=== PATIENT | female | born 1940 | race Caucasian/White ===

== ENCOUNTER 2016-09-02 17:59 | Inpatient (IN) | payer MEDICARE ==
[2016-09-02] MEDS ORDERED: NS 0.9% IV ONE (18:12)
[2016-09-02] MEDS ORDERED: cefTRIAXone(*) 1 GM in NS 0.9% 50 ML* 50 ML IVPB ONE (18:13)
[2016-09-02] MEDS ORDERED: Azithromycin IV(*) 500 MG in NS 0.9% 250 ML* 250 ML IVPB ONE (18:14)
[2016-09-02] MEDS ORDERED: Albuterol/Ipratropium NEB.SOL* Albuterol 2.5 MG/Ipratropium 0.5 MG 3 ML INH ONE (18:15)
[2016-09-02 18:45] LABS: Hematocrit 48 % (35-47); Hemoglobin 15.7 g/dl (12.0-16.0); Mean Corpuscular HGB Conc 33 g/dl (31-36); Mean Corpuscular Hemoglobin 31 pg (27-31); Mean Corpuscular Volume 93 fL (80-97); Red Blood Count 5.11 10^6/ul (4.0-5.4); Red Cell Distribution Width 15 % (10.5-15); White Blood Count 18.3 10^3/ul (3.5-10.8)
[2016-09-02 18:50] LABS: Comments Flag Yes
[2016-09-02 18:51] LABS: Add Diff/Slide Review? Slide Review Added
--- NOTE | 2016-09-02 18:52 | RAD ---
INDICATION: COPD. Febrile. COMPARISON: May 17, 2016 TECHNIQUE: An AP portable view obtained at 1820 hours is submitted. FINDINGS: Bones/Soft Tissues: There are no acute bony findings. Cardiomediastinal: The heart is normal in size. There is interval increase in the size of the right hilum which may reflect adenopathy which is likely reactive given the rapid change or this could be related to a perihilar infiltrate. Lungs: Probable right perihilar and right lower lobe infiltrate. There is hyperinflation. Pleura: There are no pleural effusions. Other: None IMPRESSION: RIGHT-SIDED INFILTRATE AND PRESUMED REACTIVE LYMPHADENOPATHY VERSUS PERIHILAR INFILTRATE. SUGGEST FOLLOW-UP IN 2-4 WEEKS TO DOCUMENT STABILITY AND/OR RESOLUTION
[2016-09-02 18:59] LABS: Albumin 3.6 g/dL (3.2-5.2); BUN/Creatinine Ratio 26.4 (8-20); Calcium 10.1 mg/dL (8.6-10.3); EGFR African American 47.1 (>60); EGFR Non-African American 36.7 (>60); Globulin 3.3 g/dL (2-4); Potassium 3.2 mmol/L (3.5-5.0); Total Bilirubin 0.6 mg/dL (0.2-1.0); Total Protein 6.9 g/dL (6.4-8.9)
[2016-09-02 19:03] LABS: Troponin I 0.06 ng/mL (<0.04)
[2016-09-02] MEDS ORDERED: methylPREDNISolone 125 MG* 2 ML VIAL IV ONE (19:20)
--- NOTE | 2016-09-02 19:22 | ED ---
Sulma Montano Michael, scribed for Elissa Olvera MD on 09/02/16 at 1826 . Shortness of Breath - HPI Summary HPI Summary: 75 y/o female was BIBA to the ED presenting with new onset of SOB that started 2 days ago. The pt also presents with a fever of a 101.1 temperature and tachycardia of 143 bpm. 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 The pt is a current smoker who lives at home with her daughter and is on 2 liters of home oxygen. The PMHx is significant for COPD and Dementia. - History of Current Complaint Chief Complaint: EDShortnessOfBreath Time Seen by Provider: 09/02/16 18:11 Hx Obtained From: EMS, Medical Records Hx From Patient Unobtainable Due To: Dementia Onset/Duration: Gradual Onset, Still Present Timing: Constant Current Severity: Moderate Dyspnea At: Rest Associated Signs & Symptoms: Fever - SOB. A-fib. - Allergy/Home Medications Allergies/Adverse Reactions: Allergies Allergy/AdvReac Type Severity Reaction Status Date / Time Sulfa Drugs Allergy Mild Unknown Verified 07/04/15 17:44 Reaction Details Enoxaparin [From Lovenox] Allergy HIT Verified 07/04/15 19:03 Gabapentin [From Neurontin] Allergy CONFUSION Verified 07/04/15 17:44 Heparin Allergy HIT Verified 07/04/15 19:03 ENVIRONMENTAL Allergy Mild SEASONAL Uncoded 07/02/12 23:37 BEES Allergy Unknown Unknown Uncoded 07/02/12 23:37 Reaction Details PMH/Surg Hx/FS Hx/Imm Hx Endocrine/Hematology History: Reports: Hx Anticoagulant Therapy - Currently on coumadin, Heparin causes thrombocytopenia, Hx Anemia - HX OF Denies: Hx Diabetes, Hx Systemic Lupus Erythematosus Cardiovascular History: Reports: Hx Aneurysm - AAA, Hx Congestive Heart Failure , Hx Deep Vein Thrombosis, Hx Hypercholesterolemia, Hx Hypertension, Other Cardiovascular Problems/Disorders - paroxysmal afib, HLD, Hx DVt Respiratory History: Reports: Hx Asthma, Hx Chronic Obstructive Pulmonary Disease (COPD), Other Respiratory Problems/Disorders - TROUBLE BREATHING ON HUMID DAYS GI History: Reports: Hx Gall Bladder Disease - Cholecystectomy, Hx Gastroesophageal Reflux Disease, Hx Gastrointestinal Bleed, Other GI Disorders - AAA History: Reports: Hx Kidney Infection - 50+ YEARS AGO, Other Problems/ Disorders - Urgency Denies: Hx Dialysis, Hx Renal Disease Musculoskeletal History: Reports: Hx Arthritis - GENERALIZED, Hx Back Problems - Chronic back pain Sensory History: Reports: Hx Cataracts - Removed, Hx Contacts or Glasses - at home Denies: Hx Hearing Aid Opthamlomology History: Reports: Hx Cataracts - Removed, Hx Contacts or Glasses - at home Neurological History: Reports: Hx Dementia, Hx Migraine - HX Psychiatric History: Reports: Hx Depression - ON MEDICATION FOR - Surgical History Surgery Procedure, Year, and Place: TUBAL,TMJ,CATARACTS BILAT,KNEE RIGHT REPLACEMENT,AAA, SANDEEP/APPY Hx Anesthesia Reactions: No - Immunization History Date of Tetanus Vaccine: Unk Date of Influenza Vaccine: Fall 2014 Infectious Disease History: No Infectious Disease History: Reports: Hx of Known/Suspected MRSA Denies: Traveled Outside the [place] in Last 30 Days - Family History Known Family History: Positive: Other - Alzheimer's (mother) - Social History Occupation: Retired Lives: With Family Alcohol Use: Rare Substance Use Type: Reports: None Smoking Status (MU): Heavy Every Day Tobacco Smoker Type: Cigarettes Amount Used/How Often: 1 pack a day Length of Time of Smoking/Using Tobacco: 50 years Have You Smoked in the Last Year: Yes Review of Systems Positive: Fever Positive: Other - a-fib Positive: Shortness Of Breath All Other Systems Reviewed And Are Negative: Yes Physical Exam Triage Information Reviewed: Yes Vital Signs On Initial Exam: Initial Vitals Temp Pulse Resp BP Pulse Ox 101.1 F 143 28 171/110 93 09/02/16 18:01 09/02/16 18:01 09/02/16 18:01 09/02/16 18:01 09/02/16 18:01 Vital Signs Reviewed: Yes Appearance: Positive: Well-Appearing, No Pain Distress Skin: Positive: Warm, Skin Color Reflects Adequate Perfusion, Dry Eyes: Positive: EOMI, AGUSTINA ENT: Positive: Pharynx normal, TMs normal Neck: Positive: Supple, Nontender Respiratory/Lung Sounds: Positive: Breath Sounds Present, Rhonchi - left base. Negative: Rales, Wheezes Cardiovascular: Positive: Tachycardia, Other. Negative: Murmur, Rub - no gallops Abdomen Description: Positive: Nontender, Soft, Other: - no rebound. Negative: Distended, Guarding Bowel Sounds: Positive: Present Musculoskeletal: Positive: Strength/ROM Intact. Negative: Edema Left, Edema Right Neurological: Positive: Sensory/Motor Intact, Alert, Oriented to Person Place, Time, CN Intact II-III Psychiatric: Positive: Affect/Mood Appropriate - Bong Coma Scale Coma Scale Total: 14 Diagnostics - Vital Signs Vital Signs Temp Pulse Resp BP Pulse Ox 09/02/16 18:11 152/105 09/02/16 18:10 112 31 92 09/02/16 18:05 101.1 F 135 29 171/110 93 09/02/16 18:01 101.1 F 143 28 171/110 93 - Laboratory Lab Results: Lab Results 09/02/16 09/02/16 09/02/16 Range/Units 18:30 18:30 18:30 WBC 18.3 H (3.5-10.8) 10^3/ul RBC 5.11 (4.0-5.4) 10^6/ul Hgb 15.7 (12.0-16.0) g/dl Hct 48 H (35-47) % MCV 93 (80-97) fL MCH 31 (27-31) pg MCHC 33 (31-36) g/dl RDW 15 (10.5-15) % Plt Count Pending MPV Pending Neut % (Auto) 94.8 H (38-83) % Lymph % (Auto) 1.9 L (25-47) % [place] % (Auto) 1.9 (1-9) % Eos % (Auto) 0 (0-6) % Baso % (Auto) 1.4 (0-2) % Absolute Neuts (auto) 17.4 H (1.5-7.7) 10^3/ul Absolute Lymphs (auto) 0.3 L (1.0-4.8) 10^3/ul Absolute Monos (auto) 0.4 (0-0.8) 10^3/ul Absolute Eos (auto) 0 (0-0.6) 10^3/ul Absolute Basos (auto) 0.3 H (0-0.2) 10^3/ul Absolute Nucleated RBC 0 10^3/ul Nucleated RBC % 0 INR (Anticoag Therapy) 1.09 (0.89-1.11) APTT 35.6 (26.0-36.3) seconds Sodium 136 (133-145) mmol/L Potassium 3.2 L (3.5-5.0) mmol/L Chloride 96 L (101-111) mmol/L Carbon Dioxide 28 (22-32) mmol/L Anion Gap 12 H (2-11) mmol/L BUN 37 H (6-24) mg/dL Creatinine 1.40 H (0.51-0.95) mg/dL Est GFR ( Amer) 47.1 (>60) Est GFR (Non-Af Amer) 36.7 (>60) BUN/Creatinine Ratio 26.4 H (8-20) Glucose 163 H (70-100) mg/dL Lactic Acid (0.5-2.0) mmol/L Calcium 10.1 (8.6-10.3) mg/dL Total Bilirubin 0.60 (0.2-1.0) mg/dL AST 33 (13-39) U/L ALT 31 (7-52) U/L Alkaline Phosphatase 66 (34-104) U/L Troponin I 0.06 H* (<0.04) ng/mL Total Protein 6.9 (6.4-8.9) g/dL Albumin 3.6 (3.2-5.2) g/dL Globulin 3.3 (2-4) g/dL Albumin/Globulin Ratio 1.1 (1-3) Influenza A (Rapid) (Negative) Influenza B (Rapid) (Negative) 09/02/16 09/02/16 Range/Units 18:30 18:56 WBC (3.5-10.8) 10^3/ul RBC (4.0-5.4) 10^6/ul Hgb (12.0-16.0) g/dl Hct (35-47) % MCV (80-97) fL MCH (27-31) pg MCHC (31-36) g/dl RDW (10.5-15) % Plt Count MPV Neut % (Auto) (38-83) % Lymph % (Auto) (25-47) % [place] % (Auto) (1-9) % Eos % (Auto) (0-6) % Baso % (Auto) (0-2) % Absolute Neuts (auto) (1.5-7.7) 10^3/ul Absolute Lymphs (auto) (1.0-4.8) 10^3/ul Absolute Monos (auto) (0-0.8) 10^3/ul Absolute Eos (auto) (0-0.6) 10^3/ul Absolute Basos (auto) (0-0.2) 10^3/ul Absolute Nucleated RBC 10^3/ul Nucleated RBC % INR (Anticoag Therapy) (0.89-1.11) APTT (26.0-36.3) seconds Sodium (133-145) mmol/L Potassium (3.5-5.0) mmol/L Chloride (101-111) mmol/L Carbon Dioxide (22-32) mmol/L Anion Gap (2-11) mmol/L BUN (6-24) mg/dL Creatinine (0.51-0.95) mg/dL Est GFR ( Amer) (>60) Est GFR (Non-Af Amer) (>60) BUN/Creatinine Ratio (8-20) Glucose (70-100) mg/dL Lactic Acid 4.4 H* (0.5-2.0) mmol/L Calcium (8.6-10.3) mg/dL Total Bilirubin (0.2-1.0) mg/dL AST (13-39) U/L ALT (7-52) U/L Alkaline Phosphatase (34-104) U/L Troponin I (<0.04) ng/mL Total Protein (6.4-8.9) g/dL Albumin (3.2-5.2) g/dL Globulin (2-4) g/dL Albumin/Globulin Ratio (1-3) Influenza A (Rapid) Negative (Negative) Influenza B (Rapid) Negative (Negative) Result Diagrams: 09/02/16 18:30 09/02/16 18:30 Lab Statement: Any lab studies that have been ordered have been reviewed, and results considered in the medical decision making process. - Radiology CXR Xray Interpretation: Positive (See Comments) - RIGHT-SIDED INFILTRATE AND PRESUMED REACTIVE LYMPHADENOPATHY VERSUS PERIHILAR INFILTRATE. SUGGEST FOLLOW- UP IN 2-4 WEEKS TO DOCUMENT STABILITY AND/OR RESOLUTION Radiology Interpretation Completed By: Radiologist - EKG EK EKG Rhythm: Atrial Fibrillation - 140 bpm EKG Interpretation: non specific T wave changes. poor R wave progression. LVH. EKG Comparison: Other - Compared to EKG on 05/17-EKG is similar except for increase in t wave changes and increased heart rate on todays EKG Course/Dx - Course Course Of Treatment: Suspected sepsis-sepsis protocol started. Consulted with Dr. Wang at 1850-pt will be admitted to the hospital - Diagnoses Provider Diagnoses: COPD exacerbation, Pneumonia Discharge - Discharge Plan Condition: Guarded Disposition: ADMITTED TO [facility] The documentation as recorded by the Sulma franz Michael accurately reflects the service I personally performed and the decisions made by me, Elissa Olvera MD.
[2016-09-02 19:24] LABS: Immature Granulocytes 34 % (0-9); Metamyelocytes % 11 % (0-2); Neutrophil % 63 % (38-83); RBC Morphology Normal (Normal)
[2016-09-02 19:25] LABS: Mean Platelet Volume 13 um3 (7.4-10.4)
[2016-09-02] MEDS ORDERED: Albuterol 2.5 MG/3 ML NEB.SOL* (0.083%) INH PRN (19:40)
[2016-09-02] MEDS ORDERED: Ipratropium 0.5MG/2.5ML NEB* 0.5 MG/2.5 ML NEB.SOLN INH PRN (19:42)
[2016-09-02] MEDS ORDERED: methylPREDNISolone 125 MG* 2 ML VIAL IV SCH ×2 (20:00)
[2016-09-02] MEDS ORDERED: LORazepam INJ* 2 MG/ML 1 ML VIAL IV ONE (20:50)
[2016-09-02] MEDS ORDERED: LORazepam INJ* 2 MG/ML 1 ML VIAL ONE (20:54)
[2016-09-02] MEDS ORDERED: HYDROmorphone INJ* 1 MG/ML CARPUJECT SYRINGE ONE (20:55)
[2016-09-02 20:56] LABS: Urine Bacteria 1+ (Absent); Urine Bilirubin Negative (Negative); Urine Glucose Negative (Negative); Urine Nitrite Negative (Negative)
[2016-09-02] MEDS ORDERED: Amiodarone TAB* 200 MG PO SCH (21:00)
[2016-09-02] MEDS: HYDROmorphone INJ* 1 MG/ML CARPUJECT SYRINGE IV PRN ×2 (21:09→23:51)
--- NOTE | 2016-09-02 22:23 | HP ---
CC: Dr. Mcdonald ADMISSION HISTORY AND PHYSICAL: DATE OF ADMISSION: 09/02/16 CHIEF COMPLAINT: Shortness of breath. HISTORY OF PRESENT ILLNESS: Ms. Tovar is a 75-year-old woman with history of severe COPD, who continues to smoke, who was found to be disoriented this afternoon by her daughter. She appeared acutely short of breath. Her daughter reports she talked to her on the phone yesterday and she sounded fine and she saw her on and she was at her baseline. At baseline, she uses her oxygen p.r.n. and smokes 1 to 2 packs per day. The patient lives alone. The patient cannot give me her history due to the respiratory distress. Review of the chart shows that she was last admitted to this hospital on through 07/12/15 with abdominal pain, rectus sheath hematoma, anemia, at that time her anticoagulation for atrial fibrillation was stopped. PAST MEDICAL HISTORY: Includes paroxysmal atrial fibrillation, hypertension, hyperlipidemia, COPD, history of DVT, history of HIT, depression, GERD, and Alzheimer's. PAST SURGICAL HISTORY: AAA repair, cholecystectomy complicated by abdominal abscess, right total knee replacement, and appendectomy. MEDICATIONS: On admission are: 1. Tylenol as needed. 2. Albuterol inhaler 2 puffs q.4 hours p.r.n. 3. Amiodarone 100 mg p.o. q.h.s. 4. Calcium 1 tab p.o. q. day. 5. EpiPen as needed. 6. Iron 325 mg p.o. q. day. 7. Furosemide 40 mg p.o. q. day. 8. Melatonin 9 mg p.o. q.h.s. 9. Toprol-XL 50 mg p.o. q. day. 10. Mometasone/formoterol 200/5 two inhalations inhaled b.i.d. 11. Singulair 10 mg p.o. q.a.m. 12. Omeprazole 20 mg p.o. b.i.d. 13. Potassium chloride 20 mEq p.o. q.a.m. 14. Seroquel 25 mg p.o. q.h.s. 15. Simvastatin 20 mg p.o. q.h.s. 16. Spiriva 1 inhalation q. day. 17. Venlafaxine SR 150 mg p.o. q.h.s. 18. Oxycodone SR 15 mg p.o. b.i.d. 19. Oxycodone 5 mg 1 to 2 tabs p.o. q.6 hours p.r.n. pain. ALLERGIES: SULFA DRUGS, ENOXAPARIN and ALL OTHER HEPARINS, GABAPENTIN, BEE STINGS, and ENVIRONMENTAL ALLERGIES. FAMILY HISTORY: Notable for mother of Alzheimer's disease in . She is retired. She is . She has 4 children. Her daughter, Thomas, is present. Her daughter, Radha, is her healthcare proxy who is also present. SOCIAL HISTORY: She still smokes 1 to 2 packs per day. No alcohol or drug use. REVIEW OF SYSTEMS: The patient could not complete a review of systems due to respiratory distress. PHYSICAL EXAMINATION GENERAL: She is an elderly woman, somnolent, arousable to voice, in severe respiratory distress. VITAL SIGNS: Temperature is 38.4; pulse is 124 to 128; respirations are 24 to 32; blood pressure is 167/127; O2 sat is 92% on Vapotherm, down to 80% on Vapotherm. HEENT: Head is normocephalic, atraumatic, somewhat cachetic. Oropharynx: No lesions. NECK: No JVD. No carotid bruit. No thyromegaly. LUNGS: Diminished throughout. No rales or wheezes. HEART: Tachycardiac, irregular. No murmurs. ABDOMEN: Soft, nontender, nondistended, positive bowel sounds. No hepatosplenomegaly. EXTREMITIES: No peripheral edema. Dorsalis pedis pulses 1+ bilaterally. NEUROLOGIC: Cranial nerves II through XII are grossly intact. She is moving all 4 extremities. She is somnolent, knows her name when stimulated and answers questions, though she is quite inaudible due to her respiratory distress. DIAGNOSTIC STUDIES/LAB DATA: Sodium 136, potassium 3.2, chloride 96, bicarb 28 , BUN 37, creatinine 1.4, glucose 163, calcium 10.1, lactic acid 4.4. AST 33, ALT 31. White count 18.3, hemoglobin 15.7, hematocrit 48%, platelets are 143. INR 1.09 , PTT 35.6. EKG shows atrial fibrillation with rapid ventricular response at 130. Chest x-ray shows right perihilar infiltrate versus mass as well as a right lower lobe infiltrate. ASSESSMENT AND PLAN: A 75-year-old woman with sepsis defined by having systemic inflammatory response syndrome criteria and pneumonia as well as elevated lactate. She is not hypertensive at this time. Fluid infusion started in the emergency department will be continued in the ICU. Due to her hypokalemia, we have chosen to use normal saline with potassium supplement. To address source control, she will have azithromycin and ceftriaxone for community -acquired pneumonia. For her chronic obstructive pulmonary disease exacerbation, she will be on IV Solu- Medrol and nebulizers. This patient is high risk of decomposition and from this acute respiratory failure. She has been started on BiPAP and no higher level respiratory intervention is planned. Tachycardia and atrial fibrillation will be initially addressed by treatment of respiratory distress and volume resuscitation. I discussed code status with the patient's daughters. The daughter, Radha, is healthcare proxy, signed a do not resuscitate, do not intubate on the MOLST form and this was agreed upon by one and all present. For DVT prophylaxis, she is very high risk but she can only have sequential compression devices due to her known history of heparin-induced thrombocytopenia. I am holding most of her oral meds because she probably cannot swallow given her respiratory distress. We will continue her on amiodarone and Toprol if possible to give her some rate control, but mainly rate control accomplished by giving Tylenol and IV fluids to control sepsis and hypovolemia. [id number]/[facility] #: [id number] MTDD
[2016-09-02] MEDS: NS 0.9% w/ 20 Meq KCL 1000 ML* 1,000 ML IV SCH (22:51)
[2016-09-02] MEDS ORDERED: AMIODARONE IV ONE (23:30)
[2016-09-02] MEDS ORDERED: AMIODARONE IV SCH (23:30)
[2016-09-02] MEDS: Omeprazole CAP* 20 MG PO SCH (23:47)
[2016-09-03] MEDS ORDERED: Diltiazem IV* 5 MG/ML 5 ML VIAL (for loading dose/IV Push) (25 MG) ONE (00:54)
[2016-09-03] MEDS: NS 0.9% w/ 20 Meq KCL 1000 ML* 1,000 ML IV SCH ×3 (01:00→16:51)
[2016-09-03] MEDS: Diltiazem IV* 5 MG/ML 5 ML VIAL (for loading dose/IV Push) (25 MG) IV PUSH ONE ×2 (03:41→05:15)
[2016-09-03] MEDS: methylPREDNISolone 125 MG* 2 ML VIAL IV SCH ×3 (03:50→21:06)
[2016-09-03] MEDS ORDERED: Diltiazem IV* 5 MG/ML 5 ML VIAL (for loading dose/IV Push) (25 MG) IV PUSH ONE (04:45)
[2016-09-03] MEDS ORDERED: Diltiazem DRIP* 100 MG/100 ML ADDV.BAG IVPB ONE (05:08)
[2016-09-03] MEDS: HYDROmorphone INJ* 1 MG/ML CARPUJECT SYRINGE IV PRN ×2 (05:10→16:50)
[2016-09-03 05:51] LABS: Hematocrit 45 % (35-47); Hemoglobin 14.9 g/dl (12.0-16.0); Mean Corpuscular HGB Conc 33 g/dl (31-36); Mean Corpuscular Hemoglobin 31 pg (27-31); Mean Corpuscular Volume 93 fL (80-97); Mean Platelet Volume 13 um3 (7.4-10.4); Red Blood Count 4.85 10^6/ul (4.0-5.4); Red Cell Distribution Width 15 % (10.5-15); White Blood Count 16.8 10^3/ul (3.5-10.8)
[2016-09-03 05:59] LABS: Comments Flag Yes
[2016-09-03 06:03] LABS: BUN/Creatinine Ratio 31.9 (8-20); Calcium 9.5 mg/dL (8.6-10.3); EGFR African American 60.4 (>60); EGFR Non-African American 46.9 (>60); Magnesium 1.8 mg/dL (1.9-2.7); Potassium 3.7 mmol/L (3.5-5.0)
[2016-09-03 06:15] LABS: Troponin I 0.06 ng/mL (<0.04)
[2016-09-03] MEDS ORDERED: Metoprolol Tartrate IV* 1 MG/ML 5 ML VIAL ONE (08:18)
[2016-09-03] MEDS ORDERED: Metoprolol Tartrate IV* 1 MG/ML 5 ML VIAL IV ONE (08:20)
[2016-09-03] MEDS: Metoprolol Succinate XL TAB* 50 MG PO SCH (08:22)
[2016-09-03] MEDS: Omeprazole CAP* 20 MG PO SCH ×2 (08:22→21:07)
[2016-09-03] MEDS ORDERED: Enalaprilat IV* 1.25 MG/ML 1 ML VIAL (1.25 MG) IV PRN (09:24)
[2016-09-03] MEDS ORDERED: Enalaprilat IV* 1.25 MG/ML 1 ML VIAL (1.25 MG) ONE (09:30)
--- NOTE | 2016-09-03 10:36 | PN ---
Subjective Date of Service: 09/03/16 Interval History: Patient has been on BiPAP since admission, just came off this AM. She is feeling alright, states breathing is OK. Denies chest pain. Willing to quit smoking, has used patch in past. Overnight started on diltiazem drip. Also received IV amiodarone due to inability to take PO amio. Family History: Unchanged from Admission Social History: Unchanged from Admission Past Medical History: Unchanged from Admission Objective Active Medications: Acetaminophen (Tylenol Tab*) 650 mg PO Q4H PRN PRN Reason: PAIN OR TEMPERATURE Albuterol (Ventolin 2.5 Mg/3 Ml Neb.Gianna*) 2.5 mg INH Q2H PRN PRN Reason: SOB/WHEEZING Amiodarone HCl (Cordarone Tab*) 100 mg PO 1800 YONY Hydromorphone HCl (Dilaudid Iv*) 0.5 mg IV Q2H PRN PRN Reason: PAIN Last Admin: 09/03/16 05:10 Dose: 0.5 mg Potassium Chloride/Sodium Chloride (Ns 0.9% W/ 20 Meq Kcl 1000 Ml*) 1,000 mls @ 100 mls/hr IV PER RATE [facility] Last Admin: 09/03/16 07:12 Dose: 100 mls/hr Ceftriaxone Sodium 1,000 mg/ (Sodium Chloride) 50 mls @ 200 mls/hr IVPB Q24H YONY Azithromycin 500 mg/ Sodium (Chloride) 250 mls @ 250 mls/hr IVPB Q24H YONY Diltiazem HCl (Cardizem Iv Advan*) 100 mg in 100 mls @ 5 mls/hr IVPB .PER RATE [facility] PRN Reason: 5 MG/HR Ipratropium Benoit (Atrovent 0.5 Mg Neb.Gianna*) 0.5 mg INH Q6H PRN PRN Reason: SOB/WHEEZING Methylprednisolone Sodium Succinate (Solu-Medrol*) 60 mg IV Q8H [facility] Last Admin: 09/03/16 03:50 Dose: 60 mg Metoprolol Succinate (Toprol Xl Tab*) 50 mg PO QAM [facility] Last Admin: 09/03/16 08:22 Dose: Not Given Omeprazole (Prilosec Cap*) 20 mg PO BID [facility] Last Admin: 09/03/16 08:22 Dose: Not Given Vital Signs 09/03/16 09/03/16 09/03/16 02:30 03:00 03:30 Temperature Pulse Rate 106 95 Respiratory 18 16 17 Rate Blood Pressure 151/82 147/111 179/124 (mmHg) O2 Sat by Pulse 100 100 Oximetry 09/03/16 09/03/16 09/03/16 04:30 04:35 05:00 Temperature Pulse Rate 103 100 103 Respiratory 25 23 23 Rate Blood Pressure 187/137 197/130 206/111 (mmHg) O2 Sat by Pulse 93 92 97 Oximetry 09/03/16 09/03/16 09/03/16 05:10 05:30 06:00 Temperature Pulse Rate 113 99 Respiratory 24 19 22 Rate Blood Pressure 179/134 169/130 (mmHg) O2 Sat by Pulse 92 98 Oximetry Oxygen Devices in Use Now: Nasal Cannula Eyes: No Scleral Icterus Ears/Nose/Mouth/Throat: Clear Oropharnyx Neck: NL Appearance and Movements; NL JVP Respiratory: Symmetrical Chest Expansion and Respiratory Effort, - - diminished throughout Cardiovascular: - - tachy, irregular, no murmur Abdominal: NL Sounds; No Tenderness; No Distention Extremities: No Edema Neurological: - - alert, oriented to self, hospital (unknown hospital) Lines/Tubes/Other Access: Clean, Dry and Intact Peripheral IV Result Diagrams: 09/03/16 05:35 09/03/16 05:35 Additional Lab and Data: Laboratory Tests 09/02/16 09/03/16 09/03/16 18:30 05:35 05:35 Lactic Acid 4.4 H* 2.0 Troponin I 0.06 H* Microbiology and Other Data: Microbiology 09/03/16 04:20 Nasal Screen MRSA (PCR)([facility]EX[facility]ER) - Final Nasal Mrsa Positive Assess/Plan/Problems-Billing Assessment: 75 yo woman w/ severe COPD, presented w/ acute hypoxic respiratory failure, required NIPPV. - Patient Problems (1) Acute respiratory failure with hypoxia Current Visit: Yes Status: Acute Priority: High Code(s): J96.01 - ACUTE RESPIRATORY FAILURE WITH HYPOXIA SNOMED Code(s): 56595589 Comment: -Patient appears to be doing well after 12 hrs on BiPAP. -Will tolerate O2sat in 88-92 range -consider restart BiPAP in evening, sooner if needed. (2) COPD exacerbation Current Visit: No Status: Acute Priority: High Code(s): J44.1 - CHRONIC OBSTRUCTIVE PULMONARY DISEASE W (ACUTE) EXACERBATION SNOMED Code(s): 646865818 Comment: -Continue treatment w/ IV solu-medrol, nebulizers -Discussed smoking cessation, will use nicotine patch (3) Pneumonia Current Visit: No Status: Acute Priority: High Code(s): J18.9 - PNEUMONIA , UNSPECIFIED ORGANISM SNOMED Code(s): 955618166 Comment: -Continue ceftriaxone and azithro, day 2. -Will need repeat CXR or CT chest to assess hilar lymphadenopathy (4) Hypertension Current Visit: No Status: Chronic Priority: Medium Code(s): I10 - ESSENTIAL (PRIMARY) HYPERTENSION SNOMED Code(s): 17092532 Comment: -BP significantly out of control. Stress/anxiety may play role. -Will start oral diltiazem and RADHA -Continue PO Toprol XL (5) Atrial fibrillation with RVR Current Visit: Yes Status: Acute Priority: Medium Code(s): I48.91 - UNSPECIFIED ATRIAL FIBRILLATION SNOMED Code(s): 181196447176176 Comment: -rate control improved on diltiazem drip. Will attempt to convert to PO -continue amiodarone PO, but unclear indication if a-fib is chronic, generally would be used for rhythm control. (6) DVT prophylaxis Current Visit: No Status: Acute Priority: Low Code(s): ZIS9880 - SNOMED Code(s): 494424288 Comment: SCDs, no heparins due to HIT
[2016-09-03] MEDS: Diltiazem TAB* 30 MG PO SCH ×3 (11:49→23:41)
[2016-09-03] MEDS: Diltiazem DRIP* 100 MG/100 ML ADDV.BAG IVPB SCH ×2 (12:23→18:12)
[2016-09-03] MEDS ORDERED: Enalapril TAB* 5 MG PO SCH (14:00)
[2016-09-03] MEDS ORDERED: Morphine INJ* 2 MG/ML 1 ML CARPUJECT ONE (14:14)
[2016-09-03] MEDS: Morphine INJ* 2 MG/ML 1 ML CARPUJECT IV PRN (14:17)
[2016-09-03] MEDS: Magnesium Oxide TAB* 400 MG PO SCH (14:27)
[2016-09-03] MEDS ORDERED: Captopril TAB* 12.5 MG ONE (16:45)
[2016-09-03] MEDS: Captopril TAB* 12.5 MG PO SCH ×2 (16:50→21:07)
[2016-09-03] MEDS: Donepezil TAB* 5 MG PO SCH (16:50)
[2016-09-03] MEDS ORDERED: Amiodarone TAB* 200 MG PO SCH (18:00)
[2016-09-03] MEDS: cefTRIAXone VIAL(*) 1,000 MG in NS 0.9% 50 ML* 50 ML IVPB SCH (18:07)
[2016-09-03] MEDS: Azithromycin IV(*) 500 MG in NS 0.9% 250 ML* 250 ML IVPB SCH (18:43)
[2016-09-03] MEDS ORDERED: Nicotine Patch Removal NOTE FOLLOW UP SCH (21:00)
[2016-09-03] MEDS: Venlafaxine EXT RELEASE CAP* 75 MG PO SCH (21:07)
[2016-09-03] MEDS: Atorvastatin* 10 MG TAB PO SCH (21:08)
[2016-09-03] MEDS: QUEtiapine TAB* 25 MG PO SCH (21:26)
[2016-09-03] MEDS: hydrALAZINE IV* 20 MG/ML VIAL IV PRN (23:41)
[2016-09-04] MEDS ORDERED: diPHENhydraMINE IV* 50 MG/ML 1 ml VIAL (BENADRYL) IV PRN (00:15)
[2016-09-04] MEDS ORDERED: diPHENhydraMINE IV* 50 MG/ML 1 ml VIAL (BENADRYL) ONE (00:22)
[2016-09-04] MEDS: Morphine INJ* 2 MG/ML 1 ML CARPUJECT IV PRN ×3 (00:39→16:21)
[2016-09-04] MEDS: Diltiazem DRIP* 100 MG/100 ML ADDV.BAG IVPB SCH ×3 (00:56→14:12)
--- NOTE | 2016-09-04 02:12 | PN ---
Progress Note - Progress Note Note: Nursing called re: patient reporting chest discomfort, relieved via 2mg morphine. ECG stable, unchanged from admission excepting better rate control. Troponin increased from 0.06 to 0.12, suspect 2nd her primary issues of pneumonia, COPD, & hypoxic respiratory failure. Doubt primary coronary occlusive etiology. Continue to monitor, trend troponin.
[2016-09-04] MEDS ORDERED: Morphine INJ* 10 MG/ML 1 ML CARPUJECT IV ONE (02:46)
[2016-09-04] MEDS ORDERED: Morphine INJ* 10 MG/ML 1 ML CARPUJECT ONE (02:48)
[2016-09-04] MEDS: methylPREDNISolone 125 MG* 2 ML VIAL IV SCH ×3 (04:28→20:24)
[2016-09-04] MEDS: hydrALAZINE IV* 20 MG/ML VIAL IV PRN (04:35)
[2016-09-04] MEDS: NS 0.9% w/ 20 Meq KCL 1000 ML* 1,000 ML IV SCH (05:31)
[2016-09-04] MEDS: Diltiazem TAB* 30 MG PO SCH ×2 (06:02→12:05)
[2016-09-04 06:20] LABS: Troponin I 0.1 ng/mL (<0.04)
[2016-09-04] MEDS ORDERED: Nicotine PATCH 21 MG/24 HR* PATCH TRANSDERM SCH (08:00)
--- NOTE | 2016-09-04 09:39 | PN ---
Subjective Date of Service: 09/04/16 Interval History: Patient seen and examined at bedside. She is restless and picking at wires and tubes. When asked if she has any chest pain, trouble breathing, or discomfort, she states "No." Sister is at bedside. Concern was expressed for patient's agitation, as well as her living condition at home, as she lives home alone and falls frequently; family also expressed concern for her nutritional intake at home. Telemetry: Atrial fibrillation 120s-140s Family History: Unchanged from Admission Social History: Unchanged from Admission Past Medical History: Unchanged from Admission Objective Active Medications: Acetaminophen (Tylenol Tab*) 650 mg PO Q4H PRN PRN Reason: PAIN OR TEMPERATURE Albuterol (Ventolin 2.5 Mg/3 Ml Neb.Gianna*) 2.5 mg INH Q2H PRN PRN Reason: SOB/WHEEZING Atorvastatin Calcium (Lipitor*) 10 mg PO BEDTIME [facility] Last Admin: 09/03/16 21:08 Dose: 10 mg Captopril (Capoten Tab*) 12.5 mg PO TID [facility] Last Admin: 09/03/16 21:07 Dose: 12.5 mg Diltiazem HCl (Cardizem Tab*) 30 mg PO Q6HR [facility] Last Admin: 09/04/16 06:02 Dose: 30 mg Diphenhydramine HCl (Benadryl Iv*) 25 mg IV ONCE PRN PRN Reason: RESTLESSNESS Donepezil HCl (Aricept Tab*) 5 mg PO QPM [facility] Last Admin: 09/03/16 16:50 Dose: 5 mg Hydralazine HCl (Apresoline Iv*) 10 mg IV Q4H PRN PRN Reason: Systolic >170 Last Admin: 09/04/16 04:35 Dose: 10 mg Hydromorphone HCl (Dilaudid Iv*) 0.5 mg IV Q2H PRN PRN Reason: PAIN Last Admin: 09/03/16 16:50 Dose: 0.5 mg Potassium Chloride/Sodium Chloride (Ns 0.9% W/ 20 Meq Kcl 1000 Ml*) 1,000 mls @ 100 mls/hr IV PER RATE [facility] Last Admin: 09/04/16 05:31 Dose: 100 mls/hr Ceftriaxone Sodium 1,000 mg/ (Sodium Chloride) 50 mls @ 200 mls/hr IVPB Q24H [facility] Last Admin: 09/03/16 18:07 Dose: 200 mls/hr Azithromycin 500 mg/ Sodium (Chloride) 250 mls @ 250 mls/hr IVPB Q24H [facility] Last Admin: 09/03/16 18:43 Dose: 250 mls/hr Diltiazem HCl (Cardizem Iv Advan*) 100 mg in 100 mls @ 5 mls/hr IVPB .PER RATE [facility] PRN Reason: 5 MG/HR Last Admin: 09/04/16 07:50 Dose: 15 mls/hr Ipratropium [place] (Atrovent 0.5 Mg Neb.Gianna*) 0.5 mg INH Q6H PRN PRN Reason: SOB/WHEEZING Magnesium Oxide (Magox 400 Tab*) 400 mg PO DAILY [facility] Last Admin: 09/03/16 14:27 Dose: 400 mg Methylprednisolone Sodium Succinate (Solu-Medrol*) 60 mg IV Q8H [facility] Last Admin: 09/04/16 04:28 Dose: 60 mg Metoprolol Succinate (Toprol Xl Tab*) 50 mg PO QAM [facility] Last Admin: 09/03/16 08:22 Dose: Not Given Morphine Sulfate (Morphine Inj (Syringe)*) 2 mg IV Q3H PRN PRN Reason: PAIN - MODERATE Last Admin: 09/04/16 00:39 Dose: 2 mg Nicotine (Nicotine Patch 21 Mg/24 Hr*) 1 patch TRANSDERM DAILY@0800 [facility] Omeprazole (Prilosec Cap*) 20 mg PO BID [facility] Last Admin: 09/03/16 21:07 Dose: 20 mg Pharmacy Profile Note (Nicotine Patch Removal Note*) 1 note FOLLOW UP 2100 [facility] Last Admin: 09/03/16 21:41 Dose: Not Given Quetiapine Fumarate (Seroquel Tab*) 25 mg PO BEDTIME [facility] Last Admin: 09/03/16 21:26 Dose: 25 mg Venlafaxine HCl (Effexor Xr Cap*) 150 mg PO BEDTIME [facility] Last Admin: 09/03/16 21:07 Dose: 150 mg Vital Signs 09/03/16 09/03/16 09/03/16 09:45 10:00 10:15 Temperature Pulse Rate 94 96 71 Respiratory 23 22 25 Rate Blood Pressure 177/107 181/99 179/102 (mmHg) O2 Sat by Pulse 99 99 95 Oximetry 02/09/03/16 09/03/16 10:30 10:45 11:00 Temperature Pulse Rate 85 92 93 Respiratory 24 23 28 Rate Blood Pressure 186/97 177/125 188/97 (mmHg) O2 Sat by Pulse 100 99 90 Oximetry 09/03/16 09/03/16 09/03/16 11:15 11:30 11:40 Temperature Pulse Rate 84 84 88 Respiratory 25 27 27 Rate Blood Pressure 143/80 107/60 156/111 (mmHg) O2 Sat by Pulse 99 99 86 Oximetry 09/03/16 09/03/16 09/03/16 11:45 12:00 12:16 Temperature 99.3 F Pulse Rate 91 39 81 Respiratory 24 21 28 Rate Blood Pressure 181/102 184/168 148/93 (mmHg) O2 Sat by Pulse 100 88 96 Oximetry 09/03/16 09/03/16 09/03/16 12:30 12:40 12:45 Temperature Pulse Rate 96 74 86 Respiratory 24 26 27 Rate Blood Pressure 109/74 164/100 179/116 (mmHg) O2 Sat by Pulse 100 95 100 Oximetry 09/03/16 09/03/16 09/03/16 13:00 13:16 13:30 Temperature Pulse Rate 78 94 93 Respiratory 23 27 27 Rate Blood Pressure 193/95 168/105 (mmHg) O2 Sat by Pulse 96 71 98 Oximetry 09/03/16 09/03/16 09/03/16 13:45 13:49 14:00 Temperature Pulse Rate 88 84 Respiratory 30 18 24 Rate Blood Pressure 190/92 188/87 (mmHg) O2 Sat by Pulse 80 100 Oximetry 09/03/16 09/03/16 09/03/16 14:17 14:30 14:31 Temperature Pulse Rate 68 84 Respiratory 33 28 24 Rate Blood Pressure 189/169 211/187 (mmHg) O2 Sat by Pulse 100 100 Oximetry 09/03/16 09/03/16 09/03/16 14:33 14:45 15:00 Temperature Pulse Rate 79 92 33 Respiratory 23 25 26 Rate Blood Pressure 197/103 178/106 180/98 (mmHg) O2 Sat by Pulse 96 100 89 Oximetry 09/03/16 09/03/16 09/03/16 15:15 15:30 15:42 Temperature Pulse Rate 90 81 Respiratory 30 21 22 Rate Blood Pressure 178/93 182/97 (mmHg) O2 Sat by Pulse 100 100 Oximetry 09/03/16 09/03/16 09/03/16 15:45 16:00 16:11 Temperature 99.3 F Pulse Rate 87 100 Respiratory 23 24 27 Rate Blood Pressure 185/102 181/123 185/94 (mmHg) O2 Sat by Pulse 100 99 Oximetry 09/03/16 09/03/16 09/03/16 16:15 16:30 16:45 Temperature Pulse Rate 82 51 45 Respiratory 27 21 25 Rate Blood Pressure 184/103 199/84 183/104 (mmHg) O2 Sat by Pulse 94 93 90 Oximetry 09/03/16 09/03/16 09/03/16 16:50 17:00 17:15 Temperature Pulse Rate 82 83 Respiratory 25 24 24 Rate Blood Pressure 188/92 184/93 (mmHg) O2 Sat by Pulse 100 97 Oximetry 09/03/16 09/03/16 09/03/16 17:30 17:45 18:00 Temperature Pulse Rate 98 82 94 Respiratory 23 20 21 Rate Blood Pressure 185/116 164/147 (mmHg) O2 Sat by Pulse 99 97 100 Oximetry 09/03/16 09/03/16 09/03/16 18:01 18:15 18:30 Temperature Pulse Rate 99 118 95 Respiratory 22 24 22 Rate Blood Pressure 180/123 180/119 185/91 (mmHg) O2 Sat by Pulse 99 93 100 Oximetry 09/03/16 09/03/16 09/03/16 18:45 18:57 19:00 Temperature Pulse Rate 93 62 Respiratory 24 26 Rate Blood Pressure 194/86 (mmHg) O2 Sat by Pulse 92 90 Oximetry 09/03/16 09/03/16 09/03/16 19:01 19:03 19:15 Temperature Pulse Rate 116 Respiratory 14 24 Rate Blood Pressure 187/165 162/100 (mmHg) O2 Sat by Pulse 94 Oximetry 09/03/16 09/03/16 09/03/16 19:30 19:34 19:45 Temperature Pulse Rate 94 100 55 Respiratory 27 24 24 Rate Blood Pressure 130/88 176/87 (mmHg) O2 Sat by Pulse 100 99 97 Oximetry 09/03/16 09/03/16 09/03/16 20:00 20:15 20:30 Temperature Pulse Rate 94 88 107 Respiratory 23 25 25 Rate Blood Pressure 177/88 177/108 182/97 (mmHg) O2 Sat by Pulse 100 97 96 Oximetry 09/03/16 09/03/16 09/03/16 20:45 21:00 21:15 Temperature Pulse Rate 99 95 97 Respiratory 27 22 25 Rate Blood Pressure 189/87 190/125 186/85 (mmHg) O2 Sat by Pulse 98 100 100 Oximetry 09/03/16 09/03/16 09/03/16 21:30 21:45 22:00 Temperature 98.1 F Pulse Rate 95 91 98 Respiratory 18 25 23 Rate Blood Pressure 178/120 190/67 192/98 (mmHg) O2 Sat by Pulse 99 98 100 Oximetry 09/03/16 09/03/16 09/03/16 22:30 22:58 23:00 Temperature Pulse Rate 33 101 Respiratory 28 19 21 Rate Blood Pressure 197/98 186/89 (mmHg) O2 Sat by Pulse 89 98 Oximetry 09/03/16 09/03/16 09/03/16 23:30 23:41 23:50 Temperature 99.1 F Pulse Rate 98 Respiratory 25 26 Rate Blood Pressure 188/87 (mmHg) O2 Sat by Pulse 97 Oximetry 09/04/16 09/04/16 09/04/16 00:00 00:01 00:05 Temperature Pulse Rate 96 98 108 Respiratory 22 29 30 Rate Blood Pressure 189/108 (mmHg) O2 Sat by Pulse 96 97 98 Oximetry 09/04/16 09/04/16 09/04/16 00:30 00:39 00:57 Temperature Pulse Rate Respiratory 26 18 Rate Blood Pressure 169/93 (mmHg) O2 Sat by Pulse Oximetry 09/04/16 09/04/16 09/04/16 01:00 01:30 01:52 Temperature Pulse Rate 122 110 Respiratory 26 27 22 Rate Blood Pressure 199/88 198/117 (mmHg) O2 Sat by Pulse 98 95 Oximetry 09/04/16 09/04/16 09/04/16 02:00 02:30 02:59 Temperature Pulse Rate 95 87 Respiratory 29 32 27 Rate Blood Pressure 178/95 187/115 (mmHg) O2 Sat by Pulse 97 94 Oximetry 09/04/16 09/04/16 09/04/16 03:00 03:30 03:32 Temperature Pulse Rate 115 117 139 Respiratory 23 28 25 Rate Blood Pressure 160/96 126/92 183/96 (mmHg) O2 Sat by Pulse 96 96 94 Oximetry 09/04/16 09/04/16 09/04/16 03:40 04:00 04:02 Temperature 99 F Pulse Rate 106 106 Respiratory 28 26 29 Rate Blood Pressure 131/104 172/117 (mmHg) O2 Sat by Pulse 93 94 Oximetry 09/04/16 09/04/16 09/04/16 04:54 05:00 05:30 Temperature Pulse Rate 84 79 Respiratory 23 28 30 Rate Blood Pressure 161/86 186/84 (mmHg) O2 Sat by Pulse 95 94 Oximetry 09/04/16 09/04/16 09/04/16 05:57 06:00 06:30 Temperature Pulse Rate 139 91 Respiratory 25 27 28 Rate Blood Pressure 179/89 175/95 (mmHg) O2 Sat by Pulse 94 95 Oximetry 09/04/16 09/04/16 09/04/16 07:00 07:30 08:00 Temperature 100.1 F Pulse Rate 110 106 88 Respiratory 29 23 26 Rate Blood Pressure 178/71 181/71 188/162 (mmHg) O2 Sat by Pulse 94 94 94 Oximetry 09/04/16 09/04/16 09/04/16 08:30 08:40 09:00 Temperature Pulse Rate 111 116 97 Respiratory 27 29 24 Rate Blood Pressure 180/97 163/92 (mmHg) O2 Sat by Pulse 93 93 94 Oximetry 09/04/16 09:30 Temperature Pulse Rate 81 Respiratory 23 Rate Blood Pressure 182/77 (mmHg) O2 Sat by Pulse 94 Oximetry Oxygen Devices in Use Now: High Flow Nasal Cannula - Vapotherm Appearance: Older female patient, restless behavior, in NAD Eyes: PERRLA Ears/Nose/Mouth/Throat: Clear Oropharnyx Neck: NL Appearance and Movements; NL JVP Respiratory: Symmetrical Chest Expansion and Respiratory Effort, Clear to Auscultation - diminished Cardiovascular: NL Sounds; No Murmurs; No JVD - irregular rate/rhythm Abdominal: NL Sounds; No Tenderness; No Distention Extremities: No Edema Skin: No Rash or Ulcers Neurological: - - alert, oriented to self Lines/Tubes/Other Access: Clean, Dry and Intact [place], Clean, Dry and Intact Peripheral IV Result Diagrams: 09/03/16 05:35 09/04/16 05:55 Additional Lab and Data: Laboratory Tests 09/02/16 09/03/16 09/03/16 18:30 05:35 05:35 Lactic Acid 4.4 H* 2.0 Troponin I 0.06 H* Microbiology and Other Data: Microbiology 09/03/16 04:20 Nasal Screen MRSA (PCR)([facility]) - Final Nasal Mrsa Positive Assess/Plan/Problems-Billing Assessment: Ms. Tovar is a 75 yo woman w/ severe COPD who presented w/ acute hypoxic respiratory failure and required NIPPV. - Patient Problems (1) Acute respiratory failure with hypoxia Code(s): J96.01 - ACUTE RESPIRATORY FAILURE WITH HYPOXIA Comment: Patient required reinitiation of BiPAP, which she did not tolerate. Switched overnight to Vapotherm, which she is tolerating much better. O2 sat trending 87-95% (2) Atrial fibrillation with RVR Code(s): I48.91 - UNSPECIFIED ATRIAL FIBRILLATION Comment: Continue rate control, will attempt to convert diltiazem gtt to PO today. Continue amiodarone PO, but unclear indication if a-fib is chronic (generally would be used for rhythm control). (3) COPD exacerbation Code(s): J44.1 - CHRONIC OBSTRUCTIVE PULMONARY DISEASE W (ACUTE) EXACERBATION Comment: Continue treatment w/ IV solu-medrol, nebulizers Discussed smoking cessation, continue PRN nicotine replacement therapies (4) Pneumonia Code(s): J18.9 - PNEUMONIA, UNSPECIFIED ORGANISM Comment: Continue ceftriaxone and azithromycin, day 2. Repeat portable CXR in AM. (5) Hypertension Code(s): I10 - ESSENTIAL (PRIMARY) HYPERTENSION Comment: BP significantly out of control. Stress/anxiety may play role. Continue oral diltiazem and captopril. Continue PO Toprol XL. 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 Anticipate LOS > 2 days.
[2016-09-04 09:58] LABS: BUN/Creatinine Ratio 29.2 (8-20); Calcium 9.2 mg/dL (8.6-10.3); EGFR African American 101.6 (>60); Magnesium 1.9 mg/dL (1.9-2.7); Potassium 3.3 mmol/L (3.5-5.0)
[2016-09-04] MEDS: Omeprazole CAP* 20 MG PO SCH ×2 (10:41→20:25)
[2016-09-04] MEDS: Captopril TAB* 12.5 MG PO SCH ×3 (10:41→20:29)
[2016-09-04] MEDS: Magnesium Oxide TAB* 400 MG PO SCH (10:41)
[2016-09-04] MEDS: Metoprolol Succinate XL TAB* 50 MG PO SCH (10:41)
[2016-09-04] MEDS ORDERED: NS 0.9% w/ 40 Meq KCL 1000 ML* 1,000 ML IV SCH (11:00)
[2016-09-04] MEDS ORDERED: Haloperidol INJ IV/IM* 5 MG/ML AMP IV SLOW PU PRN (17:15)
[2016-09-04] MEDS ORDERED: Haloperidol INJ IV/IM* 5 MG/ML AMP ONE (17:19)
[2016-09-04] MEDS ORDERED: NS 0.9% 250 ML* 250 ML ONE (18:20)
[2016-09-04] MEDS: Diltiazem TAB* 60 MG PO SCH (18:28)
[2016-09-04] MEDS: Donepezil TAB* 5 MG PO SCH (18:28)
[2016-09-04] MEDS: cefTRIAXone VIAL(*) 1,000 MG in NS 0.9% 50 ML* 50 ML IVPB SCH (18:47)
[2016-09-04] MEDS: Azithromycin IV(*) 500 MG in NS 0.9% 250 ML* 250 ML IVPB SCH (18:48)
[2016-09-04] MEDS: Atorvastatin* 10 MG TAB PO SCH (20:24)
[2016-09-04] MEDS: QUEtiapine TAB* 25 MG PO SCH (20:24)
[2016-09-04] MEDS: Venlafaxine EXT RELEASE CAP* 75 MG PO SCH (20:25)
[2016-09-05] MEDS: hydrALAZINE IV* 20 MG/ML VIAL IV PRN ×2 (02:03→07:02)
[2016-09-05] MEDS: methylPREDNISolone 125 MG* 2 ML VIAL IV SCH ×3 (03:46→20:55)
[2016-09-05] MEDS: Diltiazem TAB* 60 MG PO SCH ×4 (05:29→17:53)
[2016-09-05 05:42] LABS: Hematocrit 46 % (35-47); Hemoglobin 14.9 g/dl (12.0-16.0); Mean Corpuscular HGB Conc 33 g/dl (31-36); Mean Corpuscular Hemoglobin 30 pg (27-31); Mean Corpuscular Volume 93 fL (80-97); Mean Platelet Volume 12 um3 (7.4-10.4); Red Blood Count 4.94 10^6/ul (4.0-5.4); Red Cell Distribution Width 15 % (10.5-15); White Blood Count 15.4 10^3/ul (3.5-10.8)
[2016-09-05 05:45] LABS: Add Diff/Slide Review? Slide Review Added; Comments Flag Yes
[2016-09-05 05:57] LABS: BUN/Creatinine Ratio 26.2 (8-20); Calcium 9.1 mg/dL (8.6-10.3); EGFR African American 114.3 (>60); EGFR Non-African American 88.9 (>60); Potassium 4.2 mmol/L (3.5-5.0)
--- NOTE | 2016-09-05 08:08 | RAD ---
INDICATION: Pneumonia, follow-up. COMPARISON: Comparison is made with a prior study from September 02, 2016. TECHNIQUE: A portable view of the chest was obtained. FINDINGS: The heart is within normal limits in size. There is a focal infiltrate present at the right lung base which is progressed slightly from the prior exam. There is increased density which projects over the right hilum possibly representing hilar lymphadenopathy which is unchanged. IMPRESSION: RIGHT BASILAR INFILTRATE MOST CONSISTENT WITH PNEUMONIA DEMONSTRATING SLIGHT PROGRESSION, POSSIBLE RIGHT HILAR LYMPHADENOPATHY. RECOMMEND FOLLOW-UP CHEST X-RAYS TO RESOLUTION.
[2016-09-05] MEDS: Omeprazole CAP* 20 MG PO SCH ×2 (08:21→21:07)
[2016-09-05] MEDS: Captopril TAB* 12.5 MG PO SCH ×3 (08:25→21:07)
[2016-09-05] MEDS: Magnesium Oxide TAB* 400 MG PO SCH (08:25)
[2016-09-05] MEDS ORDERED: Metoprolol Succinate XL TAB* 50 MG PO SCH (09:00)
[2016-09-05] MEDS: Morphine INJ* 2 MG/ML 1 ML CARPUJECT IV PRN ×2 (09:23→14:00)
--- NOTE | 2016-09-05 09:35 | PN ---
Subjective Date of Service: 09/05/16 Interval History: Patient seen and examined at bedside. When asked if she was having chest pain or other discomfort, she states "No, I'm doing fine." She admits to being tired. She is able to tell me her name and that she is in the hospital. She has reported that it is August but is unaware of the year. She reports feeling fatigued after eating breakfast. The patient's sister is at bedside. She reports that the patient does wear home O2 but is unsure how much or how often. She reports that the patient was non- compliant with oxygen prior to admission. Telemetry: Atrial fibrillation 90s-100s Family History: Unchanged from Admission Social History: Unchanged from Admission Past Medical History: Unchanged from Admission Objective Active Medications: Acetaminophen (Tylenol Tab*) 650 mg PO Q4H PRN PRN Reason: PAIN OR TEMPERATURE Albuterol (Ventolin 2.5 Mg/3 Ml Neb.Gianna*) 2.5 mg INH Q2H PRN PRN Reason: SOB/WHEEZING Atorvastatin Calcium (Lipitor*) 10 mg PO BEDTIME [facility] Last Admin: 09/04/16 20:24 Dose: 10 mg Captopril (Capoten Tab*) 12.5 mg PO TID [facility] Last Admin: 09/05/16 08:25 Dose: 12.5 mg Diltiazem HCl (Cardizem Tab*) 60 mg PO Q6HR [facility] Last Admin: 09/05/16 05:29 Dose: 60 mg Diphenhydramine HCl (Benadryl Iv*) 25 mg IV ONCE PRN PRN Reason: RESTLESSNESS Last Admin: 09/04/16 16:20 Dose: 25 mg Donepezil HCl (Aricept Tab*) 5 mg PO QPM [facility] Last Admin: 09/04/16 18:28 Dose: 5 mg Haloperidol Lactate (Haldol Inj Iv/Im*) 2.5 mg IV SLOW PU Q6H PRN PRN Reason: AGITATION Hydralazine HCl (Apresoline Iv*) 10 mg IV Q4H PRN PRN Reason: Systolic >170 Last Admin: 09/05/16 07:02 Dose: 10 mg Hydromorphone HCl (Dilaudid Iv*) 0.5 mg IV Q2H PRN PRN Reason: PAIN Last Admin: 09/03/16 16:50 Dose: 0.5 mg Ceftriaxone Sodium 1,000 mg/ (Sodium Chloride) 50 mls @ 200 mls/hr IVPB Q24H [facility] Last Admin: 09/04/16 18:47 Dose: 200 mls/hr Azithromycin 500 mg/ Sodium (Chloride) 250 mls @ 250 mls/hr IVPB Q24H [facility] Last Admin: 09/04/16 18:48 Dose: 250 mls/hr Potassium Chloride/Sodium Chloride (Ns 0.9% W/ 40 Meq Kcl 1000 Ml*) 1,000 mls @ 100 mls/hr IV PER RATE [facility] Last Admin: 09/04/16 12:07 Dose: 100 mls/hr Ipratropium [place] (Atrovent 0.5 Mg Neb.Gianna*) 0.5 mg INH Q6H PRN PRN Reason: SOB/WHEEZING Magnesium Oxide (Magox 400 Tab*) 400 mg PO DAILY [facility] Last Admin: 09/05/16 08:25 Dose: 400 mg Methylprednisolone Sodium Succinate (Solu-Medrol*) 60 mg IV Q8H [facility] Last Admin: 09/05/16 03:46 Dose: 60 mg Metoprolol Succinate (Toprol Xl Tab*) 75 mg PO QAM [facility] Last Admin: 09/05/16 08:25 Dose: 75 mg Morphine Sulfate (Morphine Inj (Syringe)*) 2 mg IV Q3H PRN PRN Reason: PAIN - MODERATE Last Admin: 09/05/16 09:23 Dose: 2 mg Omeprazole (Prilosec Cap*) 20 mg PO BID [facility] Last Admin: 09/05/16 08:21 Dose: 20 mg Quetiapine Fumarate (Seroquel Tab*) 25 mg PO BEDTIME [facility] Last Admin: 09/04/16 20:24 Dose: 25 mg Venlafaxine HCl (Effexor Xr Cap*) 150 mg PO BEDTIME [facility] Last Admin: 09/04/16 20:25 Dose: 150 mg Vital Signs 09/04/16 09/04/16 09/04/16 10:00 10:30 11:00 Temperature Pulse Rate 84 90 101 Respiratory 24 25 24 Rate Blood Pressure 178/77 160/78 149/85 (mmHg) O2 Sat by Pulse 94 97 87 Oximetry 09/04/16 09/04/16 09/04/16 12:00 12:08 13:00 Temperature 98.0 F Pulse Rate 62 80 26 Respiratory 22 27 26 Rate Blood Pressure 162/78 173/93 (mmHg) O2 Sat by Pulse 98 93 87 Oximetry 09/04/16 09/04/16 09/04/16 13:20 13:21 14:00 Temperature Pulse Rate 47 Respiratory 28 28 28 Rate Blood Pressure 195/171 (mmHg) O2 Sat by Pulse 62 Oximetry 09/04/16 09/04/16 09/04/16 14:13 15:00 16:00 Temperature 98.2 F Pulse Rate 70 117 Respiratory 21 27 26 Rate Blood Pressure 181/91 176/83 152/133 (mmHg) O2 Sat by Pulse 92 99 Oximetry 09/04/16 09/04/16 09/04/16 16:21 17:00 18:00 Temperature Pulse Rate 97 55 Respiratory 26 17 26 Rate Blood Pressure 141/114 166/91 (mmHg) O2 Sat by Pulse 96 91 Oximetry 09/04/16 09/04/16 09/04/16 19:00 19:21 20:00 Temperature Pulse Rate 94 86 85 Respiratory 19 29 26 Rate Blood Pressure 178/150 166/97 (mmHg) O2 Sat by Pulse 97 96 94 Oximetry 09/04/16 09/04/16 09/04/16 20:08 20:16 21:00 Temperature 99.5 F Pulse Rate 92 86 Respiratory 27 24 Rate Blood Pressure 176/110 170/78 (mmHg) O2 Sat by Pulse 94 94 Oximetry 09/04/16 09/04/16 09/04/16 22:00 23:00 23:03 Temperature Pulse Rate 77 77 80 Respiratory 21 21 20 Rate Blood Pressure 139/79 153/76 (mmHg) O2 Sat by Pulse 94 94 94 Oximetry 09/04/16 09/05/16 09/05/16 23:52 00:00 00:01 Temperature 99 F Pulse Rate 77 76 84 Respiratory 24 24 23 Rate Blood Pressure 172/77 (mmHg) O2 Sat by Pulse 94 94 94 Oximetry 09/05/16 09/05/16 09/05/16 01:00 02:00 02:02 Temperature Pulse Rate 74 101 94 Respiratory 25 25 27 Rate Blood Pressure 166/82 169/116 179/91 (mmHg) O2 Sat by Pulse 94 95 94 Oximetry 09/05/16 09/05/16 09/05/16 02:04 02:31 03:00 Temperature Pulse Rate 49 96 76 Respiratory 26 28 22 Rate Blood Pressure 178/90 145/71 166/78 (mmHg) O2 Sat by Pulse 94 94 94 Oximetry 09/05/16 09/05/16 09/05/16 03:56 04:00 05:00 Temperature 98.9 F Pulse Rate 56 56 Respiratory 27 25 Rate Blood Pressure 156/80 177/86 (mmHg) O2 Sat by Pulse 94 95 Oximetry 09/05/16 09/05/16 09/05/16 06:00 06:29 06:50 Temperature Pulse Rate 64 122 88 Respiratory 30 25 25 Rate Blood Pressure 150/119 164/114 155/78 (mmHg) O2 Sat by Pulse 95 95 94 Oximetry 09/05/16 09/05/16 09/05/16 07:00 08:00 09:23 Temperature 97.6 F Pulse Rate 155 97 Respiratory 25 26 22 Rate Blood Pressure 193/80 150/94 (mmHg) O2 Sat by Pulse 95 94 Oximetry Oxygen Devices in Use Now: High Flow Nasal Cannula - Vapotherm 40L, 30% FiO2 Appearance: Older female, sitting up in bed, appears tired, in NAD Eyes: PERRLA Ears/Nose/Mouth/Throat: Clear Oropharnyx Neck: NL Appearance and Movements; NL JVP Respiratory: Symmetrical Chest Expansion and Respiratory Effort, Clear to Auscultation - diminished Cardiovascular: - - S1,S2, irregular, tachycardic Abdominal: NL Sounds; No Tenderness; No Distention Extremities: No Edema, No Clubbing, Cyanosis Skin: No Rash or Ulcers Neurological: - - oriented to self, place (hospital), month, family Lines/Tubes/Other Access: Clean, Dry and Intact [place], Clean, Dry and Intact Peripheral IV Nutrition: Taking PO's Result Diagrams: 09/05/16 05:30 09/05/16 05:30 Additional Lab and Data: Laboratory Tests 09/02/16 09/03/16 09/03/16 18:30 05:35 05:35 Lactic Acid 4.4 H* 2.0 Troponin I 0.06 H* Microbiology and Other Data: Microbiology 09/03/16 04:20 Nasal Screen MRSA (PCR)([facility]) - Final Nasal Mrsa Positive Assess/Plan/Problems-Billing Assessment: Ms. Tovar is a 75 yo woman w/ severe COPD who presented w/ acute hypoxic respiratory failure and required NIPPV. - Patient Problems (1) Sepsis Comment: Afebrile, leukocytosis resolving slowly. Patient meets for sepsis with a qSOFA score of 2 for tachypnea and AMS, as well as MARIAH. Secondary to community acquired pneumonia, being treated with ceftriaxone and azithromycin. (2) Acute respiratory failure with hypoxia Code(s): J96.01 - ACUTE RESPIRATORY FAILURE WITH HYPOXIA Comment: Continue Vapotherm, attempt to wean down settings. Patient did not tolerate BiPAP well. O2 sat trending 87-95% (3) Atrial fibrillation with RVR Code(s): I48.91 - UNSPECIFIED ATRIAL FIBRILLATION Comment: Better controlled this AM, with HR 90s-100s. Continue rate control with PO diltiazem and Toprol XL. (4) COPD exacerbation Code(s): J44.1 - CHRONIC OBSTRUCTIVE PULMONARY DISEASE W (ACUTE) EXACERBATION Comment: Continue treatment w/ IV solu-medrol, nebulizers Discussed smoking cessation, continue PRN nicotine replacement therapies (5) Pneumonia Code(s): J18.9 - PNEUMONIA, UNSPECIFIED ORGANISM Comment: Continue ceftriaxone and azithromycin, day 4. Portable CXR this AM shows right basilar infiltrate with slight progression, most consistent with pneumonia and possible right hilar lymphadenopathy that is roughly unchanged from previous XR. (6) Hypertension Code(s): I10 - ESSENTIAL (PRIMARY) HYPERTENSION Comment: SBP 130s-180s. ? if always accuracy, as patient is often restless. Stress/ anxiety may also play role. Check manual BP q4 to compare to electronic device Continue oral diltiazem and captopril. Continue PO Toprol XL, dose increased to 50 mg BID. Continue PRN hydralazine. (7) Acute kidney injury Code(s): N17.9 - ACUTE KIDNEY FAILURE, UNSPECIFIED Comment: Now resolved. Likely secondary to volume depletion and sepsis. (8) Elevated troponin Code(s): R74.8 - ABNORMAL LEVELS OF OTHER SERUM ENZYMES Comment: Patient continues to deny chest pain. Suspect secondary to demand ischemia from sepsis, pneumonia, hypoxic respiratory failure, and COPD. 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 Anticipate LOS > 2 days.
[2016-09-05] MEDS: Donepezil TAB* 5 MG PO SCH (17:52)
[2016-09-05] MEDS: cefTRIAXone VIAL(*) 1,000 MG in NS 0.9% 50 ML* 50 ML IVPB SCH (17:52)
[2016-09-05] MEDS: Azithromycin IV(*) 500 MG in NS 0.9% 250 ML* 250 ML IVPB SCH (18:31)
[2016-09-05] MEDS: Atorvastatin* 10 MG TAB PO SCH (21:07)
[2016-09-05] MEDS: Metoprolol Succinate XL TAB* 50 MG PO SCH (21:07)
[2016-09-05] MEDS: Venlafaxine EXT RELEASE CAP* 75 MG PO SCH (21:08)
[2016-09-05] MEDS: QUEtiapine TAB* 25 MG PO SCH (21:08)
[2016-09-06] MEDS: Diltiazem TAB* 60 MG PO SCH ×4 (00:49→17:27)
[2016-09-06] MEDS: methylPREDNISolone 125 MG* 2 ML VIAL IV SCH ×2 (04:42→21:50)
[2016-09-06 07:07] LABS: Hematocrit 46 % (35-47); Hemoglobin 15.2 g/dl (12.0-16.0); Mean Corpuscular HGB Conc 33 g/dl (31-36); Mean Corpuscular Hemoglobin 31 pg (27-31); Mean Corpuscular Volume 93 fL (80-97); Mean Platelet Volume 12 um3 (7.4-10.4); Red Blood Count 4.94 10^6/ul (4.0-5.4); Red Cell Distribution Width 15 % (10.5-15); White Blood Count 14.7 10^3/ul (3.5-10.8)
[2016-09-06 07:21] LABS: BUN/Creatinine Ratio 29.3 (8-20); Calcium 9.4 mg/dL (8.6-10.3); EGFR African American 130.3 (>60); EGFR Non-African American 101.3 (>60); Potassium 3.5 mmol/L (3.5-5.0)
[2016-09-06 07:23] LABS: Add Diff/Slide Review? Slide Review Added; Comments Flag Yes
[2016-09-06] MEDS: Magnesium Oxide TAB* 400 MG PO SCH (07:36)
[2016-09-06] MEDS: Omeprazole CAP* 20 MG PO SCH ×2 (07:36→21:41)
[2016-09-06] MEDS: Captopril TAB* 12.5 MG PO SCH ×3 (07:37→21:41)
[2016-09-06] MEDS: Metoprolol Succinate XL TAB* 50 MG PO SCH ×2 (07:37→21:41)
--- NOTE | 2016-09-06 10:20 | PN ---
Subjective Date of Service: 09/06/16 Interval History: This is a 75 yo female admitted with CAP and COPD exacerbation. Admitted to ICU for respiratory failure. She is DNR/DNI. Trialed BiPAP which she didn't tolerate. She has been using high flow, discontinued yesterday and titrated down to 7L via NC today. She offers no new complaints. Denies dyspnea at rest. Occasional cough. Objective Active Medications: Acetaminophen (Tylenol Tab*) 650 mg PO Q4H PRN PRN Reason: PAIN OR TEMPERATURE Albuterol (Ventolin 2.5 Mg/3 Ml Neb.Gianna*) 2.5 mg INH Q2H PRN PRN Reason: SOB/WHEEZING Atorvastatin Calcium (Lipitor*) 10 mg PO BEDTIME [facility] Last Admin: 09/05/16 21:07 Dose: 10 mg Captopril (Capoten Tab*) 12.5 mg PO TID [facility] Last Admin: 09/06/16 07:37 Dose: 12.5 mg Diltiazem HCl (Cardizem Tab*) 60 mg PO Q6HR [facility] Last Admin: 09/06/16 06:09 Dose: 60 mg Diphenhydramine HCl (Benadryl Iv*) 25 mg IV ONCE PRN PRN Reason: RESTLESSNESS Last Admin: 09/04/16 16:20 Dose: 25 mg Donepezil HCl (Aricept Tab*) 5 mg PO QPM [facility] Last Admin: 09/05/16 17:52 Dose: 5 mg Haloperidol Lactate (Haldol Inj Iv/Im*) 2.5 mg IV SLOW PU Q6H PRN PRN Reason: AGITATION Hydralazine HCl (Apresoline Iv*) 10 mg IV Q4H PRN PRN Reason: Systolic >170 Last Admin: 09/05/16 07:02 Dose: 10 mg Hydromorphone HCl (Dilaudid Iv*) 0.5 mg IV Q2H PRN PRN Reason: PAIN Last Admin: 09/03/16 16:50 Dose: 0.5 mg Ceftriaxone Sodium 1,000 mg/ (Sodium Chloride) 50 mls @ 200 mls/hr IVPB Q24H [facility] Last Admin: 09/05/16 17:52 Dose: 200 mls/hr Azithromycin 500 mg/ Sodium (Chloride) 250 mls @ 250 mls/hr IVPB Q24H [facility] Last Admin: 09/05/16 18:31 Dose: 250 mls/hr Ipratropium [place] (Atrovent 0.5 Mg Neb.Gianna*) 0.5 mg INH Q6H PRN PRN Reason: SOB/WHEEZING Magnesium Oxide (Magox 400 Tab*) 400 mg PO DAILY [facility] Last Admin: 09/06/16 07:36 Dose: 400 mg Methylprednisolone Sodium Succinate (Solu-Medrol*) 60 mg IV Q12H [facility] Metoprolol Succinate (Toprol Xl Tab*) 50 mg PO BID [facility] Last Admin: 09/06/16 07:37 Dose: 50 mg Morphine Sulfate (Morphine Inj (Syringe)*) 2 mg IV Q3H PRN PRN Reason: PAIN - MODERATE Last Admin: 09/05/16 14:00 Dose: 2 mg Omeprazole (Prilosec Cap*) 20 mg PO BID [facility] Last Admin: 09/06/16 07:36 Dose: 20 mg Quetiapine Fumarate (Seroquel Tab*) 25 mg PO BEDTIME [facility] Last Admin: 09/05/16 21:08 Dose: 25 mg Venlafaxine HCl (Effexor Xr Cap*) 150 mg PO BEDTIME [facility] Last Admin: 09/05/16 21:08 Dose: 150 mg Vital Signs: Temp Pulse Resp BP Pulse Ox 97.8 F 74 25 145/73 94 09/06/16 07:58 09/06/16 09:00 09/06/16 09:00 09/06/16 09:00 09/06/16 09:00 Oxygen Devices in Use Now: Nasal Cannula Appearance: Alert, pleasant, in NAD. Accompanied by her sister Respiratory: Symmetrical Chest Expansion and Respiratory Effort, - - little air exchange, no wheezing or rhonchi noted Cardiovascular: No Edema, - - irreg rhythm Extremities: No Edema Skin: No Rash or Ulcers Neurological: - Result Diagrams: 09/06/16 06:05 09/06/16 06:05 Additional Lab and Data: Laboratory Tests 09/02/16 09/03/16 09/03/16 18:30 05:35 05:35 Lactic Acid 4.4 H* 2.0 Troponin I 0.06 H* Microbiology and Other Data: Microbiology 09/03/16 04:20 Nasal Screen MRSA (PCR)(ALEXANDER) - Final Nasal Mrsa Positive Diagnostic Imaging: CXR 09/02 - R basilar infiltrate, ?R hilar LAD CXR 09/05 - slightly worsening R basilar infiltrate, ?R hilar infiltrate Assess/Plan/Problems-Billing Assessment: Ms. Tovar is a 75 yo woman w/ severe COPD who presented w/ acute hypoxic respiratory failure and required NIPPV. - Patient Problems (1) Acute respiratory failure with hypoxia Comment: Secondary to PNA and COPD exacerbation Now titrated off of vaportherm, maintaining appropriate saturations at ~7L via NC and can likely be titrated down further Can transfer to medical floor at this time (2) COPD exacerbation Comment: Continue treatment w/ IV solu-medrol, nebulizers Will titrate down solumedrol and likely transition to oral prednisone tomorrow Restart Dulera/Spiriva Continue PRN nicotine replacement therapies Encourage smoking cessation (3) PNA (pneumonia) Comment: RLL infiltrate Afebrile cont tx with Ceftriaxone/Azithro ?R hilar LAD assoc with RLL PNA on CXR, recommend repeat imaging to ensure resolution, may need CT to eval for possible mass (4) Elevated troponin Comment: No evidence of ACS, no c/o CP Suspect secondary to demand ischemia from sepsis, pneumonia, hypoxic respiratory failure, and COPD. (5) Acute kidney injury Comment: Resolved Likely secondary to volume depletion and sepsis. (6) Dementia Comment: Intermittently confused No behavioral concerns (7) DNR (do not resuscitate) Comment: DNR/DNI Trial BiPAP Status and Disposition: Inpatient admission. Transfer to medical floor from ICU care. Anticipate an additional 2-3 days of a hospital stay.
[2016-09-06] MEDS ORDERED: Spiriva Inhaler DEVICE* 1 EACH DEVICE INH ONE (11:00)
[2016-09-06] MEDS: Tiotropium CAP.INH* CAP.INH/18 MCG (USE ORDER SET !) INH SCH (11:07)
[2016-09-06] MEDS: Morphine INJ* 2 MG/ML 1 ML CARPUJECT IV PRN (16:01)
[2016-09-06] MEDS: HYDROmorphone INJ* 1 MG/ML CARPUJECT SYRINGE IV PRN (16:30)
[2016-09-06] MEDS: Donepezil TAB* 5 MG PO SCH (17:27)
[2016-09-06] MEDS: cefTRIAXone VIAL(*) 1,000 MG in NS 0.9% 50 ML* 50 ML IVPB SCH (17:29)
[2016-09-06] MEDS: Azithromycin IV(*) 500 MG in NS 0.9% 250 ML* 250 ML IVPB SCH (18:14)
[2016-09-06] MEDS: Mometasone/Formoter 200/5 MDI INH SCH (20:52)
[2016-09-06] MEDS: Atorvastatin* 10 MG TAB PO SCH (21:40)
[2016-09-06] MEDS: QUEtiapine TAB* 25 MG PO SCH (21:42)
[2016-09-06] MEDS: Venlafaxine EXT RELEASE CAP* 75 MG PO SCH (21:42)
[2016-09-07] MEDS: Diltiazem TAB* 60 MG PO SCH ×4 (01:04→17:33)
[2016-09-07] MEDS: Magnesium Oxide TAB* 400 MG PO SCH (08:16)
[2016-09-07] MEDS: Captopril TAB* 12.5 MG PO SCH ×3 (08:16→21:27)
[2016-09-07] MEDS: Omeprazole CAP* 20 MG PO SCH ×2 (08:16→21:27)
[2016-09-07] MEDS: Metoprolol Succinate XL TAB* 50 MG PO SCH ×2 (08:16→21:28)
[2016-09-07] MEDS: methylPREDNISolone 125 MG* 2 ML VIAL IV SCH (08:17)
[2016-09-07] MEDS: Mometasone/Formoter 200/5 MDI INH SCH ×2 (08:47→20:47)
[2016-09-07] MEDS: Tiotropium CAP.INH* CAP.INH/18 MCG (USE ORDER SET !) INH SCH (08:47)
[2016-09-07] MEDS: HYDROmorphone INJ* 1 MG/ML CARPUJECT SYRINGE IV PRN (11:07)
--- NOTE | 2016-09-07 12:40 | PN ---
Subjective Date of Service: 09/07/16 Interval History: Patient offers no acute complaints. She was able to get from bed to a chair today. She was lightheaded with that, but not dyspneic. No CP. Objective Active Medications: Acetaminophen (Tylenol Tab*) 650 mg PO Q4H PRN PRN Reason: PAIN OR TEMPERATURE Albuterol (Ventolin 2.5 Mg/3 Ml Neb.Gianna*) 2.5 mg INH Q2H PRN PRN Reason: SOB/WHEEZING Atorvastatin Calcium (Lipitor*) 10 mg PO BEDTIME [facility] Last Admin: 09/06/16 21:40 Dose: 10 mg Captopril (Capoten Tab*) 12.5 mg PO TID [facility] Last Admin: 09/07/16 08:16 Dose: 12.5 mg Diltiazem HCl (Cardizem Tab*) 60 mg PO Q6HR [facility] Last Admin: 09/07/16 12:10 Dose: 60 mg Diphenhydramine HCl (Benadryl Iv*) 25 mg IV ONCE PRN PRN Reason: RESTLESSNESS Last Admin: 09/04/16 16:20 Dose: 25 mg Donepezil HCl (Aricept Tab*) 5 mg PO QPM [facility] Last Admin: 09/06/16 17:27 Dose: 5 mg Haloperidol Lactate (Haldol Inj Iv/Im*) 2.5 mg IV SLOW PU Q6H PRN PRN Reason: AGITATION Hydralazine HCl (Apresoline Iv*) 10 mg IV Q4H PRN PRN Reason: Systolic >170 Last Admin: 09/05/16 07:02 Dose: 10 mg Hydromorphone HCl (Dilaudid Iv*) 0.5 mg IV Q2H PRN PRN Reason: PAIN Last Admin: 09/07/16 11:07 Dose: 0.5 mg Ceftriaxone Sodium 1,000 mg/ (Sodium Chloride) 50 mls @ 200 mls/hr IVPB Q24H [facility] Last Admin: 09/06/16 17:29 Dose: 200 mls/hr Azithromycin 500 mg/ Sodium (Chloride) 250 mls @ 250 mls/hr IVPB Q24H [facility] Last Admin: 09/06/16 18:14 Dose: 250 mls/hr Ipratropium [place] (Atrovent 0.5 Mg Neb.Gianna*) 0.5 mg INH Q6H PRN PRN Reason: SOB/WHEEZING Magnesium Oxide (Magox 400 Tab*) 400 mg PO DAILY [facility] Last Admin: 09/07/16 08:16 Dose: 400 mg Metoprolol Succinate (Toprol Xl Tab*) 50 mg PO BID [facility] Last Admin: 09/07/16 08:16 Dose: 50 mg Mometasone Furoate/Formoterol Fumar (Dulera 200/5 Mdi*) 2 puff INH BID [facility] Last Admin: 09/07/16 08:47 Dose: 2 puff Montelukast Sodium (Singulair Tab*) 10 mg PO QAM [facility] Omeprazole (Prilosec Cap*) 20 mg PO BID [facility] Last Admin: 09/07/16 08:16 Dose: 20 mg Oxycodone HCl (Oxycontin(*)) 15 mg PO BID [facility] Oxycodone HCl (Roxycodone Tab*) 5 mg PO TID [facility] Quetiapine Fumarate (Seroquel Tab*) 25 mg PO BEDTIME [facility] Last Admin: 09/06/16 21:42 Dose: 25 mg Tiotropium [place] (Spiriva Cap.Inh*) 1 cap INH DAILY [facility] Last Admin: 09/07/16 08:47 Dose: 1 inh Venlafaxine HCl (Effexor Xr Cap*) 150 mg PO BEDTIME [facility] Last Admin: 09/06/16 21:42 Dose: 150 mg Vital Signs: Temp Pulse Resp BP Pulse Ox 97.4 F 85 20 162/78 94 09/07/16 07:44 09/07/16 12:09 09/07/16 12:09 09/07/16 12:09 09/07/16 12:09 Oxygen Devices in Use Now: Nasal Cannula Appearance: Elderly and chronically ill appearing female in NAD Neck: NL Appearance and Movements; NL JVP Respiratory: Symmetrical Chest Expansion and Respiratory Effort, - - little air exchange, but seemily improved over yesterday, no wheeze or rhonchi Cardiovascular: RRR Extremities: No Edema Skin: No Rash or Ulcers Neurological: Alert and Oriented x 3 Result Diagrams: 09/06/16 06:05 09/06/16 06:05 Additional Lab and Data: Laboratory Tests 09/02/16 09/03/16 09/03/16 18:30 05:35 05:35 Lactic Acid 4.4 H* 2.0 Troponin I 0.06 H* Microbiology and Other Data: Microbiology 09/03/16 04:20 Nasal Screen MRSA (PCR)(ALEXANDER) - Final Nasal Mrsa Positive Diagnostic Imaging: CXR 09/02 - R basilar infiltrate, ?R hilar LAD CXR 09/05 - slightly worsening R basilar infiltrate, ?R hilar infiltrate Assess/Plan/Problems-Billing Assessment: Ms. Tovar is a 75 yo woman w/ severe COPD who presented w/ acute hypoxic respiratory failure and required NIPPV. - Patient Problems (1) Acute respiratory failure with hypoxia Comment: Secondary to PNA and COPD exacerbation Now titrated off of vapotherm, maintaining appropriate saturations at 6L via NC and can likely be titrated down further Moved to medical floor yesterday (2) COPD exacerbation Comment: Continue treatment w/ corticosteroids, nebulizers Transition to oral prednisone Restarted Dulera/Spiriva Continue PRN nicotine replacement therapies Encourage smoking cessation (3) PNA (pneumonia) Comment: RLL infiltrate Afebrile cont tx with Ceftriaxone/Azithro ?R hilar LAD assoc with RLL PNA on CXR, recommend repeat imaging to ensure resolution, may need CT to eval for possible mass (4) Elevated troponin Comment: No evidence of ACS, no c/o CP Suspect secondary to demand ischemia from sepsis, pneumonia, hypoxic respiratory failure, and COPD. (5) Acute kidney injury Comment: Resolved Likely secondary to volume depletion and sepsis. (6) Dementia Comment: Intermittently confused No behavioral concerns (7) DNR (do not resuscitate) Comment: DNR/DNI Trial BiPAP Status and Disposition: Inpatient admission. Anticipate dc in 1-2. Will require NGA.
[2016-09-07] MEDS: oxyCODONE SR TAB(*) 10 MG TAB.SR PO SCH ×2 (13:34→21:28)
[2016-09-07] MEDS: oxyCODONE TAB* 5 MG TAB PO SCH ×2 (13:34→21:29)
[2016-09-07] MEDS: cefTRIAXone VIAL(*) 1,000 MG in NS 0.9% 50 ML* 50 ML IVPB SCH (17:33)
[2016-09-07] MEDS: Donepezil TAB* 5 MG PO SCH (17:33)
[2016-09-07] MEDS: Azithromycin IV(*) 500 MG in NS 0.9% 250 ML* 250 ML IVPB SCH (18:08)
[2016-09-07] MEDS: Atorvastatin* 10 MG TAB PO SCH (21:26)
[2016-09-07] MEDS: Venlafaxine EXT RELEASE CAP* 75 MG PO SCH (21:27)
[2016-09-07] MEDS: QUEtiapine TAB* 25 MG PO SCH (21:29)
[2016-09-08] MEDS: Diltiazem TAB* 60 MG PO SCH ×4 (01:08→18:02)
[2016-09-08] MEDS: predniSONE TAB* 20 MG PO SCH (08:59)
[2016-09-08] MEDS: Metoprolol Succinate XL TAB* 50 MG PO SCH ×2 (09:00→20:45)
[2016-09-08] MEDS: Montelukast Sodium TAB* 10 MG PO SCH (09:01)
[2016-09-08] MEDS: Magnesium Oxide TAB* 400 MG PO SCH (09:01)
[2016-09-08] MEDS: Omeprazole CAP* 20 MG PO SCH ×2 (09:01→20:45)
[2016-09-08] MEDS: Captopril TAB* 12.5 MG PO SCH ×3 (09:01→20:44)
[2016-09-08] MEDS: oxyCODONE SR TAB(*) 10 MG TAB.SR PO SCH ×2 (09:02→20:46)
[2016-09-08] MEDS: oxyCODONE TAB* 5 MG TAB PO SCH ×3 (09:03→20:45)
[2016-09-08] MEDS: Mometasone/Formoter 200/5 MDI INH SCH ×2 (09:40→19:56)
[2016-09-08] MEDS: Tiotropium CAP.INH* CAP.INH/18 MCG (USE ORDER SET !) INH SCH (09:40)
--- NOTE | 2016-09-08 16:31 | PN ---
Subjective Date of Service: 09/08/16 Interval History: Patient offers no acute complaints today. She reports minimal dyspnea. Her supp O2 was increased to 8L overnight as she was mildly hypoxic. Objective Active Medications: Acetaminophen (Tylenol Tab*) 650 mg PO Q4H PRN PRN Reason: PAIN OR TEMPERATURE Albuterol (Ventolin 2.5 Mg/3 Ml Neb.Gianna*) 2.5 mg INH Q2H PRN PRN Reason: SOB/WHEEZING Atorvastatin Calcium (Lipitor*) 10 mg PO BEDTIME [facility] Last Admin: 09/07/16 21:26 Dose: 10 mg Captopril (Capoten Tab*) 12.5 mg PO TID [facility] Last Admin: 09/08/16 14:44 Dose: 12.5 mg Diltiazem HCl (Cardizem Tab*) 60 mg PO Q6HR [facility] Last Admin: 09/08/16 11:27 Dose: 60 mg Diphenhydramine HCl (Benadryl Iv*) 25 mg IV ONCE PRN PRN Reason: RESTLESSNESS Last Admin: 09/04/16 16:20 Dose: 25 mg Donepezil HCl (Aricept Tab*) 5 mg PO QPM [facility] Last Admin: 09/07/16 17:33 Dose: 5 mg Haloperidol Lactate (Haldol Inj Iv/Im*) 2.5 mg IV SLOW PU Q6H PRN PRN Reason: AGITATION Hydralazine HCl (Apresoline Iv*) 10 mg IV Q4H PRN PRN Reason: Systolic >170 Last Admin: 09/05/16 07:02 Dose: 10 mg Hydromorphone HCl (Dilaudid Iv*) 0.5 mg IV Q2H PRN PRN Reason: PAIN Last Admin: 09/07/16 11:07 Dose: 0.5 mg Ceftriaxone Sodium 1,000 mg/ (Sodium Chloride) 50 mls @ 200 mls/hr IVPB Q24H [facility] Last Admin: 09/07/16 17:33 Dose: 200 mls/hr Azithromycin 500 mg/ Sodium (Chloride) 250 mls @ 250 mls/hr IVPB Q24H [facility] Last Admin: 09/07/16 18:08 Dose: 250 mls/hr Ipratropium [place] (Atrovent 0.5 Mg Neb.Gianna*) 0.5 mg INH Q6H PRN PRN Reason: SOB/WHEEZING Magnesium Oxide (Magox 400 Tab*) 400 mg PO DAILY [facility] Last Admin: 09/08/16 09:01 Dose: 400 mg Metoprolol Succinate (Toprol Xl Tab*) 50 mg PO BID [facility] Last Admin: 09/08/16 09:00 Dose: 50 mg Mometasone Furoate/Formoterol Fumar (Dulera 200/5 Mdi*) 2 puff INH BID [facility] Last Admin: 09/08/16 09:40 Dose: 2 puff Montelukast Sodium (Singulair Tab*) 10 mg PO QAM [facility] Last Admin: 09/08/16 09:01 Dose: 10 mg Omeprazole (Prilosec Cap*) 20 mg PO BID [facility] Last Admin: 09/08/16 09:01 Dose: 20 mg Oxycodone HCl (Oxycontin(*)) 10 mg PO BID [facility] Last Admin: 09/08/16 09:02 Dose: 10 mg Oxycodone HCl (Roxycodone Tab*) 5 mg PO TID [facility] Last Admin: 09/08/16 14:43 Dose: 5 mg Prednisone (Deltasone Tab*) 60 mg PO DAILY [facility] Last Admin: 09/08/16 08:59 Dose: 60 mg Quetiapine Fumarate (Seroquel Tab*) 25 mg PO BEDTIME [facility] Last Admin: 09/07/16 21:29 Dose: 25 mg Tiotropium [place] (Spiriva Cap.Inh*) 1 cap INH DAILY [facility] Last Admin: 09/08/16 09:40 Dose: 1 inh Venlafaxine HCl (Effexor Xr Cap*) 150 mg PO BEDTIME [facility] Last Admin: 09/07/16 21:27 Dose: 150 mg Vital Signs: Temp Pulse Resp BP Pulse Ox 97.5 F 72 16 177/86 94 09/07/16 23:53 09/08/16 09:43 09/08/16 14:43 09/08/16 08:19 09/08/16 09:43 Oxygen Devices in Use Now: Nasal Cannula Appearance: Elderly, frail female in NAD. Accompanied by multiple family members Neck: NL Appearance and Movements; NL JVP Respiratory: Symmetrical Chest Expansion and Respiratory Effort, - - reduced breath sounds, no wheezing or rhonchi Cardiovascular: NL Sounds; No Murmurs; No JVD, RRR Abdominal: NL Sounds; No Tenderness; No Distention Extremities: No Edema Skin: No Rash or Ulcers Neurological: - - alert, limited short term memory Result Diagrams: 09/06/16 06:05 09/06/16 06:05 Additional Lab and Data: Laboratory Tests 09/02/16 09/03/16 09/03/16 18:30 05:35 05:35 Lactic Acid 4.4 H* 2.0 Troponin I 0.06 H* Microbiology and Other Data: Microbiology 09/03/16 04:20 Nasal Screen MRSA (PCR)(ALEXANDER) - Final Nasal Mrsa Positive Diagnostic Imaging: CXR 09/02 - R basilar infiltrate, ?R hilar LAD CXR 09/05 - slightly worsening R basilar infiltrate, ?R hilar infiltrate Assess/Plan/Problems-Billing Assessment: Ms. Tovar is a 75 yo woman w/ severe COPD who presented w/ acute hypoxic respiratory failure and required NIPPV. - Patient Problems (1) Acute respiratory failure with hypoxia Comment: Secondary to PNA and COPD exacerbation Still requires rather high rates of supp O2 but seems to be tolerating it well and offers no complaints of cough or dyspnea (2) COPD exacerbation Comment: Continue treatment w/ corticosteroids, nebulizers Transitioned to oral prednisone Restarted Dulera/Spiriva Continue PRN nicotine replacement therapies Encourage smoking cessation (3) PNA (pneumonia) Comment: RLL infiltrate Afebrile cont tx with Ceftriaxone/Azithro ?R hilar LAD assoc with RLL PNA on CXR, recommend repeat imaging to ensure resolution, may need CT to eval for possible mass (4) Elevated troponin Comment: No evidence of ACS, no c/o CP Suspect secondary to demand ischemia from sepsis, pneumonia, hypoxic respiratory failure, and COPD. (5) Acute kidney injury Comment: Resolved Likely secondary to volume depletion and sepsis. (6) Dementia Comment: Intermittently confused No behavioral concerns (7) DNR (do not resuscitate) Comment: DNR/DNI Trial BiPAP Status and Disposition: Inpatient admission. Plan for discharge to [facility] Sunday.
[2016-09-08] MEDS ORDERED: NS 0.9% 250 ML* 250 ML ONE (17:34)
[2016-09-08] MEDS: cefTRIAXone VIAL(*) 1,000 MG in NS 0.9% 50 ML* 50 ML IVPB SCH (18:02)
[2016-09-08] MEDS: Donepezil TAB* 5 MG PO SCH (18:03)
[2016-09-08] MEDS: Azithromycin IV(*) 500 MG in NS 0.9% 250 ML* 250 ML IVPB SCH (18:22)
[2016-09-08] MEDS: Venlafaxine EXT RELEASE CAP* 75 MG PO SCH (20:44)
[2016-09-08] MEDS: QUEtiapine TAB* 25 MG PO SCH (20:44)
[2016-09-08] MEDS: Atorvastatin* 10 MG TAB PO SCH (21:20)
[2016-09-09] MEDS: Diltiazem TAB* 60 MG PO SCH ×4 (00:48→17:03)
[2016-09-09] MEDS: Omeprazole CAP* 20 MG PO SCH ×2 (08:44→21:24)
[2016-09-09] MEDS: predniSONE TAB* 20 MG PO SCH (08:44)
[2016-09-09] MEDS: Magnesium Oxide TAB* 400 MG PO SCH (08:45)
[2016-09-09] MEDS: oxyCODONE TAB* 5 MG TAB PO SCH ×3 (08:45→21:24)
[2016-09-09] MEDS: Captopril TAB* 12.5 MG PO SCH ×3 (08:45→21:25)
[2016-09-09] MEDS: oxyCODONE SR TAB(*) 10 MG TAB.SR PO SCH ×2 (08:45→21:25)
[2016-09-09] MEDS: Montelukast Sodium TAB* 10 MG PO SCH (08:45)
[2016-09-09] MEDS: Metoprolol Succinate XL TAB* 50 MG PO SCH ×2 (08:45→21:25)
[2016-09-09] MEDS: Tiotropium CAP.INH* CAP.INH/18 MCG (USE ORDER SET !) INH SCH (09:40)
[2016-09-09] MEDS: Mometasone/Formoter 200/5 MDI INH SCH ×2 (09:40→20:48)
--- NOTE | 2016-09-09 10:22 | PN ---
Subjective Date of Service: 09/09/16 Interval History: pt gets very dyspneic going to bathroom. no c/o cough. Overall feels much better Family History: Unchanged from Admission Social History: Unchanged from Admission Past Medical History: Unchanged from Admission Objective Active Medications: Acetaminophen (Tylenol Tab*) 650 mg PO Q4H PRN PRN Reason: PAIN OR TEMPERATURE Albuterol (Ventolin 2.5 Mg/3 Ml Neb.Gianna*) 2.5 mg INH Q2H PRN PRN Reason: SOB/WHEEZING Atorvastatin Calcium (Lipitor*) 10 mg PO BEDTIME [facility] Last Admin: 09/08/16 21:20 Dose: 10 mg Captopril (Capoten Tab*) 12.5 mg PO TID [facility] Last Admin: 09/09/16 08:45 Dose: 12.5 mg Diltiazem HCl (Cardizem Tab*) 60 mg PO Q6HR [facility] Last Admin: 09/09/16 06:08 Dose: 60 mg Diphenhydramine HCl (Benadryl Iv*) 25 mg IV ONCE PRN PRN Reason: RESTLESSNESS Last Admin: 09/04/16 16:20 Dose: 25 mg Donepezil HCl (Aricept Tab*) 5 mg PO QPM [facility] Last Admin: 09/08/16 18:03 Dose: 5 mg Haloperidol Lactate (Haldol Inj Iv/Im*) 2.5 mg IV SLOW PU Q6H PRN PRN Reason: AGITATION Hydralazine HCl (Apresoline Iv*) 10 mg IV Q4H PRN PRN Reason: Systolic >170 Last Admin: 09/05/16 07:02 Dose: 10 mg Hydromorphone HCl (Dilaudid Iv*) 0.5 mg IV Q2H PRN PRN Reason: PAIN Last Admin: 09/07/16 11:07 Dose: 0.5 mg Ceftriaxone Sodium 1,000 mg/ (Sodium Chloride) 50 mls @ 200 mls/hr IVPB Q24H [facility] Last Admin: 09/08/16 18:02 Dose: 200 mls/hr Ipratropium [place] (Atrovent 0.5 Mg Neb.Gianna*) 0.5 mg INH Q6H PRN PRN Reason: SOB/WHEEZING Magnesium Oxide (Magox 400 Tab*) 400 mg PO DAILY [facility] Last Admin: 09/09/16 08:45 Dose: 400 mg Metoprolol Succinate (Toprol Xl Tab*) 50 mg PO BID [facility] Last Admin: 09/09/16 08:45 Dose: 50 mg Mometasone Furoate/Formoterol Fumar (Dulera 200/5 Mdi*) 2 puff INH BID [facility] Last Admin: 09/09/16 09:40 Dose: 2 puff Montelukast Sodium (Singulair Tab*) 10 mg PO QAM [facility] Last Admin: 09/09/16 08:45 Dose: 10 mg Omeprazole (Prilosec Cap*) 20 mg PO BID [facility] Last Admin: 09/09/16 08:44 Dose: 20 mg Oxycodone HCl (Oxycontin(*)) 10 mg PO BID [facility] Last Admin: 09/09/16 08:45 Dose: 10 mg Oxycodone HCl (Roxycodone Tab*) 5 mg PO TID [facility] Last Admin: 09/09/16 08:45 Dose: 5 mg Prednisone (Deltasone Tab*) 60 mg PO DAILY [facility] Last Admin: 09/09/16 08:44 Dose: 60 mg Quetiapine Fumarate (Seroquel Tab*) 25 mg PO BEDTIME [facility] Last Admin: 09/08/16 20:44 Dose: 25 mg Tiotropium [place] (Spiriva Cap.Inh*) 1 cap INH DAILY [facility] Last Admin: 09/09/16 09:40 Dose: 1 inh Venlafaxine HCl (Effexor Xr Cap*) 150 mg PO BEDTIME [facility] Last Admin: 09/08/16 20:44 Dose: 150 mg Vital Signs 09/08/16 09/08/16 09/08/16 11:02 14:43 16:43 Temperature Pulse Rate Respiratory 16 16 16 Rate Blood Pressure (mmHg) O2 Sat by Pulse Oximetry 09/08/16 09/08/16 09/08/16 20:00 20:45 20:46 Temperature Pulse Rate 66 Respiratory 16 16 16 Rate Blood Pressure (mmHg) O2 Sat by Pulse 94 Oximetry 09/08/16 09/08/16 09/08/16 22:45 22:46 23:52 Temperature 98.3 F Pulse Rate 75 Respiratory 16 16 16 Rate Blood Pressure 144/73 (mmHg) O2 Sat by Pulse Oximetry 09/09/16 09/09/16 09/09/16 07:30 08:00 08:45 Temperature 97.9 F Pulse Rate 104 Respiratory 16 20 20 Rate Blood Pressure 155/81 (mmHg) O2 Sat by Pulse 84 Oximetry 09/09/16 09:46 Temperature Pulse Rate 84 Respiratory 18 Rate Blood Pressure (mmHg) O2 Sat by Pulse 95 Oximetry Oxygen Devices in Use Now: Nasal Cannula - at 8 l, 02 sat 94% Appearance: 75 yo f, thin body habitus, in nAd, AAOx2 Eyes: No Scleral Icterus, PERRLA Ears/Nose/Mouth/Throat: NL Teeth, Lips, Gums, Mucous Membranes Moist Neck: NL Appearance and Movements; NL JVP, Trachea Midline Respiratory: Symmetrical Chest Expansion and Respiratory Effort, - - distant breath sounds-clear b/l Cardiovascular: NL Sounds; No Murmurs; No JVD, RRR Abdominal: NL Sounds; No Tenderness; No Distention, No Hepatosplenomegaly Lymphatic: No Cervical Adenopathy Extremities: No Edema, No Clubbing, Cyanosis Skin: No Rash or Ulcers, No Nodules or Sclerosis Neurological: NL Muscle Strength and Tone Result Diagrams: 09/06/16 06:05 09/06/16 06:05 Additional Lab and Data: Microbiology and Other Data: Microbiology 09/03/16 04:20 Nasal Screen MRSA (PCR)(ALEXANDER) - Final Nasal Mrsa Positive Diagnostic Imaging: CXR 09/02 - R basilar infiltrate, ?R hilar LAD CXR 09/05 - slightly worsening R basilar infiltrate, ?R hilar infiltrate Assess/Plan/Problems-Billing Assessment: Ms. Tovar is a 75 yo woman w/ severe COPD who presented w/ acute hypoxic respiratory failure and required NIPPV. - Patient Problems (1) Acute respiratory failure with hypoxia Comment: Secondary to PNA and COPD exacerbation Still requires rather high rates of supp O2 but seems to be tolerating it well and offers no complaints of cough , [place] present (2) COPD exacerbation Comment: Continue treatment w/ corticosteroids, nebulizers cont oral prednisone, Dulera/Spiriva Continue PRN nicotine replacement therapies Encourage smoking cessation (3) PNA (pneumonia) Comment: RLL infiltrate Afebrile cont tx with Ceftriaxone, completed a course of Azithro tx. ?R hilar LAD assoc with RLL PNA on CXR, recommend repeat imaging to ensure resolution, may need CT to eval for possible mass (4) Atrial fibrillation with RVR Comment: apperas to be in regular rythm Continue rate control with PO diltiazem and Toprol XL. Off amiodarone. not anticoagulated as outpatient due to rectus sheath hematoma when on Coumadin in 07/2015 (5) Elevated troponin Comment: No evidence of ACS, no c/o CP Suspect secondary to demand ischemia from sepsis, pneumonia, hypoxic respiratory failure, and COPD. (6) Acute kidney injury Comment: Resolved Likely secondary to volume depletion and sepsis. 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 Plan for discharge to [facility] Sunday.
[2016-09-09] MEDS: cefTRIAXone VIAL(*) 1,000 MG in NS 0.9% 50 ML* 50 ML IVPB SCH (17:03)
[2016-09-09] MEDS: Donepezil TAB* 5 MG PO SCH (17:03)
[2016-09-09] MEDS: Venlafaxine EXT RELEASE CAP* 75 MG PO SCH (21:24)
[2016-09-09] MEDS: QUEtiapine TAB* 25 MG PO SCH (21:24)
[2016-09-09] MEDS: Atorvastatin* 10 MG TAB PO SCH (21:25)
[2016-09-10] MEDS: Diltiazem TAB* 60 MG PO SCH ×4 (00:16→17:40)
[2016-09-10] MEDS: Metoprolol Succinate XL TAB* 50 MG PO SCH ×2 (08:13→21:31)
[2016-09-10] MEDS: Magnesium Oxide TAB* 400 MG PO SCH (08:13)
[2016-09-10] MEDS: Montelukast Sodium TAB* 10 MG PO SCH (08:13)
[2016-09-10] MEDS: Omeprazole CAP* 20 MG PO SCH ×2 (08:14→21:31)
[2016-09-10] MEDS: oxyCODONE SR TAB(*) 10 MG TAB.SR PO SCH ×2 (08:14→21:27)
[2016-09-10] MEDS: oxyCODONE TAB* 5 MG TAB PO SCH ×3 (08:14→21:27)
[2016-09-10] MEDS: Captopril TAB* 12.5 MG PO SCH ×3 (08:14→21:29)
[2016-09-10] MEDS: predniSONE TAB* 20 MG PO SCH (08:14)
[2016-09-10] MEDS: Tiotropium CAP.INH* CAP.INH/18 MCG (USE ORDER SET !) INH SCH (08:52)
[2016-09-10] MEDS: Mometasone/Formoter 200/5 MDI INH SCH ×2 (08:52→21:18)
--- NOTE | 2016-09-10 09:55 | PN ---
Subjective Date of Service: 09/10/16 Interval History: pt feels well. no complaints. Family History: Unchanged from Admission Social History: Unchanged from Admission Past Medical History: Unchanged from Admission Objective Active Medications: Acetaminophen (Tylenol Tab*) 650 mg PO Q4H PRN PRN Reason: PAIN OR TEMPERATURE Albuterol (Ventolin 2.5 Mg/3 Ml Neb.Gianna*) 2.5 mg INH Q2H PRN PRN Reason: SOB/WHEEZING Atorvastatin Calcium (Lipitor*) 10 mg PO BEDTIME [facility] Last Admin: 09/09/16 21:25 Dose: 10 mg Captopril (Capoten Tab*) 12.5 mg PO TID [facility] Last Admin: 09/10/16 08:14 Dose: 12.5 mg Diltiazem HCl (Cardizem Tab*) 60 mg PO Q6HR [facility] Last Admin: 09/10/16 06:10 Dose: 60 mg Diphenhydramine HCl (Benadryl Iv*) 25 mg IV ONCE PRN PRN Reason: RESTLESSNESS Last Admin: 09/04/16 16:20 Dose: 25 mg Donepezil HCl (Aricept Tab*) 5 mg PO QPM [facility] Last Admin: 09/09/16 17:03 Dose: 5 mg Haloperidol Lactate (Haldol Inj Iv/Im*) 2.5 mg IV SLOW PU Q6H PRN PRN Reason: AGITATION Ceftriaxone Sodium 1,000 mg/ (Sodium Chloride) 50 mls @ 200 mls/hr IVPB Q24H [facility] Last Admin: 09/09/16 17:03 Dose: 200 mls/hr Ipratropium Clifford (Atrovent 0.5 Mg Neb.Gianna*) 0.5 mg INH Q6H PRN PRN Reason: SOB/WHEEZING Magnesium Oxide (Magox 400 Tab*) 400 mg PO DAILY [facility] Last Admin: 09/10/16 08:13 Dose: 400 mg Metoprolol Succinate (Toprol Xl Tab*) 50 mg PO BID [facility] Last Admin: 09/10/16 08:13 Dose: 50 mg Mometasone Furoate/Formoterol Fumar (Dulera 200/5 Mdi*) 2 puff INH BID [facility] Last Admin: 09/10/16 08:52 Dose: 2 puff Montelukast Sodium (Singulair Tab*) 10 mg PO QAM [facility] Last Admin: 09/10/16 08:13 Dose: 10 mg Omeprazole (Prilosec Cap*) 20 mg PO BID [facility] Last Admin: 09/10/16 08:14 Dose: 20 mg Oxycodone HCl (Oxycontin(*)) 10 mg PO BID [facility] Last Admin: 09/10/16 08:14 Dose: 10 mg Oxycodone HCl (Roxycodone Tab*) 5 mg PO TID [facility] Last Admin: 09/10/16 08:14 Dose: 5 mg Prednisone (Deltasone Tab*) 60 mg PO DAILY [facility] Last Admin: 09/10/16 08:14 Dose: 60 mg Quetiapine Fumarate (Seroquel Tab*) 25 mg PO BEDTIME [facility] Last Admin: 09/09/16 21:24 Dose: 25 mg Tiotropium Clifford (Spiriva Cap.Inh*) 1 cap INH DAILY [facility] Last Admin: 09/10/16 08:52 Dose: 1 inh Venlafaxine HCl (Effexor Xr Cap*) 150 mg PO BEDTIME [facility] Last Admin: 09/09/16 21:24 Dose: 150 mg Vital Signs 09/09/16 09/09/16 09/09/16 10:20 13:13 15:13 Temperature Pulse Rate 73 Respiratory 20 16 20 Rate Blood Pressure 172/85 (mmHg) O2 Sat by Pulse Oximetry 09/09/16 09/09/16 09/09/16 15:51 20:54 21:24 Temperature 98.1 F Pulse Rate 67 83 Respiratory 16 14 20 Rate Blood Pressure 139/69 (mmHg) O2 Sat by Pulse 94 95 Oximetry 09/09/16 09/09/16 09/09/16 21:25 21:33 23:24 Temperature Pulse Rate Respiratory 16 18 18 Rate Blood Pressure (mmHg) O2 Sat by Pulse Oximetry 09/09/16 09/09/16 09/10/16 23:25 23:52 07:44 Temperature 98.1 F 97.5 F Pulse Rate 92 73 Respiratory 18 16 16 Rate Blood Pressure 130/70 181/83 (mmHg) O2 Sat by Pulse 97 50 Oximetry 09/10/16 09/10/16 09/10/16 08:00 08:14 08:54 Temperature Pulse Rate 75 Respiratory 20 20 22 Rate Blood Pressure (mmHg) O2 Sat by Pulse 95 Oximetry Oxygen Devices in Use Now: Nasal Cannula - at 6 l Appearance: 75 yo f in nAD, aAOx2, intermittenly disoriented during eval Eyes: No Scleral Icterus, PERRLA Ears/Nose/Mouth/Throat: NL Teeth, Lips, Gums, Mucous Membranes Moist Neck: NL Appearance and Movements; NL JVP, Trachea Midline Respiratory: Symmetrical Chest Expansion and Respiratory Effort, Clear to Auscultation Cardiovascular: NL Sounds; No Murmurs; No JVD, RRR Abdominal: NL Sounds; No Tenderness; No Distention Lymphatic: No Cervical Adenopathy Extremities: No Edema, No Clubbing, Cyanosis Skin: No Rash or Ulcers, No Nodules or Sclerosis Neurological: Alert and Oriented x 3 Result Diagrams: 09/06/16 06:05 09/06/16 06:05 Additional Lab and Data: Microbiology and Other Data: Microbiology 09/03/16 04:20 Nasal Screen MRSA (PCR)(ALEXANDER) - Final Nasal Mrsa Positive Diagnostic Imaging: CXR 09/02 - R basilar infiltrate, ?R hilar LAD CXR 09/05 - slightly worsening R basilar infiltrate, ?R hilar infiltrate Assess/Plan/Problems-Billing Assessment: Ms. Tovar is a 75 yo woman w/ severe COPD who presented w/ acute hypoxic respiratory failure and required NIPPV. - Patient Problems (1) Acute respiratory failure with hypoxia Comment: Secondary to PNA and COPD exacerbation Still requires rather high rates of supp O2 but seems to be tolerating it well and offers no complaints of cough , [place] still present (2) COPD exacerbation Comment: Continue treatment w/ corticosteroids, nebulizers cont oral prednisone ( will lower the dose for 60 to 40 mg ), Dulera/Spiriva Continue PRN nicotine replacement therapies Encourage smoking cessation (3) PNA (pneumonia) Comment: RLL infiltrate Afebrile cont tx with Ceftriaxone, completed a course of Azithro tx. ?R hilar LAD assoc with RLL PNA on CXR, recommend repeat imaging to ensure resolution, may need CT to eval for possible mass (4) Atrial fibrillation with RVR Comment: apperas to be in regular rythm Continue rate control with PO diltiazem and Toprol XL. Off amiodarone. not anticoagulated as outpatient due to rectus sheath hematoma when on Coumadin in 07/2015 (5) Elevated troponin Comment: No evidence of ACS, no c/o CP Suspect secondary to demand ischemia from sepsis, pneumonia, hypoxic respiratory failure, and COPD. (6) Acute kidney injury Comment: Resolved Likely secondary to volume depletion and sepsis. 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 Plan for discharge to [facility] Sunday.
[2016-09-10] MEDS: Donepezil TAB* 5 MG PO SCH (17:40)
[2016-09-10] MEDS: cefTRIAXone VIAL(*) 1,000 MG in NS 0.9% 50 ML* 50 ML IVPB SCH (17:40)
[2016-09-10] MEDS: Acetaminophen TAB* 325 MG PO PRN (17:43)
[2016-09-10] MEDS: Venlafaxine EXT RELEASE CAP* 75 MG PO SCH (21:26)
[2016-09-10] MEDS: QUEtiapine TAB* 25 MG PO SCH (21:27)
[2016-09-10] MEDS: Atorvastatin* 10 MG TAB PO SCH (21:31)
[2016-09-11] MEDS: Diltiazem TAB* 60 MG PO SCH ×2 (01:04→06:53)
[2016-09-11 06:21] LABS: Hematocrit 45 % (35-47); Hemoglobin 14.6 g/dl (12.0-16.0); Mean Corpuscular HGB Conc 32 g/dl (31-36); Mean Corpuscular Hemoglobin 30 pg (27-31); Mean Corpuscular Volume 93 fL (80-97); Mean Platelet Volume 10 um3 (7.4-10.4); Red Blood Count 4.85 10^6/ul (4.0-5.4); Red Cell Distribution Width 15 % (10.5-15); White Blood Count 21.1 10^3/ul (3.5-10.8)
[2016-09-11 06:22] LABS: Comments Flag Yes
[2016-09-11 06:35] LABS: BUN/Creatinine Ratio 25.9 (8-20); Calcium 9.2 mg/dL (8.6-10.3); EGFR African American 88.6 (>60); EGFR Non-African American 68.9 (>60)
--- NOTE | 2016-09-11 08:23 | PN ---
Subjective Date of Service: 09/11/16 Interval History: No new c/o. Slept well. No cough, pain. Appetite fair. Family History: Unchanged from Admission Social History: Unchanged from Admission Past Medical History: Unchanged from Admission Objective Active Medications: Acetaminophen (Tylenol Tab*) 650 mg PO Q4H PRN PRN Reason: PAIN OR TEMPERATURE Last Admin: 09/10/16 17:43 Dose: 650 mg Albuterol (Ventolin 2.5 Mg/3 Ml Neb.Gianna*) 2.5 mg INH Q2H PRN PRN Reason: SOB/WHEEZING Atorvastatin Calcium (Lipitor*) 10 mg PO BEDTIME [facility] Last Admin: 09/10/16 21:31 Dose: 10 mg Captopril (Capoten Tab*) 12.5 mg PO TID [facility] Last Admin: 09/10/16 21:29 Dose: 12.5 mg Diltiazem HCl (Cardizem Tab*) 60 mg PO Q6HR [facility] Last Admin: 09/11/16 06:53 Dose: 60 mg Diphenhydramine HCl (Benadryl Iv*) 25 mg IV ONCE PRN PRN Reason: RESTLESSNESS Last Admin: 09/04/16 16:20 Dose: 25 mg Donepezil HCl (Aricept Tab*) 5 mg PO QPM [facility] Last Admin: 09/10/16 17:40 Dose: 5 mg Haloperidol Lactate (Haldol Inj Iv/Im*) 2.5 mg IV SLOW PU Q6H PRN PRN Reason: AGITATION Ceftriaxone Sodium 1,000 mg/ (Sodium Chloride) 50 mls @ 200 mls/hr IVPB Q24H [facility] Last Admin: 09/10/16 17:40 Dose: 200 mls/hr Ipratropium Carver (Atrovent 0.5 Mg Neb.Gianna*) 0.5 mg INH Q6H PRN PRN Reason: SOB/WHEEZING Magnesium Oxide (Magox 400 Tab*) 400 mg PO DAILY [facility] Last Admin: 09/10/16 08:13 Dose: 400 mg Metoprolol Succinate (Toprol Xl Tab*) 50 mg PO BID [facility] Last Admin: 09/10/16 21:31 Dose: 50 mg Mometasone Furoate/Formoterol Fumar (Dulera 200/5 Mdi*) 2 puff INH BID [facility] Last Admin: 09/10/16 21:18 Dose: 2 puff Montelukast Sodium (Singulair Tab*) 10 mg PO QAM [facility] Last Admin: 09/10/16 08:13 Dose: 10 mg Omeprazole (Prilosec Cap*) 20 mg PO BID [facility] Last Admin: 09/10/16 21:31 Dose: 20 mg Oxycodone HCl (Oxycontin(*)) 10 mg PO BID [facility] Last Admin: 09/10/16 21:27 Dose: 10 mg Oxycodone HCl (Roxycodone Tab*) 5 mg PO TID [facility] Last Admin: 09/10/16 21:27 Dose: 5 mg Prednisone (Deltasone Tab*) 40 mg PO DAILY [facility] Quetiapine Fumarate (Seroquel Tab*) 25 mg PO BEDTIME [facility] Last Admin: 09/10/16 21:27 Dose: 25 mg Tiotropium Carver (Spiriva Cap.Inh*) 1 cap INH DAILY [facility] Last Admin: 09/10/16 08:52 Dose: 1 inh Venlafaxine HCl (Effexor Xr Cap*) 150 mg PO BEDTIME [facility] Last Admin: 09/10/16 21:26 Dose: 150 mg Vital Signs 09/10/16 09/10/16 09/10/16 08:14 08:54 10:14 Temperature Pulse Rate 75 Respiratory 20 22 20 Rate Blood Pressure (mmHg) O2 Sat by Pulse 95 Oximetry 09/10/16 09/10/16 09/10/16 13:14 13:16 15:16 Temperature Pulse Rate 80 Respiratory 20 20 Rate Blood Pressure 185/91 (mmHg) O2 Sat by Pulse Oximetry 09/10/16 09/10/16 09/10/16 15:44 20:00 21:27 Temperature 98.3 F Pulse Rate 92 54 Respiratory 16 10 18 Rate Blood Pressure 136/70 (mmHg) O2 Sat by Pulse 95 82 Oximetry 09/10/16 09/10/16 09/10/16 21:34 23:27 23:32 Temperature 97.4 F Pulse Rate 65 Respiratory 18 16 15 Rate Blood Pressure 129/69 (mmHg) O2 Sat by Pulse 93 Oximetry 09/11/16 07:43 Temperature 97.8 F Pulse Rate 49 Respiratory 18 Rate Blood Pressure 151/90 (mmHg) O2 Sat by Pulse 95 Oximetry Oxygen Devices in Use Now: Nasal Cannula - at 6 l Appearance: Alert, in a chair. In good spirits. Looks comfortable. Eyes: No Scleral Icterus Ears/Nose/Mouth/Throat: Clear Oropharnyx, Mucous Membranes Moist Neck: NL Appearance and Movements; NL JVP, No Thyroid Enlargement, Masses Respiratory: Symmetrical Chest Expansion and Respiratory Effort, Clear to Auscultation, Clear to Percussion Cardiovascular: NL Sounds; No Murmurs; No JVD, RRR, No Edema, - Abdominal: NL Sounds; No Tenderness; No Distention, No Hepatosplenomegaly, - Extremities: No Edema, No Clubbing, Cyanosis, - Skin: No Rash or Ulcers, No Nodules or Sclerosis, - Neurological: NL Sensation - Cooperative. Sparse speech. She knows her age and the present month, did not know the na me of the faiclity. Result Diagrams: 09/11/16 06:07 09/11/16 06:07 Additional Lab and Data: Microbiology and Other Data: Microbiology 09/03/16 04:20 Nasal Screen MRSA (PCR)(ALEXANDER) - Final Nasal Mrsa Positive Diagnostic Imaging: CXR 09/02 - R basilar infiltrate, ?R hilar LAD CXR 09/05 - slightly worsening R basilar infiltrate, ?R hilar infiltrate Assess/Plan/Problems-Billing Assessment: Ms. Tovar is a 75 yo woman w/ severe COPD who presented w/ acute hypoxic respiratory failure and required NIPPV. - Patient Problems (1) PNA (pneumonia) Current Visit: Yes Status: Acute Code(s): J18.9 - PNEUMONIA, UNSPECIFIED ORGANISM SNOMED Code(s): 571511868 Comment: RLL infiltrate Afebrile cont tx with Ceftriaxone, completed a course of Azithro tx. ?R hilar LAD assoc with RLL PNA on CXR, recommend repeat imaging to ensure resolution, may need CT to eval for possible mass (2) COPD exacerbation Current Visit: No Status: Acute Priority: High Code(s): J44.1 - CHRONIC OBSTRUCTIVE PULMONARY DISEASE W (ACUTE) EXACERBATION SNOMED Code(s): 507413236 Comment: Continue treatment w/ corticosteroids, nebulizers Prednisone taper (3) Atrial fibrillation Current Visit: Yes Status: Acute Code(s): I48.91 - UNSPECIFIED ATRIAL FIBRILLATION SNOMED Code(s): 10708400 Comment: Not on anticoagulation due to rectus sheath hematoma while on anticoagulation. Rate-controlled. Reduce diltiazem to 120 mg/day due to HR 49. (4) Dementia Current Visit: No Status: Chronic Priority: Medium Code(s): F03.90 - UNSPECIFIED DEMENTIA WITHOUT BEHAVIORAL DISTURBANCE SNOMED Code(s): 24291069 Comment: Continue donepezil Intermittently confused No behavioral concerns (5) Acute kidney injury Current Visit: No Status: Acute Priority: Medium Code(s): N17.9 - ACUTE KIDNEY FAILURE, UNSPECIFIED SNOMED Code(s): 97423610 Comment: Resolved Likely secondary to volume depletion and sepsis. (6) Elevated troponin Current Visit: Yes Status: Acute Code(s): R74.8 - ABNORMAL LEVELS OF OTHER SERUM ENZYMES SNOMED Code(s): 926649253 Comment: No evidence of ACS, no c/o CP Suspect secondary to demand ischemia from sepsis, pneumonia, hypoxic respiratory failure, and COPD. Status and Disposition: Inpatient admission. Plan for discharge to [facility] Sunday.
[2016-09-11] MEDS: Acetaminophen TAB* 325 MG PO PRN ×2 (09:01→20:07)
[2016-09-11] MEDS: Mometasone/Formoter 200/5 MDI INH SCH ×2 (09:28→21:04)
[2016-09-11] MEDS: Tiotropium CAP.INH* CAP.INH/18 MCG (USE ORDER SET !) INH SCH (09:28)
[2016-09-11] MEDS: Omeprazole CAP* 20 MG PO SCH ×2 (09:53→20:07)
[2016-09-11] MEDS: Magnesium Oxide TAB* 400 MG PO SCH (09:55)
[2016-09-11] MEDS: Metoprolol Succinate XL TAB* 50 MG PO SCH ×2 (09:55→22:28)
[2016-09-11] MEDS: predniSONE TAB* 20 MG PO SCH (09:55)
[2016-09-11] MEDS: Montelukast Sodium TAB* 10 MG PO SCH (09:55)
[2016-09-11] MEDS: Captopril TAB* 12.5 MG PO SCH ×3 (09:56→22:28)
[2016-09-11] MEDS: oxyCODONE SR TAB(*) 10 MG TAB.SR PO SCH ×2 (09:59→22:28)
[2016-09-11] MEDS: oxyCODONE TAB* 5 MG TAB PO SCH (09:59)
[2016-09-11] MEDS ORDERED: Diltiazem CD CAP* 120 MG PO SCH (11:00)
[2016-09-11] MEDS ORDERED: oxyCODONE TAB* 5 MG TAB PO PRN (13:23)
[2016-09-11] MEDS: Diltiazem CD CAP* 120 MG PO SCH (13:33)
[2016-09-11] MEDS: cefTRIAXone VIAL(*) 1,000 MG in NS 0.9% 50 ML* 50 ML IVPB SCH ×2 (18:03→22:27)
[2016-09-11] MEDS: Donepezil TAB* 5 MG PO SCH (18:03)
[2016-09-11] MEDS: Venlafaxine EXT RELEASE CAP* 75 MG PO SCH (20:07)
[2016-09-11] MEDS: QUEtiapine TAB* 25 MG PO SCH (20:07)
[2016-09-11] MEDS: Atorvastatin* 10 MG TAB PO SCH (20:08)
--- NOTE | 2016-09-11 20:19 | PN ---
Progress Note - Progress Note Note: Paged by RN - Family wants patient to have her oxycontin back. She has pain but often doesn't know to ask for pain meds. Looks like she had scheduled oxycodone and oxycontin ordered. Will reorder her oxycontin. COntinue prn oxycodone for now. Hold on scheduled oxycodone.
[2016-09-12] MEDS: Metoprolol Succinate XL TAB* 50 MG PO SCH (09:45)
[2016-09-12] MEDS: Captopril TAB* 12.5 MG PO SCH ×2 (09:45→12:46)
[2016-09-12] MEDS: oxyCODONE SR TAB(*) 10 MG TAB.SR PO SCH (09:45)
[2016-09-12] MEDS: Omeprazole CAP* 20 MG PO SCH (09:45)
[2016-09-12] MEDS: Magnesium Oxide TAB* 400 MG PO SCH (09:46)
[2016-09-12] MEDS: Montelukast Sodium TAB* 10 MG PO SCH (09:46)
[2016-09-12] MEDS: predniSONE TAB* 20 MG PO SCH (09:46)
[2016-09-12] MEDS: Diltiazem CD CAP* 120 MG PO SCH (09:46)
[2016-09-12] MEDS: Tiotropium CAP.INH* CAP.INH/18 MCG (USE ORDER SET !) INH SCH (09:50)
[2016-09-12] MEDS: Mometasone/Formoter 200/5 MDI INH SCH (09:50)
[2016-09-12 11:10] VITALS: BP 160/85
[2016-09-12] MEDS ORDERED: Magnesium Hydroxide LIQ* 30 ML UDC PO ONE (11:27)
[2016-09-12] MEDS ORDERED: predniSONE TAB* 20 MG PO SCH (12:25)
--- NOTE | 2016-09-12 14:03 | DS ---
DATE OF ADMISSION: 09/02/2016. DATE OF DISCHARGE: 09/12/2016. HISTORY OF PRESENT ILLNESS: This 75-year-old woman presented with shortness of breath. She was smoking up until the time of admission. Her daughter found her to be disoriented at home. The history was given that she had been at her baseline a day or two before that. Chest x-ray showed a right-sided infiltrate and presumed reactive lymphadenopathy versus a perihilar infiltrate. The patient was felt to have sepsis due to pneumonia. She was given intravenous fluids and antibiotics. She was treated with Ceftriaxone and Azithromycin. She did well. Her mental status I believe returned to baseline. She does have some dementia, but is usually quite cooperative and pleasant. The patient finished her antibiotics. She was having her Prednisone dose tapered. Repeat chest x-ray should be done in two to four weeks to evaluate for adenopathy. FINAL DIAGNOSES: 1. Pneumonia. 2. COPD exacerbation. 3. Atrial fibrillation. 4. Dementia. 5. Acute kidney injury, resolved. 6. Elevated troponin due to demand ischemia. DISCHARGE MEDICATIONS: 1. Amiodarone 100 mg daily. 2. Captopril 12.5 mg t.i.d. 3. Diltiazem CD 120 mg daily. 4. Ipratropium Albuterol by nebulizer every 6 hours prn. 5. Magnesium oxide 400 mg daily. 6. Metoprolol succinate 50 mg b.i.d. 7. Polyethylene glycol 17 gm b.i.d. 8. Oxycodone SR 10 mg b.i.d. 9. Oxycodone 5 mg every 4 hours prn, not to exceed 3 per day. 10. Prednisone 30 mg daily to taper to 0 over 3 days. 11. Acetaminophen 650 mg every 4 hours prn. 12. Omeprazole 20 mg b.i.d. 13. Montelukast 10 mg daily. 14. Venlafaxine 150 mg at bedtime. 15. Simvastatin 20 mg at bedtime. 16. Quetiapine 25 mg at bedtime. 17. Mometasone Formoterol 200/5 two puffs b.i.d. 18. Tiotropium one capsule daily. 19. Albuterol inhaler two puffs every 4 hours prn. 20. Donepezil 5 mg at bedtime. CC: Dr. Mcdonald* [id number]/[facility] #: [id number] NANNET[place]
[2016-09-12] MEDS ORDERED: Polyethylene Glycol 3350* 17 GM PACKET PO SCH (21:00)
== END 2016-09-12 14:10 | DRG 871 ==
LOC: ED 17:59 → ICU 19:35 → MED 09-06 10:12
PROVIDERS: ADMIT Internal Medicine; ATTEND Internal Medicine
PROC: 5A09357 Assistance with Respiratory Ventilation, Less than 24 Consecutive Hours, Continuous Positive Airway Pressure (ICD-10-PCS; principal; 2016-09-02)
DX: A41.9 Sepsis, unspecified organism (principal); J96.01 Acute respiratory failure with hypoxia; I11.0 Hypertensive heart disease with heart failure; J18.9 Pneumonia, unspecified organism; N17.9 Acute kidney failure, unspecified; I50.9 Heart failure, unspecified; G30.9 Alzheimer's disease, unspecified; I24.8 Other forms of acute ischemic heart disease; F03.90 Unspecified dementia, unspecified severity, without behavioral disturbance, psychotic disturbance, mood disturbance, and anxiety; J44.0 Chronic obstructive pulmonary disease with (acute) lower respiratory infection; J44.1 Chronic obstructive pulmonary disease with (acute) exacerbation; Z88.2 Allergy status to sulfonamides; Z88.8 Allergy status to other drugs, medicaments and biological substances; Z91.030 Bee allergy status; Z86.718 Personal history of other venous thrombosis and embolism; E78.00 Pure hypercholesterolemia, unspecified; I48.0 Paroxysmal atrial fibrillation; J45.909 Unspecified asthma, uncomplicated; K21.9 Gastro-esophageal reflux disease without esophagitis; M13.80 Other specified arthritis, unspecified site; G89.29 Other chronic pain; M54.9 Dorsalgia, unspecified; Z98.42 Cataract extraction status, left eye; Z98.41 Cataract extraction status, right eye; G43.909 Migraine, unspecified, not intractable, without status migrainosus; F32.9 Major depressive disorder, single episode, unspecified; Z96.651 Presence of right artificial knee joint; Z86.14 Personal history of Methicillin resistant Staphylococcus aureus infection; Z81.8 Family history of other mental and behavioral disorders; Z98.51 Tubal ligation status; F17.210 Nicotine dependence, cigarettes, uncomplicated; F02.80 Dementia in other diseases classified elsewhere, unspecified severity, without behavioral disturbance, psychotic disturbance, mood disturbance, and anxiety; E87.6 Hypokalemia; Z66 Do not resuscitate; Z79.52 Long term (current) use of systemic steroids; R65.20 Severe sepsis without septic shock
CPT/HCPCS: 36415; 71010; 80048; 80053; 81003; 81015; 83605; 83735; 84484; 85025; 85027; 85610; 85730; 87040; 87086; 87502; 87641; 93005; 94640; 94660; 94760; 99285; 99406; A9270-GY; J0282; J0360; J0456; J0696; J1170; J1200; J1630; J2060; J2270; J2930; J3490; J7512

== ENCOUNTER 2018-03-20 15:04 | Observation (INO) | payer MEDICARE ==
[2018-03-20 17:10] LABS: Hematocrit 43 % (35-47); Hemoglobin 14.3 g/dl (12.0-16.0); Mean Corpuscular HGB Conc 33 g/dl (31-36); Mean Corpuscular Hemoglobin 30 pg (27-31); Mean Corpuscular Volume 91 fL (80-97); Mean Platelet Volume 11.6 um3 (7.4-10.4); Platelet Count 231 10^3/ul (150-450); Red Blood Count 4.78 10^6/ul (4.00-5.40); Red Cell Distribution Width 15 % (10.5-15); White Blood Count 10.3 10^3/ul (3.5-10.8)
[2018-03-20 17:35] LABS: EGFR Non-African American 35.6 (>60)
[2018-03-20 17:42] LABS: ABS Basophils 0.1 10^3/ul (0-0.2); ABS Eosinophils 0 10^3/ul (0-0.6); ABS Lymphocytes 1.1 10^3/ul (1.0-4.8); ABS Monocytes 0.7 10^3/ul (0-0.8); ABS Neutrophils 8.5 10^3/ul (1.5-7.7); ABS Nucleated RBC 0 10^3/ul; Eosinophil % 0.4 % (0-6); Lymphocyte % 10.7 % (25-47); Nucleated Red Blood Cells % 0.1
[2018-03-20] MEDS ORDERED: NS 0.9% 1000 ML* 2,000 ML IV ONE (17:48)
[2018-03-20] MEDS ORDERED: Ondansetron INJ* 2 MG/ML VIAL IV ONE (17:49)
--- NOTE | 2018-03-20 18:11 | ED ---
Abdominal Pain/Female - HPI Summary HPI Summary: Pt is a 77 year old female presenting to the ED BIBA with a chief complaint of abd pain. Per daughter, she came home yesterday from the [facility] fine, and today she did not want to eat, drink, or get up, and said that the pt just wanted to lie down. The third time she tried to get the pt up, she had abd pain and had diarrhea, then had some nausea and vomiting and was diaphoretic. She was in the [facility] to begin with because she went to the hospital w/ a UTI that turned septic, and she went to the [facility] to regain strength. The pt has a hx of kidney failure, UTIs, and dehydration. - History of Current Complaint Chief Complaint: EDAbdPain Stated Complaint: ABD PAIN Time Seen by Provider: 03/20/18 15:30 Hx Obtained From: Patient Onset/Duration: Sudden Onset, Lasting Days, Resolved Timing: Constant Severity Initially: Mild Severity Currently: Mild Pain Intensity: 0 Pain Scale Used: 0-10 Numeric Location: Umbilical Character: Cramping Associated Signs and Symptoms: Positive: Diaphoresis, Nausea, Vomiting, Diarrhea. Negative: Fever, Cough, Chest Pain, Dizzy, Back Pain Allergies/Adverse Reactions: Allergies Allergy/AdvReac Type Severity Reaction Status Date / Time MS Sulfa Drugs Allergy Mild Unknown Verified 07/04/15 17:44 Reaction Details MS Bee Venom [Bee Venom] Allergy Unknown Verified 09/07/16 12:36 Reaction Details MS Enoxaparin [From Lovenox] Allergy HIT Verified 07/04/15 19:03 MS Heparin [Heparin] Allergy HIT Verified 07/04/15 19:03 MS Gabapentin AdvReac CONFUSION Verified 09/02/16 23:03 [From Neurontin] ENVIRONMENTAL Allergy Mild SEASONAL Uncoded 07/02/12 23:37 Home Medications: Home Medications Aspirin EC TAB* [Ecotrin EC Low Dose 81 MG*] 81 mg PO DAILY 03/20/18 [History Confirmed 03/20/18] Calcium Carb/Vit D3/Minerals [Calcium 600+D Plus [place]] 1 tab PO DAILY [History Confirmed 03/20/18] Cholecalciferol (Vitamin D3) [Vitamin D3] 2,000 unit PO DAILY 03/20/18 [History Confirmed 03/20/18] Donepezil TAB* [Aricept 5 MG TAB*] 10 mg PO DAILY 03/20/18 [History Confirmed ] Ferrous Sulfate TAB* 325 mg PO DAILY 03/20/18 [History Confirmed 03/20/18] Furosemide TAB* [Lasix TAB*] 20 mg PO DAILY 03/20/18 [History Confirmed 03/20/18 ] Lactobacillus Acidophilus [Probiotic Acidophilus Sup] 1 tab PO BID 03/20/18 [ History Confirmed 03/20/18] Losartan/HCTZ 100/25 (NF) [Hyzaar 100/25 (NF)] 1 tab PO DAILY 03/20/18 [History Confirmed 03/20/18] Melatonin [Meladox] 9 mg PO BEDTIME 03/20/18 [History Confirmed 03/20/18] Metoprolol Succinate XL TAB* [Toprol XL TAB*] 50 mg PO DAILY 03/20/18 [History Confirmed 03/20/18] Montelukast Sodium TAB* [Singulair TAB*] 10 mg PO DAILY 03/20/18 [History Confirmed 03/20/18] Omeprazole CAP* [Prilosec CAP* 20 MG] 20 mg PO DAILY 03/20/18 [History Confirmed 03/20/18] Potassium Chlor TAB* [Klor Con ER TAB*] 20 meq PO DAILY 03/20/18 [History Confirmed 03/20/18] QUEtiapine TAB* [Seroquel 25 MG TAB*] 25 mg PO DAILY 03/20/18 [History Confirmed 03/20/18] Simvastatin TAB(NF) [Zocor(NF)] 20 mg PO DAILY 03/20/18 [History Confirmed 03/20] Venlafaxine CAP (NF) [Effexor CAP (NF)] 75 mg PO DAILY 03/20/18 [History Confirmed 03/20/18] amLODIPine TAB* [Norvasc 5 mg TAB*] 10 mg PO DAILY 03/20/18 [History Confirmed 03/20/18] PMH/Surg Hx/FS Hx/Imm Hx Previously Healthy: No Endocrine/Hematology History: Reports: Hx Anticoagulant Therapy - Currently on coumadin, Heparin causes thrombocytopenia, Hx Anemia - HX OF Denies: Hx Diabetes, Hx Systemic Lupus Erythematosus Cardiovascular History: Reports: Hx Aneurysm - AAA, Hx Congestive Heart Failure , Hx Deep Vein Thrombosis, Hx Hypercholesterolemia, Hx Hypertension, Other Cardiovascular Problems/Disorders - paroxysmal afib, HLD, Hx DVt Respiratory History: Reports: Hx Asthma, Hx Chronic Obstructive Pulmonary Disease (COPD), Other Respiratory Problems/Disorders - TROUBLE BREATHING ON HUMID DAYS GI History: Reports: Hx Gall Bladder Disease - Cholecystectomy, Hx Gastroesophageal Reflux Disease, Hx Gastrointestinal Bleed, Other GI Disorders - AAA History: Reports: Hx Kidney Infection - 50+ YEARS AGO, Other Problems/ Disorders - Urgency Denies: Hx Dialysis, Hx Renal Disease Musculoskeletal History: Reports: Hx Arthritis - GENERALIZED, Hx Back Problems - Chronic back pain Sensory History: Reports: Hx Cataracts - Removed, Hx Contacts or Glasses - at home Denies: Hx Hearing Aid Opthamlomology History: Reports: Hx Cataracts - Removed, Hx Contacts or Glasses - at home Neurological History: Reports: Hx Dementia - Alzheimer's, Hx Migraine - HX Psychiatric History: Reports: Hx Depression - ON MEDICATION FOR - Surgical History Surgery Procedure, Year, and Place: TUBAL,TMJ,CATARACTS BILAT,KNEE RIGHT REPLACEMENT,AAA, SANDEEP/APPY Hx Anesthesia Reactions: No - Immunization History Date of Tetanus Vaccine: Unk Date of Influenza Vaccine: Fall 2014 Immunizations Up to Date: Yes Infectious Disease History: No Infectious Disease History: Reports: Hx of Known/Suspected MRSA Denies: Traveled Outside the [place] in Last 30 Days - Family History Known Family History: Positive: Other - Alzheimer's (mother) - Social History Alcohol Use: None Substance Use Type: Reports: None Smoking Status (MU): Heavy Every Day Tobacco Smoker Type: Cigarettes Amount Used/How Often: 1-2 ppd Length of Time of Smoking/Using Tobacco: 50 years Have You Smoked in the Last Year: Yes Review of Systems Positive: Skin Diaphoresis. Negative: Fever, Chills Negative: Erythema Negative: Sore Throat Negative: Chest Pain Negative: Shortness Of Breath, Cough Positive: Vomiting, Diarrhea, Nausea Negative: dysuria, hematuria Negative: Myalgia, Edema Negative: Rash Neurological: Negative - dizziness All Other Systems Reviewed And Are Negative: Yes Physical Exam - Summary Physical Exam Summary: Constitutional: Well-developed, Well-nourished, Alert. (-) Distressed Skin: Warm, Dry HENT: Normocephalic; Atraumatic, dry mucous membranes Eyes: Conjunctiva normal Neck: Musculoskeletal ROM normal neck. (-) JVD, (-) Stridor, (-) Tracheal deviation Cardio: Rhythm regular, rate normal, Heart sounds normal; Intact distal pulses; The pedal pulses are 2+ and symmetric. Radial pulses are 2+ and symmetric. (-) Murmur Pulmonary/Chest wall: Effort normal. (-) Respiratory distress, (-) Wheezes, (-) Rales Abd: Soft, (-) epigastric tenderness, (-) Distension, (-) Guarding, (-) Rebound Musculoskeletal: (-) Edema Lymph: (-) Cervical adenopathy Neuro: Alert, Oriented x3 Psych: Mood and affect Normal Triage Information Reviewed: Yes Vital Signs On Initial Exam: Initial Vitals Temp Pulse Resp BP Pulse Ox 98.8 F 101 18 143/87 92 03/20/18 15:17 03/20/18 15:17 03/20/18 15:17 03/20/18 15:17 03/20/18 15:17 Vital Signs Reviewed: Yes Diagnostics - Vital Signs Vital Signs Temp Pulse Resp BP Pulse Ox 03/20/18 15:17 98.8 F 101 18 143/87 92 - Laboratory Lab Results: Lab Results 03/20/18 03/20/18 03/20/18 Range/Units 16:57 16:57 16:57 WBC 10.3 (3.5-10.8) 10^3/ul RBC 4.78 (4.00-5.40) 10^6/ul Hgb 14.3 (12.0-16.0) g/dl Hct 43 (35-47) % MCV 91 (80-97) fL MCH 30 (27-31) pg MCHC 33 (31-36) g/dl RDW 15 (10.5-15) % Plt Count 231 (150-450) 10^3/ul MPV 11.6 H (7.4-10.4) um3 Neut % (Auto) 81.8 (38-83) % Lymph % (Auto) 10.7 L (25-47) % Rich % (Auto) 6.3 (0-7) % Eos % (Auto) 0.4 (0-6) % Baso % (Auto) 0.8 (0-2) % Absolute Neuts (auto) 8.5 H (1.5-7.7) 10^3/ul Absolute Lymphs (auto) 1.1 (1.0-4.8) 10^3/ul Absolute Monos (auto) 0.7 (0-0.8) 10^3/ul Absolute Eos (auto) 0 (0-0.6) 10^3/ul Absolute Basos (auto) 0.1 (0-0.2) 10^3/ul Absolute Nucleated RBC 0 10^3/ul Nucleated RBC % 0.1 Large Platelets Present Sodium 139 (135-145) mmol/L Potassium 4.3 (3.5-5.0) mmol/L Chloride 98 L (101-111) mmol/L Carbon Dioxide 30 (22-32) mmol/L Anion Gap 11 (2-11) mmol/L BUN 33 H (6-24) mg/dL Creatinine 1.43 H (0.51-0.95) mg/dL Est GFR ( Amer) 43.1 (>60) Est GFR (Non-Af Amer) 35.6 (>60) BUN/Creatinine Ratio 23.1 H (8-20) Glucose 111 H (70-100) mg/dL Lactic Acid 1.5 (0.5-2.0) mmol/L Calcium 10.6 H (8.6-10.3) mg/dL Total Bilirubin 0.40 (0.2-1.0) mg/dL AST 21 (13-39) U/L ALT 21 (7-52) U/L Alkaline Phosphatase 80 (34-104) U/L C-Reactive Protein 4.71 (<8.01) mg/L Total Protein 7.2 (6.4-8.9) g/dL Albumin 4.1 (3.2-5.2) g/dL Globulin 3.1 (2-4) g/dL Albumin/Globulin Ratio 1.3 (1-3) Lipase 14 (11.0-82.0) U/L Result Diagrams: 03/20/18 16:57 03/20/18 16:57 Lab Statement: Any lab studies that have been ordered have been reviewed, and results considered in the medical decision making process. Abdominal Pain Fem Course/Dx - Course Course Of Treatment: Pt is a 77 year old female presenting with a chief complaint of abd pain. The pt's daughter says she was refusing to eat or drink anything, and she has a hx of kidney failure, UTIs, and dehydration. The pt experienced N/V/D, diaphoresis, and her vitals are currently HR 102 and BP systolic 99. Spoke with Dr. Cramer about admission to the hospital. - Diagnoses Provider Diagnoses: Acute renal insufficiency, Gastroenteritis Discharge - Sign-Out/Discharge Documenting (check all that apply): Patient Departure - admission - Discharge Plan Condition: Stable Disposition: ADMITTED TO [facility] Referrals: Elmer Mcdonald MD [Primary Care Provider] - - Attestation Statements Document Initiated by Scribe: Yes Documenting Scribe: Miracle Murillo Provider For Whom Scribe is Documenting (Include Credential): London Mar MD. Scribe Attestation: Miracle Montano, scribed for London Mar MD. on 03/20/18 at 1829. Consult Consult: Spoke with Dr. Cramer about the pt's admission to the hospital, he will be the accepting physician.
[2018-03-20] MEDS ORDERED: Ondansetron INJ* 2 MG/ML VIAL IV PRN (18:36)
[2018-03-20] MEDS ORDERED: Acetaminophen TAB* 325 MG PO PRN (18:36)
[2018-03-20] MEDS ORDERED: Albuterol 2.5 MG/3 ML NEB.SOL* (0.083%) INH PRN (18:36)
[2018-03-20] MEDS ORDERED: PROCHLORPERAZINE INJ 5 MG/ML 2 ML VIAL IV PRN (18:59)
--- NOTE | 2018-03-20 20:20 | RAD ---
EXAM: CT Abdomen and Pelvis Without Intravenous Contrast CLINICAL HISTORY: 77 years old, female; Pain; Abdominal pain TECHNIQUE: Axial computed tomography images of the abdomen and pelvis without intravenous contrast. All CT scans at this facility use at least one of these dose optimization techniques: automated exposure control; mA and/or kV adjustment per patient size (includes targeted exams where dose is matched to clinical indication); or iterative reconstruction. Coronal and sagittal reformatted images were created and reviewed. COMPARISON: A/P W CT ABD/PEL W 07/09/2015 3:03 PM FINDINGS: Limitations: Image quality is degraded by motion artifact. Lung bases: Unremarkable. No mass. No consolidation. Heart: Dense coronary artery calcifications are present. ABDOMEN: Liver: Unremarkable. Gallbladder and bile ducts: Cholecystectomy clips are present in the gallbladder fossa. Pneumobilia again noted. Pancreas: The pancreas is atrophic. Spleen: Unremarkable. Adrenals: Unremarkable. No mass. Kidneys and ureters: Large cortical cyst and a 3 mm nonobstructing calculus again identified at the upper pole of the right kidney. Smaller hypodensities at the inferior pole likely represent additional cysts, incompletely characterized. No hydronephrosis in either kidney. Stomach and bowel: Diverticula are present in the distal colon. No evidence of diverticulitis. No bowel obstruction. PELVIS: Appendix: No findings to suggest acute appendicitis. Bladder: The urinary bladder is decompressed but contains no calcified stones. Reproductive: Pessary ring remains in place. Small foci of intrauterine air are noted at the right aspect of the uterine fundus. ABDOMEN and PELVIS: Intraperitoneal space: No free air or free fluid. Bones/joints: Irregularities of the lateral aspect of several lower bilateral ribs likely represent motion artifact. Correlate with clinical exam. The bones are diffusely demineralized. Scoliosis and degenerative change present in the lumbar spine. There is grade 1 anterolisthesis of L4 on L5 with moderate degenerative disc disease at this level. Soft tissues: Unremarkable. Vasculature: Mildly dilated upper abdominal aorta measuring approximately 3.5 x 3.8 cm, similar to prior. Distal aortic stent graft remains in place. Lymph nodes: Unremarkable. No enlarged lymph nodes. IMPRESSION: 1. Small foci of intrauterine air are present. In the absence of recent instrumentation, differential considerations include abscess, uterine neoplasm, and fistulous connection with the GI tract. Correlate with clinical history. 2. Irregularities of the lateral aspect of several lower bilateral ribs likely represent motion artifact. Correlate with clinical exam. 3. Resolution of left abdominal wall and pelvic hematoma, seen on prior study. 4. Otherwise, little change since prior study with Distal aortic stent graft in place. 5. Status post cholecystectomy. Coronary artery disease. Other nonemergent findings detailed above.
[2018-03-20] MEDS ORDERED: Heparin VIAL(*) 5000 UNITS/ML VIAL (FIVE THOUSAND) SUBCUT SCH (21:00)
[2018-03-20] MEDS: Melatonin 3 MG TAB PO SCH (21:43)
[2018-03-20] MEDS: NS 0.9% 1000 ML* 1,000 ML IV SCH (22:20)
--- NOTE | 2018-03-21 03:57 | HP ---
HISTORY AND PHYSICAL: DATE OF ADMISSION: 03/20/18 CHIEF COMPLAINT: Nausea, vomiting, and diarrhea. SUBJECTIVE: This is a 77-year-old female, presented to our facility from home after she was at [facility] with what appeared to be UTI and dehydration. She was hospitalized and then was sent to rehab for short term rehabilitation. She left the rehab yesterday morning in a good condition as per the daughter, they went for lunch after the rehab, went home, had uneventful day yesterday. She woke up this morning, feeling nauseous, no appetite and progressed through-out the day into nausea and vomiting, nonbloody , nonbilious. Diarrhea and abdominal pain. She brought her mother to the hospital for further evaluation. In our emergency room, she had her initial workup, which reveals normal white count of 10.3, hemoglobin 14, hematocrit 43, normal platelets, and her chemistry revealed BUN of 33, creatinine of 1.4. Her last creatinine in our record is 0.81. I was able to obtain the discharge summary from [facility], which was from 03/08/18 to 03/12/18 (she went to rehab from 03/12/18 to 03/19/18). She was in the hospital for similar complaint unlike what the daughter mentioned to me. She was admitted for abdominal pain and discomfort after a meal. They did do workup for mesenteric ischemia by ultrasound. They could not do mesenteric angiogram due to renal function and gastric study, which was unremarkable. She also had an EGD, which revealed gastritis and hiatal hernia. Therefore, the patient was discharged with the discharge diagnosis of abdominal pain secondary to gastritis. PAST MEDICAL HISTORY: Significant for: 1. COPD. 2. History of atrial fibrillation, not on anticoagulation. 3. Dementia. 4. Hypertension. 5. Hyperlipidemia. 6. History of DVT. 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 8. History of depression. 9. History of GERD. MEDICATIONS: 1. Potassium 20 mEq daily. 2. Seroquel 25 mg daily. 3. Zocor 20 mg daily. 4. Effexor 75 daily. 5. Vitamin D daily. 6. Lasix 20 mg daily. 7. Hyzaar 100/25 daily. 8. Melatonin 9 mg daily. 9. Toprol-XL 50 daily. 10. Singulair 10 mg daily. 11. Prilosec 20 daily. 12. Lactobacillus 1 tab twice a day. 13. Amlodipine 10 daily. 14. Aspirin 81 mg daily. 15. Calcium with vitamin D. 16. Aricept 10 mg daily. 17. Iron 325 daily. ALLERGIES: She is allergic to: 1. BEE VENOM. 2. LOVENOX and HEPARIN secondary to HIT. 3. GABAPENTIN. FAMILY HISTORY: Significant for Alzheimer's. Mother at age 94. She is . SOCIAL HISTORY: She has history of tobacco use. No alcohol or drug abuse. REVIEW OF SYSTEMS: Positive for nausea, vomiting, abdominal pain, diarrhea. Decreased oral intake. Generalized weakness. No fever or chills. No urinary symptoms. PHYSICAL EXAMINATION GENERAL: She is awake, alert, lying in bed, in no acute respiratory distress. VITAL SIGNS: Her vitals are as follows: Temperature 98.8, pulse 101, respiratory rate 18, satting 92%, pressure 143/87. HEENT: Head: Normocephalic, atraumatic. Dry oral mucosa. NECK: Supple. CARDIOVASCULAR: S1, S2. I do not appreciate any murmur. ABDOMEN: Positive bowel sounds. She has diffuse nonspecific tenderness. No rebound. No guarding. EXTREMITIES: No pedal edema. Palpable peripheral pulse. 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 DIAGNOSTIC STUDIES/LAB DATA: EKG shows atrial fibrillation, slightly rapid ventricular response at the rate of 105. Her chemistry reveal BUN 33, creatinine 1.4, sodium 139, potassium 4.3, glucose 111, calcium 10.6, lactic acid 1.5. CBC: White count 10.3, hemoglobin 14, hematocrit 43, platelet 231. ASSESSMENT AND PLAN: This is a 77-year-old female admitted for nausea, vomiting , acute kidney injury based on her last renal function. 1. Nausea, vomiting most likely secondary to gastroenteritis. I am going to obtain CT abdomen and pelvis without IV contrast to rule out any colitis especially she was in the hospital long-term facility. I am going to obtain C. diff colitis, fecal WBC and stool for culture and Gram stain, on clear liquid and IV fluid hydration. 2. Acute kidney injury. I am going to hold her Lasix. Hold Diovan and HCTZ. Continue her Toprol and we may need to readdress and adjust her pressure medication before she discharges. 3. History of atrial fibrillation. She is not on anticoagulation. She does not qualify for DVT prophylaxis due to history of heparin-induced thrombocytopenia. I will further clarify with the daughter in 24 hours whether or not the patient is candidate versus not candidate for anticoagulation. We will to need further clarify also with PCP. 4. History of dementia. Continue her Aricept and Seroquel. 5. History of hyperlipidemia. Continue her simvastatin. 6. History of gastroesophageal reflux disease. Continue her omeprazole. 7. DVT prophylaxis. 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 [id number]/[facility] #: [id number] [facility]
[2018-03-21 06:15] LABS: Urine Appearance Cloudy; Urine Blood Negative (Negative); Urine Color Yellow; Urine Ketones Negative (Negative); Urine Protein Negative (Negative); Urine Red Blood Cell Trace(0-2/hpf) (Absent); Urine Specific Gravity 1.014 (1.010-1.030); Urine Urobilinogen Negative (Negative); Urine White Blood Cell 2+(11-20/hpf) (Absent)
[2018-03-21 07:17] LABS: Hematocrit 38 % (35-47); Hemoglobin 12.5 g/dl (12.0-16.0); Mean Corpuscular HGB Conc 33 g/dl (31-36); Mean Corpuscular Hemoglobin 30 pg (27-31); Mean Corpuscular Volume 92 fL (80-97); Mean Platelet Volume 11.6 um3 (7.4-10.4); Platelet Count 190 10^3/ul (150-450); Red Blood Count 4.19 10^6/ul (4.00-5.40); Red Cell Distribution Width 15 % (10.5-15); White Blood Count 7.4 10^3/ul (3.5-10.8)
[2018-03-21 07:39] LABS: EGFR Non-African American 43.1 (>60)
[2018-03-21] MEDS: NS 0.9% 1000 ML* 1,000 ML IV SCH (07:42)
[2018-03-21 09:58] LABS: ABS Basophils 0.1 10^3/ul (0-0.2); ABS Eosinophils 0.1 10^3/ul (0-0.6); ABS Lymphocytes 1.3 10^3/ul (1.0-4.8); ABS Monocytes 0.8 10^3/ul (0-0.8); ABS Neutrophils 5.1 10^3/ul (1.5-7.7); ABS Nucleated RBC 0 10^3/ul; Eosinophil % 1.5 % (0-6); Lymphocyte % 18.1 % (25-47); Nucleated Red Blood Cells % 0.1
[2018-03-21] MEDS: Omeprazole CAP* 20 MG PO SCH (10:23)
[2018-03-21] MEDS: CMCS Venlafaxine TAB (NF) 25 MG TAB PO SCH (10:23)
[2018-03-21] MEDS: Atorvastatin* 10 MG TAB PO SCH (10:24)
[2018-03-21] MEDS: Aspirin EC TAB* 81 MG TAB.EC PO SCH (10:24)
[2018-03-21] MEDS: Montelukast Sodium TAB* 10 MG PO SCH (10:24)
[2018-03-21] MEDS: Ferrous Sulfate TAB* 325 MG PO SCH (10:24)
[2018-03-21] MEDS: QUEtiapine TAB* 25 MG PO SCH (10:24)
[2018-03-21] MEDS: Metoprolol Succinate XL TAB* 50 MG PO SCH (10:24)
[2018-03-21] MEDS: amLODIPine TAB* 5 MG PO SCH (10:24)
[2018-03-21] MEDS: Donepezil TAB* 5 MG PO SCH (10:24)
--- NOTE | 2018-03-21 12:22 | PN ---
Subjective Date of Service: 03/21/18 Interval History: Patient seen this morning. Much more awake and much improved. Denies any vomiting. Improved abdominal pain still have diarrhea and mild abdominal pain but much better when compared to yesterday Family History: Unchanged from Admission Social History: Unchanged from Admission Past Medical History: Unchanged from Admission Objective Active Medications: Acetaminophen (Tylenol Tab*) 650 mg PO Q4H PRN PRN Reason: FEVER/PAIN Albuterol (Ventolin 2.5 Mg/3 Ml Neb.Gianna*) 2.5 mg INH [id number] AWAKE PRN PRN Reason: sob/wheezing Amlodipine Besylate (Norvasc Tab*) 10 mg PO DAILY [facility] Last Admin: 03/21/18 10:24 Dose: 10 mg Aspirin (Aspirin Ec Tab*) 81 mg PO DAILY [facility] Last Admin: 03/21/18 10:24 Dose: 81 mg Atorvastatin Calcium (Lipitor*) 10 mg PO DAILY [facility] Last Admin: 03/21/18 10:24 Dose: 10 mg Donepezil HCl (Aricept Tab*) 10 mg PO DAILY [facility] Last Admin: 03/21/18 10:24 Dose: 10 mg Ferrous Sulfate (Ferrous Sulfate Tab*) 325 mg PO DAILY [facility] Last Admin: 03/21/18 10:24 Dose: 325 mg Sodium Chloride (Ns 0.9% 1000 Ml*) 1,000 mls @ 100 mls/hr IV PER RATE [facility] Last Admin: 03/21/18 07:42 Dose: 100 mls/hr Melatonin (Melatonin) 9 mg PO BEDTIME [facility]; Protocol Last Admin: 03/20/18 21:43 Dose: 9 mg Metoprolol Succinate (Toprol Xl Tab*) 50 mg PO DAILY [facility] Last Admin: 03/21/18 10:24 Dose: 50 mg Montelukast Sodium (Singulair Tab*) 10 mg PO DAILY [facility] Last Admin: 03/21/18 10:24 Dose: 10 mg Omeprazole (Prilosec Cap*) 20 mg PO DAILY [facility] Last Admin: 03/21/18 10:23 Dose: 20 mg Prochlorperazine Edisylate (Compazine Inj*) 5 mg IV Q6H PRN PRN Reason: NAUSEA/VOMITING Quetiapine Fumarate (Seroquel Tab*) 25 mg PO DAILY [facility] Last Admin: 03/21/18 10:24 Dose: 25 mg Venlafaxine HCl (Effexor Tab (Nf)) 75 mg PO DAILY [facility]; Protocol Last Admin: 03/21/18 10:23 Dose: 75 mg Vital Signs - 8 hr 03/21/18 03/21/18 07:56 08:00 Temperature 98.3 F Pulse Rate 71 Respiratory 16 Rate Blood Pressure 126/65 (mmHg) O2 Sat by Pulse 90 Oximetry Oxygen Devices in Use Now: None Appearance: pleasent. confused to time and place. no acute event Eyes: No Scleral Icterus, - - EOMI Ears/Nose/Mouth/Throat: Clear Oropharnyx, Mucous Membranes Moist Neck: NL Appearance and Movements; NL JVP, Trachea Midline Respiratory: Symmetrical Chest Expansion and Respiratory Effort, Clear to Auscultation Cardiovascular: NL Sounds; No Murmurs; No JVD Abdominal: NL Sounds; No Tenderness; No Distention, - - non specific tenderness Extremities: No Edema Neurological: - - disoriented to person and time Result Diagrams: 03/21/18 06:46 03/21/18 06:46 Additional Lab and Data: Lab Results 03/20/18 03/20/18 03/20/18 Range/Units 16:57 16:57 16:57 WBC 10.3 (3.5-10.8) 10^3/ul RBC 4.78 (4.00-5.40) 10^6/ul Hgb 14.3 (12.0-16.0) g/dl Hct 43 (35-47) % MCV 91 (80-97) fL MCH 30 (27-31) pg MCHC 33 (31-36) g/dl RDW 15 (10.5-15) % Plt Count 231 (150-450) 10^3/ul MPV 11.6 H (7.4-10.4) um3 Neut % (Auto) 81.8 (38-83) % Lymph % (Auto) 10.7 L (25-47) % Wallace % (Auto) 6.3 (0-7) % Eos % (Auto) 0.4 (0-6) % Baso % (Auto) 0.8 (0-2) % Absolute Neuts (auto) 8.5 H (1.5-7.7) 10^3/ul Absolute Lymphs (auto) 1.1 (1.0-4.8) 10^3/ul Absolute Monos (auto) 0.7 (0-0.8) 10^3/ul Absolute Eos (auto) 0 (0-0.6) 10^3/ul Absolute Basos (auto) 0.1 (0-0.2) 10^3/ul Absolute Nucleated RBC 0 10^3/ul Nucleated RBC % 0.1 Large Platelets Present Sodium 139 (135-145) mmol/L Potassium 4.3 (3.5-5.0) mmol/L Chloride 98 L (101-111) mmol/L Carbon Dioxide 30 (22-32) mmol/L Anion Gap 11 (2-11) mmol/L BUN 33 H (6-24) mg/dL Creatinine 1.43 H (0.51-0.95) mg/dL Est GFR ( Amer) 43.1 (>60) Est GFR (Non-Af Amer) 35.6 (>60) BUN/Creatinine Ratio 23.1 H (8-20) Glucose 111 H (70-100) mg/dL Lactic Acid 1.5 (0.5-2.0) mmol/L Calcium 10.6 H (8.6-10.3) mg/dL Total Bilirubin 0.40 (0.2-1.0) mg/dL AST 21 (13-39) U/L ALT 21 (7-52) U/L Alkaline Phosphatase 80 (34-104) U/L C-Reactive Protein 4.71 (<8.01) mg/L Total Protein 7.2 (6.4-8.9) g/dL Albumin 4.1 (3.2-5.2) g/dL Globulin 3.1 (2-4) g/dL Albumin/Globulin Ratio 1.3 (1-3) Lipase 14 (11.0-82.0) U/L Microbiology and Other Data: Microbiology 03/21/18 10:01 Stool Gross Appearance - Final Stool C. difficile DNA Amplification - Final 027 Presumptive NEGATIVE Toxigenic C.diff NEGATIVE 03/20/18 19:58 Nasal Screen MRSA (PCR) - Final Nasal Mrsa Detected Assess/Plan/Problems-Billing Assessment: 77 year male admitted for abdominal pain and nausea/vomit and dehydrations. On IVF. CT abdomen showed intrauterine air possible abscess/mass and or GI fistula. - Patient Problems (1) Abdominal pain Current Visit: No Status: Acute Priority: High Onset Date: 06/28/14 Code (s): R10.9 - UNSPECIFIED ABDOMINAL PAIN SNOMED Code(s): 39383679 Comment: - Her pain associated with Nausea, vomit and diarrhea was thought to be more like to Gastroenteritis exacerbated by her BP med and possible hypotension. - Admitted to floor, IVF and held her diuretics (Diovan,HCTZ; Lasix) - CT scan of abdomen did show intrauterine air. I left a consult for Dr. Sutton for input. - Awaiting stool studies, for C-diff, Cutlure and Fecal WBC. - I will advance to regular as tolerated. (2) Acute kidney injury Current Visit: No Status: Acute Priority: Medium Code(s): N17.9 - ACUTE KIDNEY FAILURE, UNSPECIFIED SNOMED Code(s): 07651480 Comment: Likely secondary to volume depletion. I will keep her diuretic on hold for today and may resume some in am (keep her HCTZ;Lasix and Diovan on hold as her BP just normal off them. D/C IVF and advance diet. her renal function improved (3) Afib Current Visit: No Status: Acute Code(s): I48.91 - UNSPECIFIED ATRIAL FIBRILLATION SNOMED Code(s): 90746211 Comment: Not on anticoagulation due to her abdominal sheet hematoma (4) Dementia Current Visit: No Status: Chronic Priority: Medium Code(s): F03.90 - UNSPECIFIED DEMENTIA WITHOUT BEHAVIORAL DISTURBANCE SNOMED Code(s): 34412353 Comment: Continue donepezil Intermittently confused No behavioral concerns (5) GERD (gastroesophageal reflux disease) Current Visit: No Status: Chronic Priority: Medium Onset Date: 06/28/14 Code(s): K21.9 - GASTRO-ESOPHAGEAL REFLUX DISEASE WITHOUT ESOPHAGITIS SNOMED Code(s): 997632770 Comment: Stable-continue omeprazole.
--- NOTE | 2018-03-21 14:38 | RAD ---
INDICATION: Intrauterine air. COMPARISON: Correlation is made with a prior CT of the abdomen and pelvis from March 20, 2018. TECHNIQUE: Multiple real-time transabdominal images of the pelvis were obtained. The patient was unable to tolerate transvaginal imaging which was attempted. FINDINGS: Uterus is normal in size and measured 7.7 x 6.6 x 6.0 cm. The endometrial echo measured 0.3 cm in thickness. Echogenic foci are noted within the fundus of the uterus which would appear to represent the air noted on the prior CT study although no fluid collection or abscess is appreciated. The ovaries were not visualized. No free intraperitoneal fluid is seen. IMPRESSION: ECHOGENIC FOCI IN THE FUNDUS OF THE UTERUS CORRELATING WITH AIR NOTED ON THE PRIOR CT STUDY. NO FLUID COLLECTION IS SEEN.
[2018-03-21] MEDS: Melatonin 3 MG TAB PO SCH (21:20)
--- NOTE | 2018-03-21 23:30 | CONS ---
CONTINUATION ADDENDUM NOW INCLUDED ON THIS REPORT CONSULTATION NOTE: DATE OF CONSULT: 03/21/18 REASON FOR CONSULT: Air visualized on CT scan of the uterus. HISTORY OF PRESENT ILLNESS: The patient is a 77-year-old 4, para 4, who is demented and a poor historian, not able to offer her entire medical history, but does have a granddaughter who is aware of some of her medical history. The patient comes in from a rehab unit, was feeling ill and had abdominal pain in that rehab unit, and was transferred to [facility] for further evaluation. Of note, 3 weeks prior, she did have an admission at [place], was diagnosed with possible urosepsis and possible small bowel ischemia; however, all of that was ruled out. The patient was sent to the rehab facility and within 48 hours of being in the rehab facility was transferred back to the hospital, feeling unwell with blood pressure issues. CONTINUATION ADDENDUM: PAST MEDICAL HISTORY: 1. Dementia. 2. COPD. 3. History of AFib. 4. Hypertension. 5. History of DVT. 6. History of GERD. 7. History of hyperlipidemia. PAST SURGICAL HISTORY: Noted for a laparoscopic cholecystectomy in 2014. MEDICATIONS: Include: 1. Seroquel 25 mg a day. 2. Potassium 20 mEq daily. 3. Zocor 20 mg daily. 4. Effexor 75 mg daily. 5. Vitamin D. 6. Lasix 20 mg daily. 7. She is on Aricept 10 mg daily. 8. Aspirin 81 mg daily. 9. Amlodipine 10 mg daily. 10. Prilosec 20 mg daily. 11. Singulair 10 mg daily. 12. Toprol-XL 50 mg daily. 13. Hyzaar 100/25 daily. ALLERGIES: Include LOVENOX, HEPARIN, GABAPENTIN, BEE VENOM. SOCIAL HISTORY: No current drug or alcohol abuse. She lives in a rehab facility at present. 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 The patient has longstanding use of pessary as far back as [address] evaluations here. The patient cannot recall the name of her road worker. Past obstetric, had 4 vaginal deliveries. REVIEW OF SYSTEMS: Denies fevers or chills. Denies difficulty with urination or blood in her urine. Denies abnormal vaginal discharge. Denies any diarrhea or abdominal pain at present. IMAGING: Ultrasound, CT scan findings reveal small foci of intrauterine air to the right of the fundus. No adnexal masses seen. She had a pelvic ultrasound that was a poor image and study; however, there was a foci near the fundus of the uterus correlating with the air noted on prior CT with no fluid collections , endometrial thickness was noted to be 3 mm and ovaries could not be seen on pelvic ultrasound. PHYSICAL EXAMINATION: Temp is 97.5, pulse is 70, blood pressure 108/64, respirations 20, O2 sats 96%. Constitutional: She is a pleasant female, not oriented to current hospital, poor historian. Abdomen is nontender. No masses. No rebounds and no guarding. Pelvic Exam: External genitalia without lesions. Vagina, mucosa is smooth, no masses appreciated. There is a ring support pessary in place in the vagina, intact with minimal discharge and no evidence of blood. Uterus is midposition and nontender to palpation and adnexa nontender. ASSESSMENT AND PLAN: The patient is a 77-year-old with a small foci on the right fundus of what appears to be air. Given the finding, I have recommended the patient follow up with a repeat evaluation and scan with her primary road worker. There is no evidence of need for intervention acutely at this point. The patient does not appear to be septic or have any illness related to this incidental finding. This all was reviewed with the patient's granddaughter who will assure reach out to the primary health decision maker for this patient, her daughter, and this was also reviewed with the hospitalist service with recommendation to follow up on an outpatient basis. There is no evidence of sepsis or infection at this point in time and evaluation can be performed at outpatient setting. [id number]/CPS #: [id number]- [id number]/CPS #: [id number] NANNETTE
--- NOTE | 2018-03-21 23:38 | CONS ---
CONSULTATION REPORT: ADDENDUM: PAST MEDICAL HISTORY: Obviously, 1. Dementia. 2. COPD. 3. History of AFib. 4. Hypertension. 5. History of DVT. 6. History of GERD. 7. History of hyperlipidemia. PAST SURGICAL HISTORY: Noted for a laparoscopic cholecystectomy in 2014. MEDICATIONS: Include: 1. Seroquel 25 mg a day. 2. Potassium 20 mEq daily. 3. Zocor 20 mg daily. 4. Effexor 75 mg daily. 5. Vitamin D. 6. Lasix 20 mg daily. 7. She is on Aricept 10 mg daily. 8. Aspirin 81 mg daily. 9. Amlodipine 10 mg daily. 10. Prilosec 20 mg daily. 11. Singulair 10 mg daily. 12. Toprol-XL 50 mg daily. 13. Hyzaar 100/25 daily. ALLERGIES: Include LOVENOX, HEPARIN, GABAPENTIN, BEE VENOM. SOCIAL HISTORY: No current drug or alcohol abuse. She lives in a rehab facility at present. 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 The patient has longstanding use of pessary as far back as [address] evaluations here. The patient cannot recall the name of her combat systems officer. Past obstetric, had 4 vaginal deliveries. REVIEW OF SYSTEMS: Denies fevers or chills. Denies difficulty with urination or blood in her urine. Denies abnormal vaginal discharge. Denies any diarrhea or abdominal pain at present. IMAGING: Ultrasound, CT scan findings reveal small foci of intrauterine air to the right of the fundus. No adnexal masses seen. She had a pelvic ultrasound that was a poor image and study; however, there was a foci near the fundus of the uterus correlating with the air noted on prior CT with no fluid collections , endometrial thickness was noted to be 3 mm and ovaries could not be seen on pelvic ultrasound. PHYSICAL EXAMINATION: Temp is 97.5, pulse is 70, blood pressure 108/64, respirations 20, O2 sats 96%. Constitutional: She is a pleasant female, not oriented to current hospital, poor historian. Abdomen is nontender. No masses. No rebounds and no guarding. Pelvic Exam: External genitalia without lesions. Vagina, mucosa is smooth, no masses appreciated. There is a ring support pessary in place in the vagina, intact with minimal discharge and no evidence of blood. Uterus is midposition and nontender to palpation and adnexa nontender. ASSESSMENT AND PLAN: The patient is a 77-year-old with a small foci on the right fundus of what appears to be air. Given the finding, I have recommended the patient follow up with a repeat evaluation and scan with her primary combat systems officer. There is no evidence of need for intervention acutely at this point. The patient does not appear to be septic or have any illness related to this incidental finding. This all was reviewed with the patient's granddaughter who will assure reach out to the primary health decision maker for this patient, her daughter, and this was also reviewed with the hospitalist service with recommendation to follow up on an outpatient basis. There is no evidence of sepsis or infection at this point in time and evaluation can be performed at outpatient setting. [id number]/CPS #: [id number] MTDD
[2018-03-22 07:38] LABS: EGFR Non-African American 53.1 (>60)
[2018-03-22] MEDS: Aspirin EC TAB* 81 MG TAB.EC PO SCH (08:32)
[2018-03-22] MEDS: CMCS Venlafaxine TAB (NF) 25 MG TAB PO SCH (08:33)
[2018-03-22] MEDS: Atorvastatin* 10 MG TAB PO SCH (08:33)
[2018-03-22] MEDS: Metoprolol Succinate XL TAB* 50 MG PO SCH (08:33)
[2018-03-22] MEDS: amLODIPine TAB* 5 MG PO SCH (08:33)
[2018-03-22] MEDS: Ferrous Sulfate TAB* 325 MG PO SCH (08:33)
[2018-03-22] MEDS: Donepezil TAB* 5 MG PO SCH (08:33)
[2018-03-22] MEDS: Omeprazole CAP* 20 MG PO SCH (08:33)
[2018-03-22] MEDS: QUEtiapine TAB* 25 MG PO SCH (08:33)
[2018-03-22] MEDS: Montelukast Sodium TAB* 10 MG PO SCH (08:33)
[2018-03-22 17:13] VITALS: BP 143/50
--- NOTE | 2018-03-23 11:36 | DS ---
CC: Dr. Jimenez DISCHARGE SUMMARY: DATE OF ADMISSION: 03/20/18 DATE OF DISCHARGE: 03/22/18 FINAL DISCHARGE DIAGNOSES: 1. Abdominal pain, nausea, vomiting secondary to gastroenteritis. 2. Hypotension and dehydration secondary to hypovolemia and diuretic. 3. Atrial fibrillation. 4. Dementia. 5. Chronic obstructive pulmonary disease. 6. Intrauterine free air. HOSPITAL COURSE: The patient was admitted to [facility] on 03/20/18 one day after she was released from her care home, where she was getting therapy posthospitalization from [place] at t he end of February. The patient was admitted and on admission, she was admitted for increased nausea, vomiting associated with diarrhea, dizziness, lightheadedness. She was found to be slightly hypotens milagros with the systolic in the 90s and with prerenal azotemia as manifested in her chemistry of BUN 23 and creatinine of 1.4. It was noted that she was on multiple blood pressure medications including Di ovan, hydrochlorothiazide and losartan. Her losartan and hydrochlorothiazide and furosemide were dis continued. She was placed on IV fluid. The patient was followed following 2 days. She improved and the next day, was able to tolerate p.o. and even day #2 hospitalization, she was much more awake, al ert, coherent, followed simple commands, hence she was deemed stable for discharge with recommendatio n to minimize her blood pressure medication to avoid precipitation, dehydration, and hypovolemia and hypotension. Incidentally, when she was in the emergency room, a CT scan was obtained for her abdomi nal pain and it did show intrauterine air suspicious for either necrosis, mass, or colorectal fistula . Therefore, RAIL CREW MEMBER was consulted and Dr. Sutton did see the patient and recommended for outpatient fo llowup with her RAIL CREW MEMBER to rule out intrauterine mass. At the same time, I did discuss the case with Dr. Moise, GI, and made a referral for outpatient GI for her intrauterine free air to rule out colonic and uterine fistula. Therefore, on evaluation today and given her clinical exam, she was deemed sta ble for discharge. PHYSICAL EXAMINATION: Vital Signs: Temperature 97.9. Pulse 64. Respiratory rate 17. Saturation 93%. Blood pressure 115/72. Generally, she is awake, alert, pleasant, disoriented t o place and time. Head and Neck: Normocephalic, atraumatic. Supple. Lungs: Clear to auscultation . Cardiovascular: S1, S2. Irregularly irregular. Abdomen: Positive bowel sounds, soft, nontender, nondistended. PRODUCE BUYER: There is no motor or focal sensory deficit. She is ambulating. DIAGNOSTIC STUDIES/LAB DATA: Inpatient, she had abdominal CT, 03/20/18, did not show any evidence of colitis, it did show incidental intrauterine free air and resolution of which appears to be abdomina l wall hematoma in the past. Pelvic ultrasound, transvaginal, was not tolerated, hence was just the pelvic, it shows echogenic foc i in the fundus of the uterus. Recommended RAIL CREW MEMBER for which she was seen and evaluated by Dr. Sutton. Diagnostic, her chemistry, significant for BUN of 33, down to 17 today; creatinine 1.4, down to 1.0 t marion. CBC fairly unremarkable. INPATIENT CONSULT: Dr. Silvina Sutton for RAIL CREW MEMBER. DISCHARGE MEDICATIONS: 1. Iron 325 mg daily. 2. Aricept 10 mg daily. 3. Vitamin D with calcium. 4. Amlodipine 10 daily. 5. Aspirin 81 daily. 6. Omeprazole 20 daily. 7. Lactobacillus 1 tab b.i.d. 8. Singulair 10 daily. 9. Metoprolol 50 mg daily. 10. Melatonin 9 at bedtime. 11. Vitamin D 2000 daily. 12. Effexor 75 daily. 13. Simvastatin 20 daily. 14. Seroquel 25 daily. The patient to discontinue her losartan/hydrochlorothiazide 100/25. Discontinue her Lasix. Discontinue her potassium. RECOMMENDATIONS: 1. The patient to adhere to heart-healthy diet. 2. Follow up with her primary care in 1 to 2 weeks. 3. Follow up with her RAIL CREW MEMBER, , within 1 to 2 weeks to be arranged with her primary care. Fol low up with Dr. Moise, 04/09/18, 2:30 p.m. 4. Follow up with her primary, 04/01/18. [id number]/[id number] #: [id number]
== END 2018-03-22 17:16 | disposition home or self-care (01) ==
LOC: ED 15:04 → MED 18:36
PROVIDERS: ADMIT Internal Medicine; ATTEND Internal Medicine
DX: E86.0 Dehydration (principal); K52.9 Noninfective gastroenteritis and colitis, unspecified; I95.9 Hypotension, unspecified; I48.91 Unspecified atrial fibrillation; F03.90 Unspecified dementia, unspecified severity, without behavioral disturbance, psychotic disturbance, mood disturbance, and anxiety; J44.9 Chronic obstructive pulmonary disease, unspecified; Z79.82 Long term (current) use of aspirin; Z79.899 Other long term (current) drug therapy; Z88.8 Allergy status to other drugs, medicaments and biological substances; Z88.2 Allergy status to sulfonamides; F32.9 Major depressive disorder, single episode, unspecified; N17.9 Acute kidney failure, unspecified; F17.210 Nicotine dependence, cigarettes, uncomplicated; R10.9 Unspecified abdominal pain
CPT/HCPCS: 36415; 74176; 76856; 80048; 80053; 80076; 81003; 81015; 82150; 83605; 83630; 83690; 83735; 84100; 85025; 86140; 87045; 87046; 87086; 87493; 87641; 87899; 96361; 96374; 99282; A9270-GY; G0378; J2405

== ENCOUNTER 2018-05-22 11:20 | Inpatient (IN) | payer MEDICARE ==
--- NOTE | 2018-05-22 11:31 | UC ---
Seizure HPI - HPI Summary HPI Summary: Level 5 caveat: Unable to obtain complete HPI due to dementia The pt is a 77 y/o female BIBA to [facility] s/p a seizure an hour ago. As per her daughter, the pt fell off the kitchen table while peeling apples. EMS reports that the pt was alert but disoriented at the scene and incontinent of urine. The pt denies abd pain, CP, and RAMOS. - History Of Current Complaint Chief Complaint: EDSeizure Stated Complaint: SEIZURE Time Seen by Provider: 05/22/18 11:25 Hx Obtained From: Patient, Family/Sales Associate Key Holder - Daughter, EMS Hx From Patient Unobtainable Due To: Dementia Onset/Duration: Sudden Onset, Resolved Associated Signs And Symptoms: Incontinence Of Bladder - Allergies/Home Medications Allergies/Adverse Reactions: Allergies Allergy/AdvReac Type Severity Reaction Status Date / Time enoxaparin Allergy Unknown HIT Verified 03/20/18 23:24 heparin Allergy Unknown HIT Verified 03/20/18 23:24 gabapentin AdvReac Unknown confusion Verified 03/20/18 23:24 ENVIRONMENTAL Allergy Mild SEASONAL Uncoded 03/20/18 23:14 Sulfa Drug Allergy Mild Unknown Uncoded 03/20/18 23:24 Reaction Details Bee Venom Allergy Unknown Unknown Uncoded 03/20/18 23:24 Reaction Details Home Medications: Home Medications Acetaminophen [Acetaminophen Extra Strength] 1,000 mg PO Q6HR PRN 05/22/18 [ History Confirmed 05/22/18] Amiodarone TAB* [Cordarone Tab*] 100 mg PO DAILY 05/22/18 [History Confirmed ] Cholecalciferol TAB* [Vitamin D TAB*] 3,000 units PO DAILY 05/22/18 [History Confirmed 05/22/18] Melatonin (NF) 9 mg PO BEDTIME 05/22/18 [History Confirmed 05/22/18] PMH/Surg Hx/FS Hx/Imm Hx Previously Healthy: No - Level 5 caveat: Unable to obtain complete Mhx due to dementia Cardiovascular History: Cardiac Disease, Hypertension, Deep Vein Thrombosis Respiratory History: COPD Neurological History: Dementia Other History Of: Anticoagulant Therapy - Currently on coumadin, Heparin causes thrombocytopenia - Surgical History Surgical History: Yes Surgery Procedure, Year, and Place: TUBAL,TMJ,CATARACTS BILAT,KNEE RIGHT REPLACEMENT,AAA, SANDEEP/APPY - Family History Known Family History: Positive: Other - Alzheimer's (mother) - Social History Occupation: Retired Lives: With Family Alcohol Use: None Substance Use Type: None Smoking Status (MU): Unknown if Ever Smoked Type: Cigarettes Amount Used/How Often: 1-2 ppd Length of Time of Smoking/Using Tobacco: 50 years Have You Smoked in the Last Year: - pt is unable to recall Household Exposure Type: Cigarettes - Immunization History Most Recent Influenza Vaccination: fall 2015 Most Recent Tetanus Shot: 2011 Most Recent Pneumonia Vaccination: 2011 Review of Systems All Other Systems Reviewed And Are Negative: No Cardiovascular: Negative: Chest Pain Gastrointestinal: Negative: Abdominal Pain Neurological: Positive: Other - Seizure. Negative: Headache - Comments Additional Review of Systems Comments: Level 5 caveat: Unable to obtain complete ROS due to dementia Physical Exam - Summary Physical Exam Summary: Level 5 caveat: Unable to obtain complete PE due to dementia Appearance: Well-appearing, Well-nourished, lying in bed comfortably Skin: Warm, dry, no obvious rash Eyes: sclera anicteric, no conjunctival pallor ENT: mucous membranes moist, pharynx appears normal Neck: Supple, nontender Respiratory: Clear to auscultation, no signs of respiratory distress Cardiovascular: Irregular heart rate . No murmurs. Normal distal pulses in tibial and radial bilaterally. Abdomen: Soft, nontender, normal active bowel sounds present Musculoskeletal: Normal, Strength/ROM Intact Neurological: Alert and oriented only to person, patient appears confused and is oriented only to person, speech is fluent and appropriate Psychiatric: affect is normal, does not appear anxious or depressed GCS= 15 Triage Information Reviewed: Yes Vital Signs Reviewed: Yes Diagnostics - Laboratory Diagnostic Studies Completed/Ordered: Brain CT. IMPRESSION: 1. SIGNIFICANTLY LIMITED STUDY DUE TO MOTION ARTIFACT, NO GROSS EVIDENCE FOR ACUTE FINDING. 2. BILATERAL AREAS OF ENCEPHALOMALACIA WITHIN THE TEMPORAL LOBES MOST CONSISTENT WITH OLD INFARCTS. 3. CONSIDER REPEAT IMAGING ONCE THE PATIENT IS CLINICALLY ABLE. The ED physician reviewed this radiology report. - EKG Summary of EKG Findings: Atrial fibrillation at 89 bpm. LVH with secondary repolarization abnormality Re-Evaluation - Re-Evaluation First Eval Re-Evaluation Time: 13:20 Change: Unchanged - The pt is in a post-ictal state. Seizure Course/Dx - Course Course Of Treatment: A demented 77 year-old F presents to the ED with a CC of a seizure 1 hour BAG CUTTER. A physical exam revealed confusion, an irregular heart beat and orientation to person only. An EKG reveals Afib and LVH. A brain CT is unremarkable. The pt had another seizure while in the ED and a re- evaluation revealed a post0-ictal state. Labs reveal elevated lactic acid. In the ED course, pt was given Phenytoin 1000 mg in 250 ml N.s 0.9% IV, Ketamine 75 mg IV, Labetalol 20 mg IV and Lorazepam 1 mg IV which improved the symptoms. I discussed the care of the pt with the hospitalist who agreed to admit the pt. Allergies noted. - Differential Dx/Diagnosis Differential Diagnosis/HQI/PQRI: CVA, Drug Toxicity, Encephalitis, Metabolic Disorder, New Onset Seizure Provider Diagnoses: New Onset Seizures - Physician Notification/Consults Discussed Patient Care With: Kayleigh Varma - Hospitalist Time Discussed With Above Provider: 15:15 Instructed by Provider To: Admit As Inpatient Discharge - Sign-Out/Discharge Documenting (check all that apply): Patient Departure - Admit - Discharge Plan Condition: Guarded Disposition: ADMITTED TO [facility] - Billing Disposition and Condition Condition: GUARDED Disposition: Admitted to [facility] - Attestation Statements Document Initiated by Morris: Yes Documenting Scribe: Amena Clemente Provider For Whom Morris is Documenting (Include Credential): Dr. Jewel Fu MD Scribe Attestation: Amena Montano , scribed for Dr. Jewel Fu MD on 05/24/18 at 2244. Scribe Documentation Reviewed: Yes Provider Attestation: The documentation as recorded by the scribeAmena accurately reflects the service I personally performed and the decisions made by me, Dr. Jewel Fu MD
[2018-05-22 12:13] LABS: Urine Appearance Clear; Urine Blood Negative (Negative); Urine Color Yellow; Urine Ketones Negative (Negative); Urine Protein 2+(100 mg/dL) (Negative); Urine Red Blood Cell Trace(0-2/hpf) (Absent); Urine Specific Gravity 1.013 (1.010-1.030); Urine Urobilinogen Negative (Negative); Urine White Blood Cell Trace(0-5/hpf) (Absent)
[2018-05-22] MEDS ORDERED: LORazepam INJ* 2 MG/ML 1 ML VIAL ONE (13:01)
[2018-05-22] MEDS ORDERED: LORazepam INJ* 2 MG/ML 1 ML VIAL IV PUSH ONE (13:03)
[2018-05-22] MEDS ORDERED: Phenytoin IV(*) 1,000 MG in NS 0.9% 250 ML* 180 ML IV ONE (13:23)
[2018-05-22 13:29] LABS: Hematocrit 44 % (35-47); Hemoglobin 13.9 g/dl (12.0-16.0); Mean Corpuscular HGB Conc 32 g/dl (31-36); Mean Corpuscular Hemoglobin 29 pg (27-31); Mean Corpuscular Volume 92 fL (80-97); Mean Platelet Volume 11.5 fL (7.4-10.4); Platelet Count 234 10^3/ul (150-450); Red Blood Count 4.76 10^6/ul (4.00-5.40); Red Cell Distribution Width 16 % (10.5-15); White Blood Count 13.6 10^3/ul (3.5-10.8)
[2018-05-22 13:40] LABS: INR 0.86 (0.77-1.02)
[2018-05-22] MEDS ORDERED: KETAMINE HCL* 50 MG/ML 10 ML VIAL IV ONE (14:00)
[2018-05-22 14:22] LABS: ABS Basophils 0.1 10^3/ul (0-0.2); ABS Eosinophils 0 10^3/ul (0-0.6); ABS Lymphocytes 1.1 10^3/ul (1.0-4.8); ABS Monocytes 0.4 10^3/ul (0-0.8); ABS Neutrophils 11.9 10^3/ul (1.5-7.7); ABS Nucleated RBC 0 10^3/ul; Eosinophil % 0.1 % (0-6); Lymphocyte % 8.3 % (25-47); Nucleated Red Blood Cells % 0
[2018-05-22] MEDS ORDERED: Heparin VIAL(*) 5000 UNITS/ML VIAL (FIVE THOUSAND) ONE (14:31)
[2018-05-22] MEDS ORDERED: Labetalol IV* 5 MG/ML 20 ML VIAL IV PUSH ONE (14:59)
[2018-05-22] MEDS ORDERED: Ondansetron INJ* 2 MG/ML VIAL IV PRN (15:50)
[2018-05-22] MEDS ORDERED: Acetaminophen TAB* 325 MG PO PRN (15:50)
[2018-05-22] MEDS ORDERED: Phenytoin IV(*) 100 MG in NS 0.9% 50 ML* 18 ML IV SCH (16:00)
[2018-05-22] MEDS ORDERED: hydrALAZINE IV* 20 MG/ML VIAL IV SLOW PU PRN (16:00)
[2018-05-22] MEDS ORDERED: Albuterol 2.5 MG/3 ML NEB.SOL* (0.083%) INH PRN (16:15)
--- NOTE | 2018-05-22 20:31 | HP ---
CC: Dr. Mcdonald; Dr. Hou * HISTORY AND PHYSICAL: DATE OF ADMISSION: 05/22/18 PRIMARY CARE PROVIDER: Dr. Mcdonald. ATTENDING PHYSICIAN WHILE IN THE HOSPITAL: Kayleigh White MD * (report dictated by Rian Asif NP). CHIEF COMPLAINT: 1. Altered mental status. 2. Seizure. HISTORY OF PRESENT ILLNESS: I would like to preface the report by saying that she is postictal right now, she is really unable to give much history; however, the daughter is there and is able to give me some good history, so apparently today, Ms. Tovar was sitting at the tablet peeling apples with her children and she had an episode where she fell forward and she started shaking her arms and she was incontinent of urine. It lasted about a minute to a minute and a half. Prior to this episode, she was having garbled speech. This happened around 10:30 morning. The family was concerned that she had a seizure and they called 911 and brought her into the ER at that point. There have been no reports of head trauma in her history, no reports of seizures ever. There is a history of dementia along with AFib, not on anticoagulation; history of hypertension; hyperlipidemia; DVT; COPD; and GERD. Of note, she was here about 2 months ago and she was hypotensive and she was on several blood pressure meds and her meds were reduced on discharge. When she presented today, her blood pressures were in the 200 range systolic. She came into the ED. She was getting evaluated and she had another seizure here. I will refer you to the nursing notes for details, but again, the daughter who had seen the first seizure was here and said it was exactly the same as the previous one lasting about a minute, she was shaking. They loaded her with Dilantin down here. They gave her Ativan, ketamine, and they tried to attempt a CT brain. Unfortunately, she was rather restless for that and was unable to attempt it. Daughter says that she has not been having anymore nausea, vomiting, or diarrhea. The last few days, she has been acting at her baseline. It sounds like she has a moderate amount of dementia. She knows her name. She typically can cite where she is and is functioning with help from her children. The ED was concerned because there were possible seizures and we were asked to evaluate. Again, no reports of fevers, no reports of recent med changes over the last 2 months, no new medications were reported to be added, and again there was no history of seizures. PAST MEDICAL HISTORY: Significant for: 1. COPD. 2. AFib. 3. Dementia. 4. Hypertension. 5. Hyperlipidemia. 6. DVT. 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 8. Depression. 9. GERD. PAST SURGICAL HISTORY: 1. The patient has had a tubal ligation. 2. She has had TMJ surgery. 3. Right total knee replacement. 4. AAA repair. HOME MEDICATIONS: Include: 1. Melatonin 9 mg p.o. at bedtime. 2. Tylenol Extra Strength 1000 mg every 6 hours as needed. 3. Norvasc 5 mg p.o. daily. 4. Effexor 150 mg p.o. daily. 5. Seroquel 100 mg at bedtime. 6. Metoprolol XL 50 mg daily. 7. Aspirin 81 mg daily. 8. Zocor 20 mg at bedtime. 9. Prilosec 20 mg p.o. daily. 10. Aricept 10 mg p.o. at bedtime. 11. Vitamin D 3000 units p.o. daily. 12. Amiodarone 100 mg p.o. daily. 13. Ferrous sulfate 325 mg daily. 14. Calcium carbonate 1 tablet p.o. daily. FAMILY HISTORY: The patient's mother did have a history of dementia according to the daughter. Father's history is unknown. SOCIAL HISTORY: She is a former smoker. She does not drink alcohol. She lives with her daughter. Surrogate decision makers are her daughters. REVIEW OF SYSTEMS: Unable to be obtained given the patient's current mental state. PHYSICAL EXAMINATION GENERAL: At this time, Ms. Tovar is a 77-year-old female patient. She is sitting in the ED stretcher. She does not appear to be in any acute distress. VITAL SIGNS: Blood pressure when she presented was 193/116, it is now 169/102; her heart rate is 80; respirations 20; O2 sat 94%; temperature was 97.9. HEENT: Head: Atraumatic and normocephalic. Eyes: EOMs intact. Sclerae anicteric and not pale. Throat: Oral mucosa appears to be dry. No oropharyngeal erythema. NECK: Supple. LUNGS: Clear to auscultation bilaterally. No wheezes, rales, or rhonchi. HEART: Sounds S1, S2. She had an irregularly irregular rate. No murmurs, rubs , or gallops. ABDOMEN: Soft. It was flat, nontender. Bowel sounds present. EXTREMITIES: Pulses were 2+ throughout. She was moving all 4 extremities, withdrawing them to pain. NEUROLOGIC: She does appear to be postictal. She will open her eyes to her name. She will make incomprehensible sounds. She will not follow complex commands currently. She has no facial drooping. She does respond to threat bilaterally. She again is grossly moving her 4 extremities at this point, but no gross focal deficit was seen. SKIN: Intact. DIAGNOSTIC STUDIES/LAB DATA: WBC of 13.6, RBC of 4.76, hemoglobin of 13.9, hematocrit of 44, platelet count 234. The INR was 0.86. The sodium was 139, potassium 4.1, chloride of 103, bicarb 22, BUN 18, creatinine of 0.95, glucose of 123, lactic 4.4, calcium 10.5, total mag 2.0. Total bili 0.4, AST 21, ALT 15 , alk phos 95. Albumin was 4.1. Urine obtained and it was negative. Toxicology negative. She had a CT brain obtained today, which again was a limited study due to motion artifact, but impression: Significantly limited study due to motion artifact. No gross evidence for acute findings. Bilateral areas of encephalomalacia within temporal lobes most consistent with old infarcts. Consider repeat imaging once the patient is clinically able. EKG obtained today shows atrial fibrillation, rate of 89 with LVH. She does have inverted T-waves in leads I, II, II, aVF and along with this in V6, depression in V4 and V5. When you look previously, the depression in V5 is there, she has had T-wave inversions in the similar leads and she has had LVH previously. AFib is not new. Old medical records were reviewed. ASSESSMENT AND PLAN: Ms. Tovar is a 77-year-old female patient coming into the ED today with possible seizure and altered mental status. She will be admitted under inpatient status for: 1. Seizure. Etiology of which is unclear. I do not see any obvious infection precipitating this. I am concerned about the blood pressure that may have certainly set this off; however, less likely. My plan is to get Neurology involved. I will get frequent neuro checks on the patient. I will place her on seizure precautions. I am ordering an MRI of the brain with and without contrast. In addition to this, I am going to try to repeat that CT brain. I will place her on Dilantin 100 t.i.d. p.o. If she is unable to take it, we can switch it to IV. We will get an EEG as well and Neurology has already been consulted. 2. Hypertension. Again, her blood pressure now is 169/102, which is satisfactory. I have ordered p.r.n. hydralazine. If she is requiring IV hydralazine, we certainly will increase her Norvasc and possibly add on another agents. 3. Chronic obstructive pulmonary disease. I have ordered p.r.n. albuterol. 4. Atrial fibrillation. Her rate is controlled. We will continue her rate controlling agent. Holding on anticoagulation. 5. Dementia. Continue with supportive care. 6. Hyperlipidemia. Continue statin therapy. 7. History of deep venous thrombosis. Once I confirm that there is no bleed, I certainly will place her on possible Arixtra. 8. Depression. Continue with supportive care. 10. Gastroesophageal reflux disease. Continue PPI therapy. 11. Fluids, electrolytes, and nutrition: We will do a bedside nursing swallow eval when she is more awake. At this point, she is n.p.o. except for meds. 12. Code status: She is a DNR per the daughter. TIME SPENT: Time spent on the admission was 60 minutes, greater than half of the time was spent [id number] with the patient obtaining my history and physical, other half of the time was spent going over the plan of care with the patient and implementing plan of care. I did discuss the plan of care with my attending, Dr. White; she is in agreement. RIAN ASIF, TASHA [id number]/[facility] #: [id number] NANNETTE
[2018-05-22] MEDS: NS 0.9% 1000 ML* 1,000 ML IV SCH (20:51)
[2018-05-22] MEDS: QUEtiapine TAB* 100 MG PO SCH (20:53)
[2018-05-22] MEDS: Atorvastatin* 10 MG TAB PO SCH (20:53)
[2018-05-22] MEDS: Phenytoin CAP(*) 100 MG CAP.ER PO SCH (20:53)
[2018-05-22] MEDS ORDERED: Donepezil TAB* 5 MG PO SCH (21:00)
[2018-05-23 05:55] LABS: Hematocrit 38 % (35-47); Hemoglobin 12.4 g/dl (12.0-16.0); Mean Corpuscular HGB Conc 33 g/dl (31-36); Mean Corpuscular Hemoglobin 29 pg (27-31); Mean Corpuscular Volume 90 fL (80-97); Mean Platelet Volume 11.5 fL (7.4-10.4); Platelet Count 189 10^3/ul (150-450); Red Blood Count 4.22 10^6/ul (4.00-5.40); Red Cell Distribution Width 15 % (10.5-15); White Blood Count 8.9 10^3/ul (3.5-10.8)
[2018-05-23 06:27] LABS: ABS Basophils 0.1 10^3/ul (0-0.2); ABS Eosinophils 0.1 10^3/ul (0-0.6); ABS Lymphocytes 1.4 10^3/ul (1.0-4.8); ABS Monocytes 0.7 10^3/ul (0-0.8); ABS Neutrophils 6.6 10^3/ul (1.5-7.7); ABS Nucleated RBC 0 10^3/ul; Eosinophil % 0.7 % (0-6); Lymphocyte % 16.1 % (25-47); Nucleated Red Blood Cells % 0
[2018-05-23 06:54] LABS: EGFR Non-African American 59.2 (>60)
[2018-05-23] MEDS: NS 0.9% 1000 ML* 1,000 ML IV SCH (07:50)
[2018-05-23] MEDS: amLODIPine TAB* 5 MG PO SCH (08:34)
[2018-05-23] MEDS: Aspirin EC TAB* 81 MG TAB.EC PO SCH (08:34)
[2018-05-23] MEDS: Omeprazole CAP* 20 MG PO SCH (08:34)
[2018-05-23] MEDS: Amiodarone TAB* 200 MG PO SCH (08:34)
[2018-05-23] MEDS: Phenytoin CAP(*) 100 MG CAP.ER PO SCH ×3 (08:35→21:44)
[2018-05-23] MEDS: Ferrous Sulfate TAB* 325 MG PO SCH (08:35)
[2018-05-23] MEDS: Metoprolol Succinate XL TAB* 50 MG PO SCH (08:35)
[2018-05-23] MEDS: Venlafaxine EXT RELEASE CAP* 75 MG PO SCH (08:35)
--- NOTE | 2018-05-23 15:47 | CONS ---
NEUROLOGY CONSULTATION NOTE: DATE OF CONSULT: 05/23/18 CONSULTING PROVIDERS: Dr. Kayleigh White and Rian Asif NP REASON FOR CONSULT: Seizures. CHIEF COMPLAINT: New onset seizure. HISTORY OF PRESENT ILLNESS: Mrs. Lucy Tovar is a pleasant 77-year-old female who has dementia for over 7 years who currently resides with her daughter who presented to [facility] after a witnessed seizure. The history was mostly obtained by the patient's daughter, Taylor, who was at bedside. Taylor stated that the patient was in normal state of health at around 9 a.m. on 05/22/18. They were both peeling apples to start making a pie. The patient then suddenly stopped talking, her left arm crossed to the right side, she became stiff, eyes opened, would not answer any questions, and then after 10 seconds, began developing full body tremors. This lasted for 1 minute. The patient had urinary incontinence. Taylor called 911 and she was informed to lie her down on the floor. She had no head injury. She did not bite her tongue. After 5 minutes, the patient came back to and wanted to stand up and resume her activity. Taylor stated that 3 months ago, she went to visit her mother in her apartment and noticed that her mother was confused. Again, this was transient episode. The patient does apparently have history of atrial fibrillation and had severe abdominal bleeding while on Coumadin. She was hospitalized at [facility]. She required 7 units of blood transfusion. During that hospitalization, the patient did have an episode where she had sudden onset of memory problem. Currently, the patient is resting comfortably. She is in no acute distress. She is very talkative and interactive. Taylor stated that she is back to her normal self. In the ED on 05/22/18, the patient apparently had another episode of generalized convulsion. She required IV benzodiazepine where she received a total of 3 mg. She also received ketamine and was almost at urge of being intubated. She was loaded with phenytoin 1000 mg x1 and was continued on a 1000 mg dose every 8 hours. The total phenytoin level was 12.4. She had a CT of the head that showed remote ischemic infarction mostly involving in the left temporal, right cerebellum, and the right parietal lobe. Most of these are cortical infarcts. The patient does also have diffuse mild to moderate cerebral atrophy as well as small vessel ischemic changes. The patient has had dementia for 7 years. She continues to perform all activities of daily living. She is able to feed herself, bath herself, and enjoys playing crossword puzzles. She does not drive. She is on Aricept 10 mg daily. The patient has no history of meningitis or encephalitis. The patient has no family history of epilepsy. She has never had any brain or spinal cord surgeries. PAST MEDICAL HISTORY: COPD, atrial fibrillation, dementia, hypertension, dyslipidemia, DVT, depression, and GERD. 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 PAST SURGICAL HISTORY: Tubal ligation, TMJ surgery, right total knee replacement, and AAA repair. HOME MEDICATIONS: 1. Melatonin 9 mg p.o. at bedtime. 2. Tylenol 1000 mg every 6 hours. 3. Norvasc 5 mg p.o. daily. 4. Effexor 150 mg p.o. daily. 5. Seroquel 100 mg at bedtime. 6. Metoprolol XL 50 mg daily. 7. Aspirin 81 mg daily. 8. Zocor 20 mg at bedtime. 9. Prilosec 20 mg p.o. daily. 10. Aricept 10 mg p.o. at bedtime. 11. Vitamin D 3000 units daily. 12. Amiodarone 100 mg p.o. daily. 13. Ferrous sulfate 325 mg daily. 14. Calcium carbonate 1 tablet p.o. daily. FAMILY HISTORY: There is no family history of stroke or seizures. The patient' s mother does have history of dementia. SOCIAL HISTORY: She is a former smoker. She does not consume alcohol. There is no history of drug use. REVIEW OF SYSTEMS: A 14-point review of systems was obtained and otherwise negative except for what was mentioned in the HPI. PHYSICAL EXAMINATION: Vitals: Temperature 98.2, pulse rate of 71, respiratory rate of 16, oxygen saturation 95%, blood pressure 147/60. General: Well- nourished, well-developed female, in no acute distress. Head: Normocephalic, atraumatic. Eyes: Conjunctivae/corneas are clear. Neck is supple and symmetrical with no carotid bruits. Lungs are clear to auscultation bilaterally with nonlabored breathing. Cardiovascular: Regular rate and rhythm with normal S1, S2. Extremities: Normal range of motion with no cyanosis. Skin: No skin lesions or laceration. Psych: Affect is broad and normal mood. Neurological Examination: Mental status: Awake and alert, oriented to person, place, but not time. Speech and language including expression, naming, and repetition were assessed and she was found to have some preservated speech as well as psychomotor slowing. Cranial Nerves: Normal to confrontation bilaterally. Pupils are mid range and reactive to light. Sensation is intact on the forehead, cheeks, and jaw region bilaterally. There is no facial droop. She is able to hear throughout the history process. Symmetrical palatal elevation. Normal strength against shoulder resistance and tongue is symmetrical and midline with no atrophy or fasciculation. Motor Examination: No abnormal movements or pronator drift. Normal bulk and tone throughout. No fasciculation. Neck extension is 5. Strength is 5/5 throughout. Reflexes (right/left): Brachioradialis 2/2, biceps 2/2, triceps 2/2 , patella 2/2, ankle 1/1, plantar flexor/flexor. Sensation is intact to light and temperature throughout. Coordination: Normal [id number]. Gait was not assessed, but the patient does use a walker at baseline. LABORATORY TESTING: WBC of 13.6, but decreased to 8.9, platelets of 189. Sodium 139, potassium 3.5, chloride of 107, carbon dioxide is 26, creatinine 0.92. Lactic acid 4.4, decreased to 1.7. ASSESSMENT: Mrs. 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 The patient had 2 seizures, one at home and the second in the emergency department. The daughter does provide history that she had episodes in the past where she is confused for a short period of time and then goes back to her normal state of health. 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 The semiology of the seizure suggested a complex partial seizures with secondary generalization given the focality of the seizure. The seizures are most likely emanating from the left temporal lobe. This is where she has a structure abnormality and encephalomalacia. The patient has been loaded with phenytoin and she is tolerating the medication without any side effects. She was unable to tolerate an MRI, despite attempting to obtain the study twice. I recommend continuing phenytoin most likely at a dose of 300 mg nightly. Repeat total phenytoin level tomorrow. I also recommend discontinuing Aricept. Although she has multiple reasons to have a seizure both including dementia and strokes, Aricept is thought to possibly lower the seizure threshold. We will consider starting her on memantine as an outpatient, which is an anticonvulsant and MDA inhibitor , which helps with dementia. Please order an EEG to evaluate for epileptiform abnormalities. We talked about seizure precautions. We provided education to the patient and family regarding the risk of seizures and how to prevent another episode. She is not driving. She should not be operating any heavy machinery. She should continue taking aspirin regularly. She had a severe GI hemorrhage on coumadin. The family and patient agreed that she would not be a good candidate for anticoagulation therapy. The above recommendations were discussed with the patient and Taylor. I also reviewed CT head imaging with Taylor today. TIME SPENT: 75 minutes. [id number]/[facility] #: [id number] NANNETTE
--- NOTE | 2018-05-23 18:18 | PN ---
Subjective Date of Service: 05/23/18 Interval History: Patient denies chest pain or shortness of breath. denies abd pain n/v/d, denies fever or chills. Patient is confused to place and time and situation. oriented to name. Family History: Unchanged from Admission Social History: Unchanged from Admission Past Medical History: Unchanged from Admission Objective Active Medications: Acetaminophen (Tylenol Tab*) 650 mg PO Q4H PRN PRN Reason: FEVER/PAIN Albuterol (Ventolin 2.5 Mg/3 Ml Neb.Gianna*) 2.5 mg INH Q2H PRN PRN Reason: SOB/WHEEZING Amiodarone HCl (Cordarone Tab*) 100 mg PO DAILY [facility] Last Admin: 05/23/18 08:34 Dose: 100 mg Amlodipine Besylate (Norvasc Tab*) 5 mg PO DAILY [facility] Last Admin: 05/23/18 08:34 Dose: 5 mg Aspirin (Aspirin Ec Tab*) 81 mg PO DAILY [facility] Last Admin: 05/23/18 08:34 Dose: 81 mg Atorvastatin Calcium (Lipitor*) 10 mg PO BEDTIME [facility] Last Admin: 05/22/18 20:53 Dose: 10 mg Ferrous Sulfate (Ferrous Sulfate Tab*) 325 mg PO DAILY [facility] Last Admin: 05/23/18 08:35 Dose: 325 mg Hydralazine HCl (Apresoline Iv*) 5 mg IV SLOW PU Q6H PRN PRN Reason: BLOOD PRESSURE Sodium Chloride (Ns 0.9% 1000 Ml*) 1,000 mls @ 75 mls/hr IV PER RATE [facility] Last Admin: 05/22/18 20:51 Dose: 75 mls/hr Metoprolol Succinate (Toprol Xl Tab*) 50 mg PO DAILY [facility] Last Admin: 05/23/18 08:35 Dose: 50 mg Omeprazole (Prilosec Cap*) 20 mg PO DAILY [facility] Last Admin: 05/23/18 08:34 Dose: 20 mg Ondansetron HCl (Zofran Inj*) 4 mg IV Q6H PRN PRN Reason: NAUSEA Phenytoin Sodium (Dilantin Cap(*)) 100 mg PO TID [facility] Last Admin: 05/23/18 14:01 Dose: 100 mg Quetiapine Fumarate (Seroquel Tab*) 100 mg PO BEDTIME [facility] Last Admin: 05/22/18 20:53 Dose: 100 mg Venlafaxine HCl (Effexor Xr Cap*) 150 mg PO DAILY [facility]; Protocol Last Admin: 05/23/18 08:35 Dose: 150 mg Vital Signs - 8 hr 05/23/18 15:30 Temperature 99.3 F Pulse Rate 77 Respiratory 18 Rate Blood Pressure 136/72 (mmHg) O2 Sat by Pulse 95 Oximetry Oxygen Devices in Use Now: Nasal Cannula Appearance: confused, appears stated age, no acute distress Eyes: No Scleral Icterus Ears/Nose/Mouth/Throat: Clear Oropharnyx, Mucous Membranes Moist Neck: NL Appearance and Movements; NL JVP, Trachea Midline Respiratory: Symmetrical Chest Expansion and Respiratory Effort, Clear to Auscultation Cardiovascular: NL Sounds; No Murmurs; No JVD, No Edema Abdominal: NL Sounds; No Tenderness; No Distention Extremities: No Edema, No Clubbing, Cyanosis Skin: No Rash or Ulcers Neurological: Alert and Oriented x 3 - oriented to person only Nutrition: Taking PO's Result Diagrams: 05/23/18 05:21 05/23/18 05:21 Microbiology and Other Data: Microbiology 05/22/18 11:56 Urine Culture - Final Urine No Growth (<1,000 CFU/mL) Assess/Plan/Problems-Billing Assessment: Ms. Grider is a 77 y.o female wirh a hx of dementia AFib, not on anticoagulation; hypertension; hyperlipidemia; DVT; COPD; and GERD who presented to the ER with altered mental status and possible seizure. while in the ER the patient had a seizure.. - Patient Problems (1) Seizure Current Visit: Yes Status: Acute Code(s): R56.9 - UNSPECIFIED CONVULSIONS SNOMED Code(s): 72506852 Comment: - continue dilantin - will get dilantin level in the AM - seizure pre-cautions - neurology consulted- recommended stopped aricept - aricept stopped - EEG - pending - unable to get MRI - after 2 attempts (2) Atrial fibrillation Current Visit: No Status: Acute Code(s): I48.91 - UNSPECIFIED ATRIAL FIBRILLATION SNOMED Code(s): 99147066 Comment: Not on anticoagulation due to rectus sheath hematoma while on anticoagulation. Rate-controlled. - continue amiodarone, metoprolol - ASA (3) Hypertension Current Visit: No Status: Chronic Priority: Medium Code(s): I10 - ESSENTIAL (PRIMARY) HYPERTENSION SNOMED Code(s): 04152235 Comment: SBP 130s-140s. 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
[2018-05-23] MEDS: QUEtiapine TAB* 100 MG PO SCH (21:44)
[2018-05-23] MEDS: Atorvastatin* 10 MG TAB PO SCH (21:44)
--- NOTE | 2018-05-24 05:52 | EEG ---
ELECTROENCEPHALOGRAPHY: DATE OF SERVICE: 05/22/18 - ROOM #[id number] DATE READ: 05/23/18 ORDERED BY: Rian Asif NP MEDICATIONS: 1. Trandate. 2. Aricept. 3. Dilantin. 4. Seroquel. 5. Zocor. 6. Cordarone. 7. Norvasc. 8. Aspirin. 9. Ferrous sulfate. 10. Toprol. 11. Prilosec. 12. Effexor. 13. Tylenol. 14. Apresoline. 15. Zofran. 16. Ketamine. 17. Ativan. INDICATIONS: Ms. Tovar is a 77-year-old female with history of stroke and dementia who presented with complex partial seizure with secondary generalization. This EEG was obtained to evaluate for epileptiform abnormalities or electrographic seizures. STATE: Encephalopathic. BACKGROUND: The background lacked organization with clearly defined anterior- posterior voltage and frequency gradients. There was no discernible posterior dominant rhythm. Instead, the background consisted of mixed frequency slowing in the delta and theta range. There were more intermittent delta slowing in the right hemisphere maximally at the right frontal region. There was some emergence of faster frequency with verbal and tactile stimulation. Hyperventilation and photic stimulation were not performed. Throughout the recording, there were no epileptiform discharges or electrographic seizures. IMPRESSION: This is an abnormal EEG due to the presence of diffuse but reactive slowing. This seemed to be worse over the right frontal region. There are no epileptiform abnormalities. These findings are suggestive of a nonspecific moderate diffuse encephalopathy that is affecting the right temporal region to a greater extent or is also showing a superimposed focal neuronal dysfunction in the right hemisphere. This focality is consistent with the patient's previous history of stroke in that region. There were no electrographic seizures. [id number]/[facility] #: [id number] [facility] MEDICAL CENTERDavonte
[2018-05-24] MEDS: Ferrous Sulfate TAB* 325 MG PO SCH (09:45)
[2018-05-24] MEDS: amLODIPine TAB* 5 MG PO SCH (09:45)
[2018-05-24] MEDS: Metoprolol Succinate XL TAB* 50 MG PO SCH (09:45)
[2018-05-24] MEDS: Venlafaxine EXT RELEASE CAP* 75 MG PO SCH (09:45)
[2018-05-24] MEDS: Omeprazole CAP* 20 MG PO SCH (09:45)
[2018-05-24] MEDS: Amiodarone TAB* 200 MG PO SCH (09:46)
[2018-05-24] MEDS: Phenytoin CAP(*) 100 MG CAP.ER PO SCH ×2 (09:46→13:46)
[2018-05-24] MEDS: Aspirin EC TAB* 81 MG TAB.EC PO SCH (09:46)
[2018-05-24] MEDS ORDERED: amLODIPine TAB* 5 MG PO ONE (12:18)
--- NOTE | 2018-05-24 12:47 | DCNOTE ---
Subjective Date of Service: 05/24/18 Interval History: Patient offers no complaints. She is alert and oriented but noted to have confusion at her baseline asking the same question again and didnt remember the neurologist who was just in her room 5 minutes prior. Per Daughter Thomas this is her baseline No further seizure activity Family History: Unchanged from Admission Social History: Unchanged from Admission Past Medical History: Unchanged from Admission Objective Active Medications: Acetaminophen (Tylenol Tab*) 650 mg PO Q4H PRN PRN Reason: FEVER/PAIN Albuterol (Ventolin 2.5 Mg/3 Ml Neb.Gianna*) 2.5 mg INH Q2H PRN PRN Reason: SOB/WHEEZING Amiodarone HCl (Cordarone Tab*) 100 mg PO DAILY [facility] Last Admin: 05/24/18 09:46 Dose: 100 mg Amlodipine Besylate (Norvasc Tab*) 10 mg PO DAILY [facility] Aspirin (Aspirin Ec Tab*) 81 mg PO DAILY [facility] Last Admin: 05/24/18 09:46 Dose: 81 mg Atorvastatin Calcium (Lipitor*) 10 mg PO BEDTIME [facility] Last Admin: 05/23/18 21:44 Dose: 10 mg Ferrous Sulfate (Ferrous Sulfate Tab*) 325 mg PO DAILY [facility] Last Admin: 05/24/18 09:45 Dose: 325 mg Hydralazine HCl (Apresoline Iv*) 5 mg IV SLOW PU Q6H PRN PRN Reason: BLOOD PRESSURE Metoprolol Succinate (Toprol Xl Tab*) 50 mg PO DAILY [facility] Last Admin: 05/24/18 09:45 Dose: 50 mg Omeprazole (Prilosec Cap*) 20 mg PO DAILY [facility] Last Admin: 05/24/18 09:45 Dose: 20 mg Ondansetron HCl (Zofran Inj*) 4 mg IV Q6H PRN PRN Reason: NAUSEA Phenytoin Sodium (Dilantin Cap(*)) 100 mg PO TID [facility] Last Admin: 05/24/18 09:46 Dose: 100 mg Quetiapine Fumarate (Seroquel Tab*) 50 mg PO BEDTIME [facility] Venlafaxine HCl (Effexor Xr Cap*) 150 mg PO DAILY [facility]; Protocol Last Admin: 05/24/18 09:45 Dose: 150 mg Vital Signs - 8 hr 05/24/18 05/24/18 05/24/18 08:00 08:13 12:16 Temperature 98.5 F 98.6 F Pulse Rate 80 84 Respiratory 18 16 16 Rate Blood Pressure 185/88 178/98 (mmHg) O2 Sat by Pulse 98 97 Oximetry Oxygen Devices in Use Now: None Appearance: 77 yo female sitting up in bed A+O to self and place but not to date - mild confusion noted Eyes: No Scleral Icterus, PERRLA Ears/Nose/Mouth/Throat: NL Teeth, Lips, Gums, Mucous Membranes Moist Neck: NL Appearance and Movements; NL JVP Respiratory: Symmetrical Chest Expansion and Respiratory Effort, Clear to Auscultation Cardiovascular: NL Sounds; No Murmurs; No JVD, RRR, No Edema Abdominal: NL Sounds; No Tenderness; No Distention Lymphatic: No Cervical Adenopathy Extremities: No Edema, No Clubbing, Cyanosis Skin: No Rash or Ulcers, No Nodules or Sclerosis Neurological: Alert and Oriented x 3, NL Muscle Strength and Tone Lines/Tubes/Other Access: Clean, Dry and Intact Peripheral IV Nutrition: Taking PO's Result Diagrams: 05/23/18 05:21 05/23/18 05:21 Microbiology and Other Data: Microbiology 05/22/18 11:56 Urine Culture - Final Urine No Growth (<1,000 CFU/mL) Assess/Plan/Problems-Billing Assessment: Ms. Grider is a 77 y.o female wirh a hx of dementia AFib, not on anticoagulation; hypertension; hyperlipidemia; DVT; COPD; and GERD who presented to the ER with altered mental status and possible seizure. while in the ER the patient had a seizure.. - Patient Problems (1) Seizure Comment: - No further seizures - continue dilantin - dilantin level wnls - neurology consulted- recommended stopped aricept due to lowering seizure threshold - - change pheyntoin to 300 mg QHS starting tomorrow. Discussed with daughter - EEG - reviewed by neurology - unable to get MRI - after 2 attempts - pt refusing - follow up with Dr. Chu as outpt (2) Atrial fibrillation Comment: Not on anticoagulation due to rectus sheath hematoma while on anticoagulation. Rate-controlled. - continue amiodarone, metoprolol - ASA (3) COPD (chronic obstructive pulmonary disease) Comment: stable. no exacerbation noted (4) Dementia Comment: stop donepezil - follow up with Dr. Chu as outpt Intermittently confused No behavioral concerns Decrease seroquel to 50 mg from 100 mg in recommendation by neurology d/t noted tardive dyskensia movements (5) Hypertension Comment: SBP 160-180s continue metoprolol Increase norvasc to 10 mg daily (6) DNR (do not resuscitate) Comment: DNR/DNI (7) DVT prophylaxis Comment: SCDs Status and Disposition: plan for DC to home- discussed DC plan with daughter Thomas
--- NOTE | 2018-05-24 14:00 | PN ---
Progress Note - Progress Note Date of Service: 05/24/18 SOAP: Neurology is following Ms. Grider for the evaluation and treatment of seizures. Subjective: She is resting comfortable. Her BP is elevated today. She has not had any seizures today. She is pleasantly demented. She denied any headaches, visual disturbance, or focal weakness/paresthesia. She has some increase in movements today. Phenytoin 11.9. Medications: Acetaminophen (Tylenol Tab*) 650 mg PO Q4H PRN PRN Reason: FEVER/PAIN Albuterol (Ventolin 2.5 Mg/3 Ml Neb.Gianna*) 2.5 mg INH Q2H PRN PRN Reason: SOB/WHEEZING Amiodarone HCl (Cordarone Tab*) 100 mg PO DAILY [facility] Last Admin: 05/24/18 09:46 Dose: 100 mg Amlodipine Besylate (Norvasc Tab*) 10 mg PO DAILY [facility] Aspirin (Aspirin Ec Tab*) 81 mg PO DAILY [facility] Last Admin: 05/24/18 09:46 Dose: 81 mg Atorvastatin Calcium (Lipitor*) 10 mg PO BEDTIME [facility] Last Admin: 05/23/18 21:44 Dose: 10 mg Ferrous Sulfate (Ferrous Sulfate Tab*) 325 mg PO DAILY [facility] Last Admin: 05/24/18 09:45 Dose: 325 mg Hydralazine HCl (Apresoline Iv*) 5 mg IV SLOW PU Q6H PRN PRN Reason: BLOOD PRESSURE Metoprolol Succinate (Toprol Xl Tab*) 50 mg PO DAILY [facility] Last Admin: 05/24/18 09:45 Dose: 50 mg Omeprazole (Prilosec Cap*) 20 mg PO DAILY [facility] Last Admin: 05/24/18 09:45 Dose: 20 mg Ondansetron HCl (Zofran Inj*) 4 mg IV Q6H PRN PRN Reason: NAUSEA Phenytoin Sodium (Dilantin Cap(*)) 100 mg PO TID [facility] Last Admin: 05/24/18 13:46 Dose: 100 mg Quetiapine Fumarate (Seroquel Tab*) 50 mg PO BEDTIME [facility] Venlafaxine HCl (Effexor Xr Cap*) 150 mg PO DAILY [facility]; Protocol Last Admin: 05/24/18 09:45 Dose: 150 mg Objective: Vital Signs - 12 hr Temp Pulse Resp BP Pulse Ox 05/24/18 12:16 98.6 F 84 16 178/98 97 05/24/18 08:13 98.5 F 80 16 185/88 98 05/24/18 08:00 18 05/24/18 03:56 98.1 F 81 19 174/77 94 General: well nourished, well developed. Alert, cooperative, no apparent distress. HEENT: normocephalic, without obvious abnormality. Conjunctivae/corneas clear. Psych: affect-broad and normal mood. Easy to establish rapport. Neurological examination: Mental status: awake; alert and oriented to person, place, time, & general circumstances. Normal speech and language. Cranial nerves: PERRL, EOM-I, no facial asymmetry. Motor (R/L): no abnormal movements, no pronator drift. Normal tone. Strength ( R/L): 5/5 bilaterally. Mild dyskinesia of the extremities. Reflexes: symmetric 1+ throughout. Sensation is intact to light touch throughout. Coordination: normal finger to nose and rapid alternating movements. Gait & Station: wide based. Walker dependent. Assessment/Plan: 1. New onset seizure, presumably localization-related epilepsy- tolerating phenytoin. Change dose to 300 mg daily/nightly starting tomorrow. 2. Mixed dementia- discontinued Aricept. Start Memantine as outpatient. She will follow-up with Dr. Chu. 3. Dyskinesia- most likely due to Seroquel. Decrease dose to 50 mg nightly. 4. Hypertension urgency- defer treatment to the primary team. Discussed plan with Suzanne.
[2018-05-24 15:16] VITALS: BP 164/84
[2018-05-24] MEDS ORDERED: QUEtiapine TAB* 25 MG PO SCH (21:00)
--- NOTE | 2018-05-25 06:12 | DS ---
AMENDED REPORT NOW INCLUDES DESIGNATED COSIGNER CC: Dr. Mcdonald * DISCHARGE SUMMARY: DATE OF ADMISSION: 05/22/18 DATE OF DISCHARGE: 05/24/18 PROVIDER: Jyoti Spencer NP ATTENDING PHYSICIAN: Dr. Caban * (dictated by Jyoti Spencer NP). PRIMARY CARE PROVIDER: Dr. Mcdonald. REFERRAL TO: Neurologist, Dr. Lenin Chu. DISCHARGE DIAGNOSES: 1. Seizure disorder. 2. Hypertension. 3. Dementia. SECONDARY DIAGNOSES: 1. Chronic obstructive pulmonary disease. 2. Atrial fibrillation. 3. Stroke. HISTORY OF PRESENT ILLNESS AND HOSPITAL COURSE: Please see history and physical by Rian Asif NP, for full admission details, but in summary this is a 77-year-old female with a past medical history of atrial fibrillation, not on anticoagulation; hypertension; hyperlipidemia; history of DVT; COPD; GERD; history of stroke, who presented to the emergency department on 05/22/18 after she had a seizure at home. She had a second seizure in the emergency department. The daughter is at the bedside, who provides most of the history and reports she had episodes in the past where she was confused for short periods of time and then would go back into her normal state of health. She was seen by the neurologist, Dr. 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 He reports the semiology of the seizure suggests a complex partial seizure with secondary generalization given the focality of the seizure. The patient was loaded with phenytoin and monitored on telemetry unit. She tolerated the medications without any side effects. She was unable to tolerate MRI despite attempting to obtain the study twice due to her dementia. Dr. Hou also recommended discontinuing the Aricept, reporting although she has multiple reasons to have seizure, both including dementia and stroke, the Aricept is thought to possibly lower the seizure threshold. Could consider starting her on memantine as an outpatient, which would help with her dementia, but we will defer this to the outpatient Neurology followup with Dr. Chu. Discharge plan was discussed with the daughter and seizure precautions were discussed. Provided education to the patient and family regarding the risks of seizures and how to prevent another episode. The patient is currently not driving and does not operate any heavy machinery. Recommendation was to continue daily aspirin. She is not on anticoagulation secondary to a severe GI hemorrhage on Coumadin. The patient and family agree that she would not be a good candidate for anticoagulation therapy. The patient has done well throughout her hospitalization. She has been noted to be hypertensive with improving blood pressures over the past 24 hours. The patient appears to be very anxious and suspect her hypertension is secondary to anxiety related to being in the hospital; however, I have increased her Norvasc from 5 mg daily to 10 mg daily. This is discussed with her daughter, Thomas, who takes her blood pressure multiple times a day and she was given blood pressure parameters to call the PCP on the discharge summary. Dr. Hou, neurologist, also recommended decreasing the patient's Seroquel from 100 mg p.o. at bedtime to 50 mg p.o. at bedtime based on noted symptoms of tardive dyskinesia. The patient should have a followup phenytoin level in 1 week due to the interaction between phenytoin and amiodarone, which can increase the phenytoin level. Phenytoin level today is normal at 11.9. DISCHARGE MEDICATIONS: 1. Melatonin p.o. at bedtime. 2. Acetaminophen 1000 mg p.o. q.8 hours p.r.n. 3. Effexor 150 mg p.o. daily. 4. Metoprolol succinate XL 50 mg p.o. daily. 5. Aspirin 81 mg p.o. daily. 6. Simvastatin 20 mg p.o. daily 7. Omeprazole 20 mg p.o. daily. 8. Vitamin D 2000 units p.o. daily. 9. Amiodarone 100 mg p.o. daily. 10. Ferrous sulfate 325 mg p.o. daily. 11. Calcium carbonate/vitamin D3 one tab p.o. daily. 12. Amlodipine 10 mg p.o. daily (increased from 5 mg p.o. daily.) 13. Seroquel 50 mg p.o. at bedtime (decreased from 100 mg p.o. at bedtime.) 14. Phenytoin 300 mg p.o. at bedtime (new medication). DISCHARGE PLAN: 1. Follow up with primary care provider, Dr. Mcdonald, within 5 to 7 days. 2. Follow up phenytoin level, results going to PCP in 5 days. 3. Follow up with Dr. Lenin Chu, neurologist, as an outpatient. The family was instructed to make this appointment themselves. 4. Return to the emergency department with any worsening or concerning symptoms. The patient is stable for discharge home. The discharge plan was discussed with her daughter, Thomas. TIME SPENT: Approximately 60 minutes was spent on this discharge. JYOTI SPENCER NP [id number]/CPS #: [id number] NANNETTE
[2018-05-25] MEDS ORDERED: amLODIPine TAB* 5 MG PO SCH (09:00)
== END 2018-05-24 17:13 | disposition home or self-care (01) | DRG 101 ==
LOC: ED 11:20 → MEDTELE 15:47
PROVIDERS: ADMIT Internal Medicine; ATTEND Internal Medicine
PROC: 4A10X4Z Monitoring of Central Nervous Electrical Activity, External Approach (ICD-10-PCS; principal; 2018-05-22)
DX: G40.209 Localization-related (focal) (partial) symptomatic epilepsy and epileptic syndromes with complex partial seizures, not intractable, without status epilepticus (principal); I10 Essential (primary) hypertension; J44.9 Chronic obstructive pulmonary disease, unspecified; I48.91 Unspecified atrial fibrillation; E78.5 Hyperlipidemia, unspecified; K21.9 Gastro-esophageal reflux disease without esophagitis; F41.9 Anxiety disorder, unspecified; I16.0 Hypertensive urgency; G93.89 Other specified disorders of brain; Z66 Do not resuscitate; F32.9 Major depressive disorder, single episode, unspecified; Z96.651 Presence of right artificial knee joint; R32 Unspecified urinary incontinence; F01.50 Vascular dementia, unspecified severity, without behavioral disturbance, psychotic disturbance, mood disturbance, and anxiety; G30.9 Alzheimer's disease, unspecified; F02.80 Dementia in other diseases classified elsewhere, unspecified severity, without behavioral disturbance, psychotic disturbance, mood disturbance, and anxiety; Z81.8 Family history of other mental and behavioral disorders; Z79.82 Long term (current) use of aspirin; Z87.891 Personal history of nicotine dependence; Z23 Encounter for immunization; Z86.73 Personal history of transient ischemic attack (TIA), and cerebral infarction without residual deficits; Z98.51 Tubal ligation status; Z86.718 Personal history of other venous thrombosis and embolism; G24.01 Drug induced subacute dyskinesia; T43.595A Adverse effect of other antipsychotics and neuroleptics, initial encounter; Y92.239 Unspecified place in hospital as the place of occurrence of the external cause
CPT/HCPCS: 36415; 70450; 80048; 80053; 80185; 80320; 81003; 81015; 83605; 83735; 84443; 85025; 85610; 87086; 90686; 93005; 95816; 99284; A9270-GY; G0480; J1165; J1644; J2060

== ENCOUNTER 2018-05-31 08:47 | Inpatient (IN) | payer MEDICARE ==
[2018-05-31] MEDS ORDERED: NS 0.9% 1000 ML* 1,000 ML IV ONE ×2 (08:55→09:30)
--- NOTE | 2018-05-31 08:55 | ED ---
Neurological HPI - HPI Summary HPI Summary: A 77 y/o female brought in by [facility] presents to [facility] with a chief complaint of a seizure at 08:00 05/31/2018. Per EMS the patient had her first seizure one week ago which was possibly due to a UTI and has a Hx of dementia. The patient presents to the ED after her second seizure which was reported to last less than one minute. The patient is able to respond to her name. She lives with her daughter. Per family, the patient is a former smoker, quitting a few years ago, and recently c/o eating less possibly due to abd pain, diarrhea and fatigue. - History of Current Complaint Stated Complaint: POSSIBLE SEIZURE Hx Obtained From: Patient, EMS Onset/Duration: Sudden Onset, Started minutes ago Timing: Sudden Onset Onset Severity: Moderate Current Severity: Moderate Episode Lasting: Seconds/Minutes - less than 1 min - Additional Pertinent History Primary Care Physician: [id number] - Allergy/Home Medications Allergies/Adverse Reactions: Allergies Allergy/AdvReac Type Severity Reaction Status Date / Time enoxaparin Allergy Unknown HIT Verified 03/20/18 23:24 heparin Allergy Unknown HIT Verified 03/20/18 23:24 gabapentin AdvReac Unknown confusion Verified 03/20/18 23:24 ENVIRONMENTAL Allergy Mild SEASONAL Uncoded 03/20/18 23:14 Sulfa Drug Allergy Mild Unknown Uncoded 03/20/18 23:24 Reaction Details Bee Venom Allergy Unknown Unknown Uncoded 03/20/18 23:24 Reaction Details PMH/Surg Hx/FS Hx/Imm Hx Endocrine/Hematology History: Reports: Hx Anticoagulant Therapy - Currently on coumadin, Heparin causes thrombocytopenia, Hx Anemia - HX OF Denies: Hx Diabetes, Hx Systemic Lupus Erythematosus Cardiovascular History: Reports: Hx Aneurysm - AAA, Hx Congestive Heart Failure , Hx Deep Vein Thrombosis, Hx Hypercholesterolemia, Hx Hypertension, Other Cardiovascular Problems/Disorders - paroxysmal afib, HLD, Hx DVt Denies: Hx Pacemaker/ICD Respiratory History: Reports: Hx Asthma, Hx Chronic Obstructive Pulmonary Disease (COPD), Other Respiratory Problems/Disorders - TROUBLE BREATHING ON HUMID DAYS GI History: Reports: Hx Gall Bladder Disease - Cholecystectomy, Hx Gastroesophageal Reflux Disease, Hx Gastrointestinal Bleed, Other GI Disorders - AAA History: Reports: Hx Kidney Infection - 50+ YEARS AGO, Other Problems/ Disorders - Urgency Denies: Hx Dialysis, Hx Renal Disease Musculoskeletal History: Reports: Hx Arthritis - GENERALIZED, Hx Back Problems - Chronic back pain Sensory History: Reports: Hx Cataracts - Removed, Hx Contacts or Glasses - at home Denies: Hx Hearing Aid Opthamlomology History: Reports: Hx Cataracts - Removed, Hx Contacts or Glasses - at home Neurological History: Reports: Hx Dementia - Alzheimer's, Hx Migraine - HX Psychiatric History: Reports: Hx Depression - ON MEDICATION FOR Denies: Hx Panic Disorder - Surgical History Surgery Procedure, Year, and Place: TUBAL,TMJ,CATARACTS BILAT,KNEE RIGHT REPLACEMENT,AAA, SANDEEP/APPY Hx Anesthesia Reactions: No - Immunization History Date of Tetanus Vaccine: Unk Date of Influenza Vaccine: Fall 2014 Infectious Disease History: Reports: Hx of Known/Suspected MRSA Denies: Traveled Outside the [place] in Last 30 Days - Family History Known Family History: Positive: Other - Alzheimer's (mother) - Social History Occupation: Retired Lives: With Family Alcohol Use: None Substance Use Type: Reports: None Smoking Status (MU): Former Smoker Type: Cigarettes Amount Used/How Often: 1-2 ppd Length of Time of Smoking/Using Tobacco: 50 years Have You Smoked in the Last Year: - pt is unable to recall Review of Systems Positive: Fatigue Positive: Abdominal Pain - could be eating less due to abd pain, Diarrhea Neurological: Other - positive: post seizure, responsive to her name All Other Systems Reviewed And Are Negative: Yes Physical Exam - Summary Physical Exam Summary: VITAL SIGNS: Reviewed. GENERAL: Patient is thin, disheveled, not kept female , who is alert and oriented. The patient is in a postictal state. Patient is hyperventilationg. HEAD AND FACE: No signs of trauma. No ecchymosis, hematomas or skull depressions. No sinus tenderness. No facial asymmetry , no nasolabial fold flattening EYES: PERRLA EOMI x 2, no nystagmus or gaze. No photophobia, No injected conjunctiva, EARS: Hearing grossly intact. Ear canals and tympanic membranes are within normal limits. MOUTH: Oropharynx within normal limits. Normal palatal elevation, no uvular deviation, Midline tongue protrusion. Dry oral mucosa NECK: Supple, trachea is midline, no adenopathy, no JVD, no carotid bruit, no c- spine tenderness, neck with full ROM. No meningeal signs, no Kernig's or brudzinskis signs. CHEST: Symmetric, no tenderness at palpation LUNGS: Clear to auscultation bilaterally. No wheezing or crackles. CVS: Regular rate and rhythm, S1 and S2 present, no murmurs or gallops appreciated. ABDOMEN: Soft, decreased bowel sounds and grimasses for pain when I examined the lower abdomen. EXTREMITIES: FROM in all major joints, no edema, positive modeling. SKIN: decreased capillary refill. NEURO: Alert but not oriented. Likely in a postictal state. Triage Information Reviewed: Yes Vital Signs Reviewed: Yes Diagnostics - Laboratory Result Diagrams: 05/31/18 09:41 05/31/18 09:41 Lab Statement: Any lab studies that have been ordered have been reviewed, and results considered in the medical decision making process. - Radiology CXR Radiology Interpretation Completed By: Radiologist - No active cardiopulmonary disease. ED physician has reviewed this imaging report. - EKG 09:32 Cardiac Rate: Other Rate - Atrial fibrillation at 96 bpm EKG Rhythm: Atrial Fibrillation Summary of EKG Findings: similar to previous EKG done 05/22/2018. Re-Evaluation - Re-Evaluation First Eval Re-Evaluation Time: 09:15 Change: Unchanged Comment: obtained more patient information Second Eval Re-Evaluation Time: 09:35 Change: Unchanged Comment: at bedside during bloodwork Third Eval Re-Evaluation Time: 09:50 Change: Unchanged Comment: used US for ABG Fourth Eval Re-Evaluation Time: 10:20 Change: Unchanged Comment: used US for ABG Course/Dx - Course Assessment/Plan: A 77 y/o female brought in by [facility] presents to [facility] with a chief complaint of a seizure at 08:00 05/31/2018. Per EMS the patient had her first seizure one week ago which was possibly due to a UTI and has a Hx of dementia. The patient presents to the ED after her second seizure which was reported to last less than one minute. The patient is able to respond to her name. She lives with her daughter. Per family, the patient is a former smoker, quitting a few years ago, and recently c/o eating less possibly due to abd pain, diarrhea and fatigue. In the physical exam the patient seems to be very ill and toxic looking. The patient seems to be dehydrated with the oral mucosa and lips and they dry. Patient is unable to give a good history the patient is alert and oriented. However in when I do the physical exam the patient grimaces for pain when I examined the abdomen especially when I examined the lower abdomen. Initially we obtained an IV access and the patient was given 2 L of IV fluids. Blood test result shows a chronic normocytic normochromic anemia, platelets 199. INR is 1.7. ABG with a pH of 7.08, PCO2 36 , PO2 is 36, bicarbonate is 9.3, O2 sat is 55.4. Patient's sodium was 148, potassium is 1.8 chloride 128 carbon dioxide 17, anion gap is 13, glucose 37, lactic acid 7.1, calcium is less than 4, phosphorus 2.3, magnesium is 0.9, AST is 121 and AST is 628. Total protein is less than 3 albumin is 1.5-1 is 1.5. Urinalysis is negative for UTI, phenytoin level is a 4.6. In the ED course the patient was given potassium IV, magnesium IV, calcium IV, dextrose IV to correct THE electrolyte abnormalities. At this point I discussed my physical exam, findings and test results with Dr. Onofre from the ICU services who came and assessed the patient. He agrees with management so far, it seems that the symptoms are secondary to bowel ischemia since the lactic acid is 7.1 as well as the abdominal pain, nausea vomiting and diarrhea for the last couple days. Dr. Onofre thinks that the patient doesn't need a CT scan wants point. He discussed all the symptoms, the results with the family members and they opted for not doing the CT scan of the abdomen and pelvis at this point. Patient is DNR/DNI. Therefore the patient will be transferred to the ICU services Dr. Onofre for further workup and management. Patient is very critical. - Diagnoses Provider Diagnoses: Metabolic acidosis, Lower abdominal pain, Hypokalemia, Hypomagnesemia, Hypocalcemia, Acute hepatitis - Physician Notifications Discussed Care Of Patient With: Joby Onofre Time Discussed With Above Provider: 10:20 Instructed by Provider To: Admit As Inpatient - At 10:20 Dr. Onofre was informed about the patient. At 10:35 Dr. Onofre came and saw the patient in the ED. After reviewing lab results he believed the symptoms may be partially due to renal tubular acidosis. At 10:45 he spoke with the family and after speaking with them believes that the symptoms could be due to bowel ischemia. He will accept the patient for admission. - Critical Care Time Critical Care Time: 75-104 min Discharge - Sign-Out/Discharge Documenting (check all that apply): Patient Departure - Admit - Discharge Plan Condition: Critical Disposition: ADMITTED TO [facility] - Billing Disposition and Condition Condition: CRITICAL Disposition: Admitted to [facility] - Attestation Statements Document Initiated by Scribe: Yes Documenting Scribe: Joby Horne Provider For Whom Morris is Documenting (Include Credential): Neymar Upton MD Scribe Attestation: Joby Montano, scribed for Neymar Upton MD on 06/01/18 at 0738. Scribe Documentation Reviewed: Yes Provider Attestation: The documentation as recorded by the Joby franz accurately reflects the service I personally performed and the decisions made by me, Neymar Upton MD Attestations User Type: Provider with Scribe Provider Attestation: The documentation recorded by the silvinaibe accurately reflects the service I personally performed and the decisions made by me.
[2018-05-31] MEDS ORDERED: Acetaminophen SUPP* 650 MG SUPP PR ONE (09:30)
[2018-05-31 09:39] LABS: Urine Appearance Cloudy; Urine Blood 1+ (Negative); Urine Color Yellow; Urine Ketones Negative (Negative); Urine Protein 2+(100 mg/dL) (Negative); Urine Red Blood Cell Trace(0-2/hpf) (Absent); Urine Specific Gravity 1.016 (1.010-1.030); Urine Urobilinogen Negative (Negative); Urine White Blood Cell Trace(0-5/hpf) (Absent)
[2018-05-31 10:00] LABS: Hematocrit 28 % (35-47); Hemoglobin 8.6 g/dl (12.0-16.0); Mean Corpuscular HGB Conc 31 g/dl (31-36); Mean Corpuscular Hemoglobin 29 pg (27-31); Mean Corpuscular Volume 95 fL (80-97); Red Blood Count 2.94 10^6/ul (4.00-5.40); Red Cell Distribution Width 16 % (10.5-15); White Blood Count 8.2 10^3/ul (3.5-10.8)
[2018-05-31 10:05] LABS: INR 1.7 (0.77-1.02)
[2018-05-31 10:20] LABS: EGFR Non-African American 79.8 (>60)
[2018-05-31] MEDS ORDERED: Dextrose 50% Syringe 50 ML* 25 GM/50 ML SYRINGE ONE (10:25)
[2018-05-31] MEDS ORDERED: KCL 20 MEQ/100 ML IVPREMIX* 20 MEQ/100 ML BAG ONE (10:26)
[2018-05-31] MEDS ORDERED: Magnesium Sulfate 2 GM IV* 2 GM/50 ML BAG ONE (10:27)
[2018-05-31] MEDS ORDERED: Dextrose 50% Syringe 50 ML* 25 GM/50 ML SYRINGE IV PUSH ONE (10:27)
[2018-05-31 10:29] LABS: ABS Basophils 0 10^3/ul (0-0.2); ABS Eosinophils 0 10^3/ul (0-0.6); ABS Lymphocytes 0.2 10^3/ul (1.0-4.8); ABS Monocytes 0.4 10^3/ul (0-0.8); ABS Neutrophils 7.6 10^3/ul (1.5-7.7); ABS Nucleated RBC 0 10^3/ul; Eosinophil % 0.1 % (0-6); Lymphocyte % 2.5 % (25-47); Nucleated Red Blood Cells % 0.1; Platelet Count 189 10^3/ul (150-450)
[2018-05-31] MEDS ORDERED: Magnesium Sulfate 2 GM IV* 2 GM/50 ML BAG IVPB ONE (10:35)
[2018-05-31] MEDS ORDERED: KCL 20 MEQ/100 ML IVPREMIX* 20 MEQ/100 ML BAG IV SCH (11:00)
[2018-05-31 11:23] VITALS: BP 90/60
[2018-05-31] MEDS ORDERED: LORazepam INJ* 2 MG/ML 1 ML VIAL ONE (12:10)
[2018-05-31] MEDS ORDERED: Morphine VIAL* 10 MG/ML 1 ML VIAL ONE (12:33)
[2018-05-31] MEDS ORDERED: Morphine VIAL* 4 MG/ML VIAL (1 ml vial) IV PRN (12:34)
--- NOTE | 2018-05-31 20:21 | HP ---
ADMISSION HISTORY AND PHYSICAL: DATE OF ADMISSION: 05/31/18 REASON FOR ADMISSION: Multiple medical problems. HISTORY OF PRESENT ILLNESS: The patient is a 77-year-old white female with a history of dementia, hypertension, and seizure disorder, who is brought to the emergency room today with a 2- to 3-day history of abdominal pain, nausea, vomiting, diarrhea, and in the emergency department had multiple problems including lactic acidosis with pH < 7.1, mottling of the arms and legs, bicarb of 7, magnesium of 0.9, total calcium of 4, potassium 1.8. The patient was agitated in bed and not responding to verbal commands. She was recently hospitalized here for an apparent generalized seizure disorder and was discharged on Dilantin. Only other history available at this time from the family is that the patient had difficulty controlling blood pressure and was also told about one year ago after an upper GI endoscopy that she might have future difficulties with low perfusion of the bowel. MEDICATIONS: Outpatient meds: 1. Amlodipine 10 mg daily. 2. Effexor 150 mg daily. 3. Zocor 20 mg daily. 4. Seroquel 50 mg at bedtime. 5. Dilantin 300 mg at bedtime. 6. Omeprazole 20 mg daily. 7. Metoprolol 50 mg daily. 8. Amiodarone 100 mg daily. 9. Aspirin 81 mg daily. ALLERGIES: Drug allergies include: ENOXAPARIN (reaction HIT), GABAPENTIN ( reaction confusion), SULFA DRUG (unknown reaction), and BEE VENOM (unknown reaction). REVIEW OF SYSTEMS: Unobtainable. PHYSICAL EXAMINATION GENERAL: The patient was awake but did not respond to verbal commands, and was agitated and tachypneic. VITAL SIGNS: Temp 100.1, rectal; heart rate 100 and regular; respiratory rate 40 per minute; blood pressure 90/60. HEENT: The patient had a fetid odor to the breath. There is no facial asymmetry and pupils were reactive to light. NECK: Supple. LUNGS: Chest was clear to auscultation. CARDIAC: Reveals a 2/6 early systolic murmur heard throughout the precordium. ABDOMEN: Not distended. There was diffuse tenderness to palpation without rebound. EXTREMITIES: Cold and mottled and peripheral pulses were diminished especially in the legs. DIAGNOSTIC STUDIES/LAB DATA: Admission laboratory abnormalities as mentioned above. Additional findings include Troponin 0.05. Albumin 1.5, total protein less than 3. AST 821, ALT 628. INR 1.7. Arterial blood gas showed a pH of 7.08, CO2 36, PO2 36, bicarb 9.3. EKG showed atrial fibrillation with a left bundle branch block pattern and no acute ST or T-wave changes. IMPRESSION AND PLAN: This patient has multiple problems, and the best way to tie this all together is the diagnosis of bowel ischemia with ischemic hepatitis. The patient is a DNR and DNI, so plan will include general supportive care and comfort measures. The patient is too agitated for a CT scan of the abdomen and since she is not a surgical candidate because of her overall condition, I see no need to attempt to obtain an abdominal CT scan. I have spoken with the family about the patient's present condition and the probable diagnosis. Yhe prognosis here is very poor, and family was informed of such. TIME SPENT: Critical care time 60 minutes. [id number]/[facility] #: [id number] NANNETTE
--- NOTE | 2018-06-01 00:05 | DS ---
SUMMARY: DATE OF ADMISSION: 05/31/18 DATE OF DEMISE: 05/31/18 HOSPITAL COURSE: This was a 77-year-old white female with a history of hypertension, prior GI bleeding, and atrial fibrillation, who was brought to the emergency room with a 2- to 3-day history of abdominal pain, nausea, vomiting, and diarrhea, and in the ED was found to have several severe metabolic abnormalities including a bicarb of 7, a serum lactate of 7, arterial pH was 7.08, potassium of 1.8, magnesium of 0.9, calcium of 4, and the patient was noted to be mottled. There was also elevation of liver enzymes with her transaminases close to 1000 and an INR of 1.7. The patient was given a preliminary diagnosis of bowel ischemia and was brought to the intensive care unit. The patient was DNR/DNI by prior request with family corroborating. Upon admission to the ICU, the patient was noted to have agonal respirations, and so after speaking with the family, comfort measures were instituted and the patient was given morphine for sedation and family stayed with the patient at the bedside. The patient was pronounced at 1:40 p.m. on the day of admission, 05/31/18. The pesticide use medical coordinator was called and signed off on the case. The family denied autopsy and patient is not a candidate for organ donation. FINAL DIAGNOSES: Bowel ischemia, probably related to atrial fibrillation and/ or hypertension. TIME SPENT: Sixty minutes (including time in discussions with the family). [id number]/[facility] #: [id number] MTDD
== END 2018-05-31 13:40 | disposition expired | DRG 394 ==
LOC: ED 08:47 → ICU 11:11
PROVIDERS: ADMIT Internal Medicine Critical Care Medicine; ATTEND Internal Medicine Critical Care Medicine
DX: K55.9 Vascular disorder of intestine, unspecified (principal); E87.2 Acidosis; K75.89 Other specified inflammatory liver diseases; G40.909 Epilepsy, unspecified, not intractable, without status epilepticus; Z96.651 Presence of right artificial knee joint; I50.9 Heart failure, unspecified; J44.9 Chronic obstructive pulmonary disease, unspecified; I11.0 Hypertensive heart disease with heart failure; I48.0 Paroxysmal atrial fibrillation; E78.5 Hyperlipidemia, unspecified; K21.9 Gastro-esophageal reflux disease without esophagitis; G89.29 Other chronic pain; M54.9 Dorsalgia, unspecified; M19.90 Unspecified osteoarthritis, unspecified site; G43.909 Migraine, unspecified, not intractable, without status migrainosus; F32.9 Major depressive disorder, single episode, unspecified; G30.9 Alzheimer's disease, unspecified; E87.6 Hypokalemia; I44.7 Left bundle-branch block, unspecified; E83.42 Hypomagnesemia; E83.51 Hypocalcemia; F02.80 Dementia in other diseases classified elsewhere, unspecified severity, without behavioral disturbance, psychotic disturbance, mood disturbance, and anxiety; Z88.2 Allergy status to sulfonamides; Z88.8 Allergy status to other drugs, medicaments and biological substances; Z86.14 Personal history of Methicillin resistant Staphylococcus aureus infection; Z86.718 Personal history of other venous thrombosis and embolism; Z88.6 Allergy status to analgesic agent; Z91.030 Bee allergy status; Z98.42 Cataract extraction status, left eye; Z98.41 Cataract extraction status, right eye; Z90.49 Acquired absence of other specified parts of digestive tract; Z82.0 Family history of epilepsy and other diseases of the nervous system; Z87.891 Personal history of nicotine dependence
CPT/HCPCS: 36415; 71045; 80053; 80185; 80307; 80320; 80329; 81003; 81015; 82550; 82803; 83605; 83735; 84100; 84484; 85025; 85610; 85730; 87040; 87077; 87086; 87205; 93005; 99285; G0480; J2060; J2270; J3475; J3480